=== PATIENT | male | born 1950 | race African-American/Black ===

== ENCOUNTER 2016-11-20 11:33 | Observation (INO) | payer MEDICARE, OTHER ==
[~2016-11-20] VITALS: Ht 193 cm; Wt 80.0 kg
[2016-11-20] VITALS (8 sets, daily range): BP systolic 131–184; BP diastolic 65–83; PULSE 60–101; RESP 15–20; TEMP 97.7–98.1; O2SAT 99–100
[~2016-11-20 11:33] MED LIST: ASPI81 PO; ENAL5TAB PO; FURO1TAB93 PO; IPRA17I INH; LOPR50TA12 PO; SPIR50TA21 PO; TAMS0.4C67 PO
[2016-11-20] MEDS ORDERED: SPIR25TA PO (11:51)
[2016-11-20] MEDS ORDERED: ASPI81TA67 PO (11:51)
[2016-11-20] MEDS ORDERED: TAMS5CAP PO (11:51)
[2016-11-20] MEDS ORDERED: ENAL2.5T PO (11:51)
[2016-11-20] MEDS ORDERED: FURO40TA PO (11:51)
[2016-11-20] MEDS ORDERED: METO50TA PO (11:51)
[2016-11-20] MEDS ORDERED: DIGO0.12 PO (11:51)
[2016-11-20] MEDS ORDERED: SODIUM CHLORIDE 0.9% FLUSH 10 ML FLUSH IVF PRN (12:00)
--- NOTE | 2016-11-20 12:06 | PD ---
HPI Chief Complaint: Seizure Time Seen by Provider: 11:53 Travel History International Travel<30 days: No Contact w/Intl Traveler<30days: No Traveled to known affect area: No History of Present Illness HPI This is a very pleasant 66-year-old male with a history of hypertension, CHF, cardiomyopathy, who presents today after having an episode where he became confused. Initial report was there was a seizure however there is no reported seizure activity. According to the patient, he was talking with his sister when he became confused and the next thing he remembers is being in the ambulance. The patient has no previous history of seizure. He has no history of stroke. There was no reported incontinence. He has no pain or discomfort on exam. The patient is awake and appropriate and answering questions. Family arrived at 12:15 and give history that they were with him. They state that while there at the je[employer] witness unloading groceries he cried out and started shaking. She reports that the test equipment mechanic caught him and he was shaking and foaming at the mouth. This lasted for about less than a minute. Family report that he had a first seizure one year ago. He was not put on any medication and he was not admitted. PFSH Past Medical History Blood Disorders: No Cancer: No Cardiovascular Problems: Yes High Cholesterol: Yes Congestive Heart Failure: Yes Diminished Hearing: No Endocrine: No Genitourinary: No Hypertension: Yes Immune Disorder: No Implanted Vascular Access Dvce: No Musculoskeletal: Yes Neurologic: Yes Psychiatric: No Reproductive: No Respiratory: Yes Seizures: Yes (once before today years ago) Influenza Vaccination: No Past Surgical History Surgical History: No Previous Surgery Abdominal Surgery: No Cardiac Surgery: No Ear Surgery: No Endocrine Surgery: No Eye Surgery: No Genitourinary Surgery: No Gynecologic Surgery: No Oral Surgery: No Thoracic Surgery: No Social History Alcohol Use: Yes (OCCASSIONAL BEER DRINKER) Tobacco Use: Yes (cigars on occasion) Substance Use: No Allergies-Medications (Allergen,Severity, Reaction): Coded Allergies: No Known Allergies (Verified , 11/20/16) Reported Meds & Prescriptions Reported Meds & Active Scripts Active Reported Flomax (Tamsulosin HCl) 0.4 Mg Cap 0.4 Mg PO HS Spironolactone 25 Mg Tab 25 Mg PO BIDPC Furosemide 40 Mg Tab 40 Mg PO DAILY Enalapril (Enalapril Maleate) 2.5 Mg Tab 2.5 Mg PO BID Digoxin 0.125 Mg Tab 0.125 Mg PO DAILY Aspirin DR (Aspirin) 81 Mg Tabdr 81 Mg PO DAILY Review of Systems Except as stated in HPI: all other systems reviewed are Neg General / Constitutional: No: Fever, Chills Eyes: No: Blurred Vision, Photophobia HENT: No: Headaches, Lightheadedness, Neck Pain Cardiovascular: No: Chest Pain or Discomfort, Palpitations, Irregular Rhythm Respiratory: No: Cough, Shortness of Breath Gastrointestinal: No: Nausea, Vomiting, Abdominal Pain Musculoskeletal: No: Weakness, Pain Neurologic: Positive: Change in Mentation, No: Weakness, Dizziness, Headache, Incontinence Physical Exam Exam Limitations: Uncooperative Narrative GENERAL: Well-developed well-nourished male in no acute respiratory distress. SKIN: Focused skin assessment warm/dry. HEAD: Atraumatic. Normocephalic. EYES: No scleral icterus. No injection or drainage. ENT: No nasal bleeding or discharge. Mucous membranes pink and moist. NECK: Trachea midline. No JVD. CARDIOVASCULAR: Regular rate and rhythm. No murmur appreciated. RESPIRATORY: No accessory muscle use. Clear to auscultation. Breath sounds equal bilaterally. GASTROINTESTINAL: Abdomen soft, non-tender, nondistended. MUSCULOSKELETAL: No obvious deformities. No clubbing. No cyanosis. No edema. Chronic venous stasis changes of the bilateral lower extremities NEUROLOGICAL: Awake and alert. No obvious cranial nerve deficits. Motor grossly within normal limits. Normal speech. A and O 4 Data Data Last Documented VS Vital Signs Date Time Temp Pulse Resp B/P Pulse Ox O2 Delivery O2 Flow Rate FiO2 11/20/16 12:16 99 Room Air 11/20/16 12:15 97.7 11/20/16 11:42 101 20 184/83 2 Orders Complete Blood Count With Diff (11/20/16 11:57) Comprehensive Metabolic Panel (11/20/16 11:57) Ckmb (Isoenzyme) Profile (11/20/16 11:57) Troponin I (11/20/16 11:57) Act Partial Throm Time (Ptt) (11/20/16 11:57) Prothrombin Time / Inr (Pt) (11/20/16 11:57) Chest, Single Ap (11/20/16 11:57) Ct Brain W/O Iv Contrast(Rout) (11/20/16 11:57) Ecg Monitoring (11/20/16 11:57) Iv Access Insert/Monitor (11/20/16 11:57) Oximetry (11/20/16 11:57) Sodium Chloride 0.9% Flush (Ns Flush) (11/20/16 12:00) CKMB (11/20/16 12:10) CKMB% (11/20/16 12:10) Admit Order (Ed Use Only) (11/20/16 13:38) Consult Neurology (11/20/16 ) Labs Laboratory Tests Test 11/20/16 12:10 White Blood Count 14.7 TH/MM3 Red Blood Count 3.64 MIL/MM3 Hemoglobin 10.6 GM/DL Hematocrit 33.0 % Mean Corpuscular Volume 90.6 FL Mean Corpuscular Hemoglobin 29.1 PG Mean Corpuscular Hemoglobin 32.1 % Concent Red Cell Distribution Width 14.9 % Platelet Count 372 TH/MM3 Mean Platelet Volume 9.2 FL Neutrophils (%) (Auto) 68.3 % Lymphocytes (%) (Auto) 19.4 % Monocytes (%) (Auto) 9.9 % Eosinophils (%) (Auto) 1.7 % Basophils (%) (Auto) 0.7 % Neutrophils # (Auto) 10.0 TH/MM3 Lymphocytes # (Auto) 2.8 TH/MM3 Monocytes # (Auto) 1.4 TH/MM3 Eosinophils # (Auto) 0.2 TH/MM3 Basophils # (Auto) 0.1 TH/MM3 CBC Comment DIFF FINAL Differential Comment Prothrombin Time 10.8 SEC Prothromb Time International 1.0 RATIO Ratio Activated Partial 25.2 SEC Thromboplast Time Sodium Level 138 MEQ/L Potassium Level 3.3 MEQ/L Chloride Level 105 MEQ/L Carbon Dioxide Level 14.4 MEQ/L Anion Gap 19 MEQ/L Blood Urea Nitrogen 15 MG/DL Creatinine 1.01 MG/DL Estimat Glomerular Filtration 90 ML/MIN Rate Random Glucose 90 MG/DL Calcium Level 8.8 MG/DL Total Bilirubin 0.3 MG/DL Aspartate Amino Transf 63 U/L (AST/SGOT) Alanine Aminotransferase 25 U/L (ALT/SGPT) Alkaline Phosphatase 318 U/L Total Creatine Kinase 334 U/L Creatine Kinase MB 7.7 NG/ML Creatine Kinase MB % 2.3 % Troponin I LESS THAN 0.02 NG/ML Total Protein 7.3 GM/DL Albumin 3.0 GM/DL MDM Medical Decision Making Medical Screen Exam Complete: Yes Emergency Medical Condition: Yes Differential Diagnosis TIA versus syncope versus seizure versus vasovagal syncope Narrative Course 66-year-old male presents after having a seizure. The patient had one last year. At that time he was not started on any antiseizure medications and was discharged home. Given this is his second seizure, I feel he should be admitted and have a neurology consult. The patient has not had any seizures since he's been here. He is awake alert and appropriate. He'll be admitted to the resident team. Case was discussed with the residents and will be admitted to Dr. Sargent's team. Diagnosis Primary Impression: Seizure Additional Impressions: Hypertension Cardiomyopathy Admitting Information Admitting Physician Requests: Admit Guanaco Steven MD November 20, 2016 12:06
[2016-11-20 12:18] LABS: BASOPHIL # 0.1 TH/MM3 (0-0.2); BASOPHIL % 0.7 % (0.0-2.0); EOSINOPHIL # 0.2 TH/MM3 (0-0.4); EOSINOPHIL % 1.7 % (0.0-4.0); HEMO FLAGS DIFF FINAL; LYMPH % 19.4 % (9.0-44.0); LYMPHOCYTE # 2.8 TH/MM3 (1.0-4.8); MEAN CELL VOLUME 90.6 FL (80.0-100.0); MEAN CORPUSCULAR HEMOGLOBIN 29.1 PG (27.0-34.0); MEAN CORPUSCULAR HGB CONC 32.1 % (32.0-36.0); MONO % 9.9 % (0.0-8.0); NEUT % 68.3 % (16.0-70.0); PLATELET COUNT 372 TH/MM3 (150-450); RED BLOOD COUNT 3.64 MIL/MM3 (4.50-5.90); RED CELL DISTRIBUTION WIDTH 14.9 % (11.6-17.2); WHITE BLOOD COUNT 14.7 TH/MM3 (4.0-11.0)
--- NOTE | 2016-11-20 12:24 | RADRPT ---
EXAM DATE/TIME: 11/20/2016 12:02 [facility] COMPARISON: No previous studies available for comparison. INDICATIONS : Syncope with shortness of breath. MEDICAL HISTORY : None. SURGICAL HISTORY : None. ENCOUNTER: Initial ACUITY: 1 day PAIN SCORE: 0/10 LOCATION: Bilateral chest FINDINGS: A single view of the chest demonstrates the lungs to be symmetrically aerated without evidence of mas s, infiltrate or effusion. The cardiomediastinal contours are unremarkable. Osseous structures are intact. CONCLUSION: No acute disease. Arnaud Madrid MD on November 20, 2016 at 12:22 Board Certified Radiologist. This report was verified electronically.
[2016-11-20 12:28] LABS: APTT (PATIENT) 25.2 SEC (24.3-30.1); PROTHROMBIN TIME - PATIENT 10.8 SEC (9.8-11.6)
[2016-11-20 12:33] LABS: ALT (GPT) 25 U/L (12-78); ANION GAP 19 MEQ/L (5-15); AST (GOT) 63 U/L (15-37); BICARBONATE 14.4 MEQ/L (21.0-32.0); BLOOD UREA NITROGEN 15 MG/DL (7-18); CHLORIDE 105 MEQ/L (98-107); GLOMERULAR FILTRATION RATE 90 ML/MIN (>89); POTASSIUM 3.3 MEQ/L (3.5-5.1); SODIUM (NA) 138 MEQ/L (136-145)
[2016-11-20 12:37] LABS: ALKALINE PHOSPHATASE 318 U/L (45-117); CREATINE KINASE 334 U/L (39-308); TOTAL BILIRUBIN ADULT 0.3 MG/DL (0.2-1.0)
--- NOTE | 2016-11-20 12:49 | RADRPT ---
EXAM DATE/TIME: 11/20/2016 12:30 [facility] COMPARISON: CT BRAIN W/O CONTRAST, September 30, 2015, 13:23. INDICATIONS : Confusion and dizziness since this morning. RADIATION DOSE: 56.38 CTDIvol (mGy) MEDICAL HISTORY : Hypertension. Cardiovascular disease SURGICAL HISTORY : ENCOUNTER: ACUITY: PAIN SCALE: LOCATION: TECHNIQUE: Multiple contiguous axial images were obtained of the head. Using automated exposure control and adj ustment of the mA and/or kV according to patient size, radiation dose was kept as low as reasonably a chievable to obtain optimal diagnostic quality images. FINDINGS: CEREBRUM: The ventricles are normal for age. No evidence of midline shift, mass lesion, hemorrhage or acute in farction. No extra-axial fluid collections are seen. POSTERIOR FOSSA: The cerebellum and brainstem are intact. The 4th ventricle is midline. The cerebellopontine angle i s unremarkable. EXTRACRANIAL: The visualized portion of the orbits is intact. SKULL: The calvaria is intact. No evidence of skull fracture. CONCLUSION: No acute intracranial disease. Jeff oWlf MD on November 20, 2016 at 12:46 Board Certified Radiologist. This report was verified electronically.
[2016-11-20 12:50] LABS: CKMB 7.7 NG/ML (0.5-3.6)
--- NOTE | 2016-11-20 13:46 | HHI.HP ---
[facility] Service Family Medicine Primary Care Physician Daniel Correa MD Admission Diagnosis Seizure, htn, cardiomyopathy Diagnoses: International Travel<30 Days: No Contact w/Intl Traveler<30days: No Known Affected Area: No History of Present Illness Patient is a 66-year-old male with a past medical history of hypertension, cardiomyopathy, congestive heart failure, and BPH that presents to the [facility] ED with a chief complaints of a witnessed seizure that happened around 11:30 AM this morning. The patient said that he has been feeling well with no acute illnesses in the last 2 weeks. The patient does not remember what happened, history was obtained from his sister who witnessed the seizure event. This morning he was at his sikh and he along with his sister and other sikh members were loading groceries into a car. 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 The patient's sister states that he fell back but did not hit his head because one of the sikh members caught him before he fell. His whole body was shaking and he was foaming at the mouth.the episode lasted for about 4 minutes. Patient did have a witnessed seizure in September 2015 for which he was evaluated at the [facility] ED. At that time, his EKG did not show any signs of dysrhythmia except for premature atrial complexes. His vital signs were stable and he was completely symptom free with no significant metabolic issues. He was offered to be admitted for further evaluation of his new onset seizure but he declined at that time and opted to follow up as an outpatient. He denies a history of febrile seizures or a seizure disorder in childhood. Patient states that he has not been taking his medications as prescribed because when he takes them he feels nauseous. He last took his medications 2 days ago. (Eko,Donna Tomlinson MD R1) Review of Systems Constitutional: DENIES: Fever, Chills Eyes: DENIES: Blurred vision, Eye pain Ears, nose, mouth, throat: COMPLAINS OF: Running Nose (every morning early), DENIES: Throat pain, Ear Pain Respiratory: COMPLAINS OF: Cough (every once in a while), DENIES: Shortness of breath Cardiovascular: COMPLAINS OF: Chest pain (shallow chest pain - like a little electric shock), Palpitations (one time), Syncope, Dyspnea on Exertion Gastrointestinal: COMPLAINS OF: Abdominal pain (chronic, once in a while, generalized ), DENIES: Bloody stools, Constipation, Nausea Genitourinary: COMPLAINS OF: Urinary incontinence, Urgency, Dysuria Musculoskeletal: DENIES: Muscle aches, Back pain, Neck pain Integumentary: COMPLAINS OF: Pruritus, DENIES: Rash Hematologic/lymphatic: DENIES: Bruising Neurologic: COMPLAINS OF: Headache (frontal), Localized weakness (left arm), Paresthesias, Seizures, Poor Balance Psychiatric: DENIES: Anxiety, Depression (Donna Cartagena MD R1) Past Family Social History Past Medical History Hypertension CHF Cardiomyopathy BPH Past Surgical History No history of surgeries Reported Medications Reported Meds & Active Scripts Active Reported Flomax (Tamsulosin HCl) 0.4 Mg Cap 0.4 Mg PO HS Spironolactone 25 Mg Tab 25 Mg PO BIDPC Furosemide 40 Mg Tab 40 Mg PO DAILY Enalapril (Enalapril Maleate) 2.5 Mg Tab 2.5 Mg PO BID Digoxin 0.125 Mg Tab 0.125 Mg PO DAILY Aspirin DR (Aspirin) 81 Mg Tabdr 81 Mg PO DAILY (Donna Cartagena MD R1) Allergies: Coded Allergies: No Known Allergies (Verified , 11/20/16) Family History No family history of seizures Sister has hypertension Denies hypertension in parents Social History Smokes 4-5 cigarettes daily Started smoking as a teenager and smoked more heavily in the past Drinks 1-2 beers every few days Denies drug use or illegal prescription drug use No marijuana use (Donna Cartagena MD R1) Physical Exam Vital Signs Vital Signs Date Time Temp Pulse Resp B/P Pulse Ox O2 Delivery O2 Flow Rate FiO2 11/20/16 13:42 76 15 147/68 100 Room Air 11/20/16 12:16 99 Room Air 11/20/16 12:15 97.7 99 Room Air 11/20/16 11:42 101 20 184/83 99 Nasal Cannula 2 Physical Exam GENERAL: This is a well-nourished, well-developed patient, in no apparent distress. Lying in bed, sister at bedside, very pleasant. SKIN: No rashes, ecchymoses or lesions. Cool and dry. No sacral ulcers noted. HEAD: Atraumatic. Normocephalic. No temporal or scalp tenderness. EYES: Pupils equal round and reactive. Extraocular motions intact. No scleral icterus. No injection or drainage. ENT: Nose without bleeding, purulent drainage or septal hematoma. Multiple lacerations on both sides of his tongue. Throat without erythema, tonsillar hypertrophy or exudate. Uvula midline. Airway patent. NECK: Trachea midline. No JVD or lymphadenopathy. Supple, nontender, no meningeal signs. CARDIOVASCULAR: Regular rate and rhythm without murmurs, gallops, or rubs. RESPIRATORY: Clear to auscultation. Breath sounds equal bilaterally. No wheezes , rales, or rhonchi. GASTROINTESTINAL: Abdomen soft, non-tender, nondistended. No hepato-splenomegaly , or palpable masses. No guarding. MUSCULOSKELETAL: Extremities without clubbing, cyanosis, or edema. No joint tenderness, effusion, or edema noted. No calf tenderness. NEUROLOGICAL: Awake and alert. Cranial nerves II through XII intact. Motor and sensory grossly within normal limits. Five out of 5 muscle strength in all muscle groups. Normal speech. [id number] intact. No pronator drift. No focal neurological deficits. Laboratory Laboratory Tests Test 11/20/16 12:10 White Blood Count 14.7 Red Blood Count 3.64 Hemoglobin 10.6 Hematocrit 33.0 Mean Corpuscular Volume 90.6 Mean Corpuscular Hemoglobin 29.1 Mean Corpuscular Hemoglobin 32.1 Concent Red Cell Distribution Width 14.9 Platelet Count 372 Mean Platelet Volume 9.2 Neutrophils (%) (Auto) 68.3 Lymphocytes (%) (Auto) 19.4 Monocytes (%) (Auto) 9.9 Eosinophils (%) (Auto) 1.7 Basophils (%) (Auto) 0.7 Neutrophils # (Auto) 10.0 Lymphocytes # (Auto) 2.8 Monocytes # (Auto) 1.4 Eosinophils # (Auto) 0.2 Basophils # (Auto) 0.1 CBC Comment DIFF FINAL Differential Comment Prothrombin Time 10.8 Prothromb Time International 1.0 Ratio Activated Partial 25.2 Thromboplast Time Sodium Level 138 Potassium Level 3.3 Chloride Level 105 Carbon Dioxide Level 14.4 Anion Gap 19 Blood Urea Nitrogen 15 Creatinine 1.01 Estimat Glomerular Filtration 90 Rate Random Glucose 90 Calcium Level 8.8 Total Bilirubin 0.3 Aspartate Amino Transf 63 (AST/SGOT) Alanine Aminotransferase 25 (ALT/SGPT) Alkaline Phosphatase 318 Total Creatine Kinase 334 Creatine Kinase MB 7.7 Creatine Kinase MB % 2.3 Troponin I LESS THAN 0.02 Total Protein 7.3 Albumin 3.0 (Donna Cartagena MD R1) Result Diagram: 11/20/16 1210 11/20/16 1210 Imaging Last Impressions Head CT 11/20/16 1157 Signed Impressions: Service Date/Time: Sunday, November 20, 2016 12:30 - CONCLUSION: No acute intracranial disease. Jeff Wolf MD Chest X-Ray 11/20/16 1157 Signed Impressions: Service Date/Time: Sunday, November 20, 2016 12:02 - CONCLUSION: No acute disease. Arnaud Madrid MD Course In the ED, a chest x-ray and CT brain without contrast were performed which were negative. Neurology was consulted. (Donna Cartagena MD R1) Assessment and Plan Assessment and Plan 66-year-old male with a past medical history of hypertension, cardiomyopathy, congestive heart failure, and BPH presents to the ED after a witnessed generalized tonic-clonic seizure. This is the patient's second witnessed seizure episode. He will be admitted on observation for further evaluation and management. Neurology has been consulted to help with management. Code Status Full code Discussed Condition With Discussed with Dr. Mars, PGY 2 (Donna Cartagena MD R1) Attending Attestation THIS CASE WAS DISCUSSED WITH THE RESIDENT PHYSICIAN. I HAVE REVIEWED THE RECORD AND AGREE WITH THE ABOVE NOTE AND PLAN OF CARE WAS DISCUSSED. I HAVE AUTHORIZED THE ORDER FOR PLACEMENT IN OUT-PATIENT OBSERVATION STATUS. (Ashok Nieves MD) Problem List: (1) Seizure Status: Acute Plan: Witnessed generalized tonic-clonic seizure with tongue biting, lasted for about 4 minutes per sister's report Second episode of witnessed seizure in a little over a year Not currently on any anti-seizure medications CT brain without contrast performed and negative Chest x-ray negative Metabolic panel significant for potassium of 3.3, anion gap of 19, elevated AST of 63 and alkaline phosphatase of 318 Creatinine kinase slightly elevated at 334 - most likely from muscle breakdown during seizure Troponin negative at less than 0.02, will trend 2 EKG in the ED shows sinus tachycardia (rate of 101) with occasional PVCs, left ventricular hypertrophy and possible left atrial enlargement, inverted T waves in V4 through 6. No signs of acute ACS We'll trend EKG 2 with troponins EEG pending Urinalysis with reflex culture pending Blood cultures pending Digoxin level pending UDS and alcohol level pending Neurology consulted - appreciate recommendations Ativan 2 mg IV when necessary seizure Tylenol 650 mg every 4 hours when necessary pain 1-10 (2) Congestive heart failure Status: Acute Plan: History of congestive heart failure, last admission at [facility] in December 2012 Echo performed at that time showed a dilated left ventricle with severely reduced systolic function, EF of 25-30%, mild to moderate aortic valve regurgitation, severe mitral valve regurgitation, moderate to severe tricuspid valve regurgitation, mild pulmonic valve regurgitation Patient's was started on digoxin 0.125 mg by mouth daily at that time Continue Lasix 40 mg by mouth daily Continue enalapril 2.5 mg by mouth daily Continue metoprolol 50 mg by mouth daily Continue spironolactone 25 mg by mouth daily (3) Hypertension Status: Acute Plan: * BP on admission was 184/83 * Patient states that he did not take any of his morning medications * Continue Vasotec 2.5 mg by mouth twice a day * Metoprolol 50 mg by mouth twice a day * Spironolactone 25 mg by mouth twice a day after meals (4) BPH (benign prostatic hyperplasia) Status: Acute Plan: Continue tamsulosin 0.4 mg by mouth at bedtime (5) FEN/DVT PPX/GI PPX/Nursing Orders Status: Acute Plan: Fluids: Oral fluids currently, may start fluids after echocardiogram Electrolytes: Will monitor and replace as needed Nutrition: Heart-healthy diet DVT Prophylaxis: Bilateral SCDs, Heparin subcutaneous Q8h GI Prophylaxis: Not required -Vitals Q4h -Monitor I's and O's -Fall precautions -Neurochecks -Seizure precautions -residential monitor with telemetry with continuous vital signs -Activity bed rest Disposition: Pending seizure evaluation (Donna Cartagena MD R1) Problem Qualifiers (1) Congestive heart failure: Qualified Code: I50.22 - Chronic systolic congestive heart failure Donna Cartagena MD R1 November 20, 2016 13:46 Ashok Nieves MD November 21, 2016 14:06
[2016-11-20] MEDS ORDERED: SODIUM CHLORIDE 0.9% FLUSH 10 ML FLUSH IV FLUSH PRN (14:30)
[2016-11-20] MEDS ORDERED: LORazepam 2 MG/ML VIAL IV PRN (14:30)
[2016-11-20] MEDS ORDERED: ACETAMINOPHEN 325 MG TAB PO PRN (14:30)
[2016-11-20] MEDS: SODIUM CHLORIDE 0.9% FLUSH 10 ML FLUSH IV FLUSH SCH ×2 (15:37→23:14)
[2016-11-20 15:54] LABS: DIGOXIN 0.1 NG/ML (0.8-2.0); MAGNESIUM 2.2 MG/DL (1.5-2.5)
[2016-11-20] MEDS ORDERED: ENALAPRILAT 1.25 MG/ML VIAL IV PUSH ONE (16:15)
[2016-11-20 16:29] LABS: BLOOD, URINE NEG (NEG); COMMENT (UR) CULT NOT INDICATED; CULTURE IF INDICATED CULT NOT INDICATED; GLUCOSE,URINE NEG (NEG); GRANULAR CAST, URINE 12 /lpf; HYALINE CAST, URINE 4 /lpf (RARE); KETONE, URINE NEG (NEG); MUCUS URINE FEW /lpf (OCC); NITRITE,URINE NEG (NEG); PH, URINE 5.5 (5.0-8.5); SQUAMOUS EPITHELIAL CELL URINE <1 /hpf (0-5); URINE COLOR YELLOW (YELLW/STRAW)
[2016-11-20 16:34] LABS: AMPHETAMINE, URINE NEG (NEG); BARBITURATES, URINE NEG (NEG); COCAINE, URINE NEG (NEG)
[2016-11-20] MEDS: SPIRONOLACTONE 25 MG TAB PO SCH (16:43)
[2016-11-20] MEDS ORDERED: POTASSIUM CHLORIDE 10 MEQ CONTROLLED RELEASE TAB PO ONE (17:00)
--- NOTE | 2016-11-20 20:37 | MB ---
cc: JEREL CHRISTIANSON DATE OF CONSULTATION 11/20/16 He is a 66-year-old right-handed man with hypertension. He is otherwise very healthy he tells me. About a year and a half ago he was going to a gas station. The next thing he knew he woke up in the ambulance, was told he had a seizure. Today he was at [employer], felt a little lightheaded and then the next he knows he was in the ambulance. He did bite his tongue. Subsequently admitted to the hospital. He has not been seen by neurology before here. EKG shows sinus rhythm here possibly some lateral ischemia. He was evidently shaking and foaming at the mouth, according to the city clerk. He has not been taking seizure meds. He denied any cardiovascular problems to me. MEDICATIONS 1. Flomax 2. Spironolactone 3. Lasix. 4. Enalapril. 5. Digoxin. 6. Aspirin. He denies any Wellbutrin or Tramadol use. REVIEW OF SYSTEMS He denied any recent fever, illness or headache. He denied any diabetes, hypercholesterolemia, myocardial infarction, coronary artery bypass graft, cardiac arrhythmia, stent, angioplasty, A fib, Coumadin, renal, hepatic or pulmonary disease, thyroid disease, lupus, ulcer, cancer or stroke. SOCIAL HISTORY He is a smoker. He has one drink beer day. Lives by himself. FAMILY HISTORY Negative for cancer, seizure, stroke. PAST MEDICAL HISTORY As above. He denies any history of seizure-like episodes, odd smells, taste, lena vu, waking up, wet the bed or biting his tongue. 1. Some cardiomyopathy although he did not know that himself. 2. CHF, 3. Hypertension, 4. BPH PHYSICAL EXAMINATION VITAL SIGNS: afebrile, 86, 18, 131/71. There were no carotid bruits. HEART: Regular rhythm. I did not detect a murmur. Pupils are equal, visual blandon are full. Extraocular movements intact without nystagmus. Face symmetric with normal sensation. Tongue was midline. There is no drift. He had normal strength in upper and lower extremities bilaterally. Toes downgoing bilaterally. DTRs are trace throughout. Pinprick is intact throughout including the occiput. He is not ataxic on [id number]. LABORATORY DATA CBC - white count 14.7, hematocrit 33, otherwise, normal. Urine drug screen was negative. Basic metabolic profile potassium 3.3 otherwise normal. LFTs essentially normal. CPK 334, troponin negative, BNP 199, albumin three. Coags normal. IMAGING STUDIES He had a chest x-ray that was negative. He had a CAT scan of the brain that was normal. IMPRESSION Second seizure. We are going to start him on Keppra. Check his thyroid, some blood work, an MRI and electroencephalogram. If his MRI is negative and his EEG is done, he could be discharged tomorrow. I note an echocardiogram in 2012 showed a low ejection fraction of 25-30%. Considering such a low ejection fraction, I think he should get at least a 30-day Holter monitor to make sure that he could not have had sudden cardiac arrhythmia causing the seizure or seizure-like episode. I would consider having cardiology see him here and setting up a 30-day monitor. I would defer to the med team on that to get that done. MD ARIEL Yanez/ /8:07 PM /8:23 PM
[2016-11-20] MEDS ORDERED: TAMSULOSIN HCL 0.4 MG CAP PO SCH (21:00)
[2016-11-20] MEDS ORDERED: GADODIAMIDE PF 287 MG/ML 5 ML VIAL (for RAD MRI) IV ONE ×2 (21:03→22:25)
[2016-11-20 21:53] LABS: FREE T4 1.31 NG/DL (0.76-1.46)
--- NOTE | 2016-11-20 21:56 | RADRPT ---
EXAM DATE/TIME: 11/20/2016 20:58 [facility] COMPARISON: No previous studies available for comparison. INDICATIONS : CVA. Seizure. CONTRAST: 16 cc Omniscan (gadodiamide) IV MEDICAL HISTORY : Hypertension. Seizures. Cardiovascular disease. CHF. SURGICAL HISTORY : None. ENCOUNTER: Subsequent ACUITY: 1 day PAIN SCORE: 0/10 LOCATION: cranial TECHNIQUE: Multiplanar, multisequence MRI of the brain was performed both prior to and following the administrat ion of paramagnetic contrast. FINDINGS: CEREBRUM: The ventricles are normal for age. No evidence of midline shift, mass lesion, hemorrhage or acute in farction. No extraaxial fluid collections are seen. The pituitary gland and suprasellar cistern are normal in configuration. WHITE MATTER: Heterogeneous high T2 signal abnormality is seen involving the ponce. This shows no diffusion weighted abnormality. There is no expansion of the ponce. No mass effect. It is mildly low in signal on the T1 -weighted sequence. The remaining white matter is unremarkable. In particular, no significant periven tricular small vessel ischemic change. POSTERIOR FOSSA: The cerebellum and brainstem are intact. The 4th ventricle is midline. The cerebellopontine angle is unremarkable. The cerebellar tonsils are normal in position. DIFFUSION IMAGING: No focal areas of restricted diffusion are seen. No evidence of acute infarction. EXTRACRANIAL: The visualized portions of the orbits and paranasal sinuses are unremarkable. POST-CONTRAST: No abnormal areas of parenchymal or dural enhancement. No evidence of blood-brain barrier breakdown. CONCLUSION: Abnormal signal involving the ponce as detailed above. It is nonspecific in nature. This finding can r elate to central pontine myelinolysis. Multiple small adjacent lacunar infarctions could have a simil ar appearance. No acute infarction is observed. Carlito Royal Jr., MD on November 20, 2016 at 21:47 Board Certified Radiologist. This report was verified electronically.
[2016-11-20] MEDS: levETIRAcetam 500 MG TAB PO SCH (22:51)
[2016-11-20] MEDS: METOPROLOL TARTRATE 50 MG TAB PO SCH (22:51)
[2016-11-20] MEDS: DOCUSATE SODIUM 50 MG/SENNA 8.6 MG TAB PO SCH (22:51)
[2016-11-20] MEDS: HEPARIN SODIUM - SQ 10,000 UNITS/ML VIAL SQ SCH (22:52)
[2016-11-20] MEDS: ENALAPRIL MALEATE 2.5 MG TAB PO SCH (23:13)
--- NOTE | 2016-11-21 01:04 | RADRPT ---
EXAM DATE/TIME: 11/21/2016 00:26 [facility] COMPARISON: No previous studies available for comparison. INDICATIONS : Cerebrovascular accident. MEDICAL HISTORY : Hypercholesterolemia. Congestive heart failure. Hypertension. Seizures. Syncope. Incontinence. Parest hesia. Measles. SURGICAL HISTORY : None. ENCOUNTER: Initial ACUITY: 1 day PAIN SCORE: 0/10 LOCATION: Bilateral neck PEAK SYSTOLIC VELOCITIES (cm/sec): ICA/CCA RATIO: Right: 1.5 Left: 1.5 ICA: Right: 136 Left: 100 CCA: Right: 89 Left: 67 ECA: Right: 92 Left: 72 VERTEBRAL: Right: 41 antegrade Left: 87 antegrade Elevated flow velocities and ICA/CCA ratios have been found to correlate with increased degrees of vessel stenosis, calculated as percentage of diameter relative to a normal segment of distal ICA/CCA FINDINGS: RIGHT CAROTID: No significant stenosis is visualized. The waveforms are within normal limits. LEFT CAROTID: No significant stenosis is visualized. The waveforms are within normal limits. Some calcified eccent felisha plaques are noted. VERTEBRAL ARTERIES: Antegrade flow is seen in both vertebral arteries. MISCELLANEOUS: None. CONCLUSION: Normal examination. José Miguel Martinez MD on November 21, 2016 at 1:02 Board Certified Radiologist. This report was verified electronically.
[2016-11-21 04:59] VITALS: BP 126/68; PULSE 66; RESP 18; TEMP 97.7; O2SAT 100
[2016-11-21] MEDS: HEPARIN SODIUM - SQ 10,000 UNITS/ML VIAL SQ SCH (06:37)
[2016-11-21 07:27] VITALS: BP 123/58; PULSE 65; RESP 20; TEMP 98.5; O2SAT 99
[2016-11-21 09:00] VITALS: PULSE 58
[2016-11-21] MEDS ORDERED: ASPIRIN EC 81 MG TABEC PO SCH (09:00)
[2016-11-21] MEDS ORDERED: FUROSEMIDE 40 MG TAB PO SCH (09:00)
[2016-11-21] MEDS ORDERED: DIGOXIN 0.125 MG TAB PO SCH (09:00)
[2016-11-21] MEDS: levETIRAcetam 500 MG TAB PO SCH (09:03)
[2016-11-21] MEDS: METOPROLOL TARTRATE 50 MG TAB PO SCH (09:03)
[2016-11-21] MEDS: SODIUM CHLORIDE 0.9% FLUSH 10 ML FLUSH IV FLUSH SCH (09:03)
[2016-11-21] MEDS: ENALAPRIL MALEATE 2.5 MG TAB PO SCH (09:03)
[2016-11-21] MEDS: DOCUSATE SODIUM 50 MG/SENNA 8.6 MG TAB PO SCH (09:04)
[2016-11-21] MEDS: SPIRONOLACTONE 25 MG TAB PO SCH (09:04)
[2016-11-21 09:23] LABS: ALKALINE PHOSPHATASE 259 U/L (45-117); ALT (GPT) 25 U/L (12-78); ANION GAP 7 MEQ/L (5-15); AST (GOT) 61 U/L (15-37); BICARBONATE 24.6 MEQ/L (21.0-32.0); BLOOD UREA NITROGEN 13 MG/DL (7-18); CHLORIDE 106 MEQ/L (98-107); CREATINE KINASE 521 U/L (39-308); GLOMERULAR FILTRATION RATE 121 ML/MIN (>89); POTASSIUM 4.6 MEQ/L (3.5-5.1); SODIUM (NA) 138 MEQ/L (136-145); TOTAL BILIRUBIN ADULT 0.4 MG/DL (0.2-1.0)
--- NOTE | 2016-11-21 09:56 | HHI.FPPN ---
Subjective Remarks FM Attending Note: Patient seen and examined. S: Chart and all resident physician notes reviewed. In summary this is a 66 year old male who was admitted with an admission diagnosis of Seizure,Htn, Cardiomyopathy. This patient reports that he was bending over while loading groceries in his car and apparently had a syncopal episode with associated seizure activity. He lost consciousness and witnesses noted that he was "foaming at the mouth". This patient had a previous episode approximately a year ago for which he was evaluated in the emergency room. At that time he was told that he possibly had a seizure disorder but the patient declined hospitalization. This patient has a history of a hypertensive cardiomyopathy but he is relatively asymptomatic. He denies any chest pain or palpitations. No significant dyspnea on exertion is noted; in fact he is quite active walking recently long distances without dyspnea on exertion. He also denies any orthopnea or paroxysmal nocturnal dyspnea. He did have a slight headache after the episode but since then has had no headache. He denies any regular headache symptoms. No visual changes have been noted. No myalgias or arthralgias are noted. His health is otherwise been relatively good. He notes that he was somewhat noncompliant with his cardiac medications due to some associated nausea. This morning he is feeling back to his baseline. Objective Vitals Vital Signs Date Time Temp Pulse Resp B/P Pulse Ox O2 Delivery O2 Flow Rate FiO2 11/21/16 07:27 98.5 65 20 123/58 99 11/21/16 04:59 97.7 66 18 126/68 100 11/20/16 23:48 97.9 60 18 143/65 100 11/20/16 19:30 98.0 86 18 131/71 100 11/20/16 16:25 70 11/20/16 16:01 98.1 70 19 167/78 100 11/20/16 13:42 76 15 147/68 100 Room Air 11/20/16 12:16 99 Room Air 11/20/16 12:15 97.7 99 Room Air 11/20/16 11:42 101 20 184/83 99 Nasal Cannula 2 I/O 11/20/16 11/20/16 11/20/16 11/21/16 11/21/16 11/21/16 07:00 15:00 23:00 07:00 15:00 23:00 Intake Total 920 ml 200 ml Output Total 2000 ml Balance -1080 ml 200 ml Intake Oral 920 ml 200 ml Output Urine Total 2000 ml # Voids 7 Result Diagram: 11/20/16 1210 11/21/16 0743 Other Results Item Value Date Time Erythrocyte Sedimentation Rate 72 mm/hr H 11/21/16 0105 Troponin I 0.10 NG/ML H 11/20/16 1830 Troponin I 0.12 NG/ML H 11/21/16 0105 Vitamin B12 Level 1678 PG/ML H 11/20/16 1830 Free Thyroxine 1.31 NG/DL 11/20/16 1830 Thyroid Stimulating Hormone 3rd Gen 0.734 uIU/ML 11/20/16 1830 Troponin I LESS THAN 0.02 NG/ML L 11/20/16 1210 Total Creatine Kinase 334 U/L H 11/20/16 1210 Alkaline Phosphatase 318 U/L H 11/20/16 1210 Aspartate Amino Transf (AST/SGOT) 63 U/L H 11/20/16 1210 Alanine Aminotransferase (ALT/SGPT) 25 U/L 11/20/16 1210 Total Bilirubin 0.3 MG/DL 11/20/16 1210 Magnesium Level 2.2 MG/DL 11/20/16 1210 Phosphorus Level 2.5 MG/DL 11/20/16 1210 B-Type Natriuretic Peptide 199 PG/ML H 11/20/16 1210 Total Protein 7.3 GM/DL 11/20/16 1210 Albumin 3.0 GM/DL L 11/20/16 1210 Digoxin Level 0.1 NG/ML L 11/20/16 1210 Urine Opiates Screen NEG 11/20/16 1535 Urine Barbiturates Screen NEG 11/20/16 1535 Urine Amphetamines Screen NEG 11/20/16 1535 Urine Benzodiazepines Screen NEG 11/20/16 1535 Urine Cocaine Screen NEG 11/20/16 1535 Urine Cannabinoids Screen NEG 11/20/16 1535 Ethyl Alcohol Level LESS THAN 3 MG/DL 11/20/16 1210 Urine Specific [place] 1.020 11/20/16 1535 Urine Protein 100 mg/dL H 11/20/16 1535 Urine Occult Blood NEG 11/20/16 1535 Urine Nitrite NEG 11/20/16 1535 Urine Leukocyte Esterase NEG 11/20/16 1535 An echocardiogram was done that showed the left ventricular cavity side to be dilated. Systolic function was moderately to severely reduced with the estimated ejection fraction at 30-35%. Moderate to severe aortic and mitral regurgitation were noted. Imaging Last 48 hours Impressions Carotid Artery Ultrasound 11/20/162008 Signed Impressions: Service Date/Time: Monday, November 21, 2016 00:26 - CONCLUSION: Normal examination. José Miguel Martinez MD Brain MRI 11/20/162008 Signed Impressions: Service Date/Time: Sunday, November 20, 2016 20:58 - CONCLUSION: Abnormal signal involving the ponce as detailed above. It is nonspecific in nature. This finding can relate to central pontine myelinolysis. Multiple small adjacent lacunar infarctions could have a similar appearance. No acute infarction is observed. Carlito Royal Jr., MD Head CT 11/20/161156 Signed Impressions: Service Date/Time: Sunday, November 20, 2016 12:30 - CONCLUSION: No acute intracranial disease. Jeff Wolf MD Chest X-Ray 11/20/161156 Signed Impressions: Service Date/Time: Sunday, November 20, 2016 12:02 - CONCLUSION: No acute disease. Arnaud Madrid MD Objective Remarks O. CONSTITUTIONAL/GEN: normally nourished, thin, in NAD. EYES: conjunctiva normal, PERRLA, EOMI. No tenderness to palpation over the temporal arteries. ENT: Mouth and pharynx normal. NECK: thyroid midline, carotids symmetrical. LUNGS: clear A-P, respiratory effort is normal. CARDIOVASCULAR: RR without murmur or gallop. No significant edema. GI/ABD: soft without masses, without organomegaly. NEURO: No focal deficits. SKIN: color normal, no rashes noted. HEME/LYMPH: no bruising, petechia or significant adenopathy MUSC: back is normal in appearance. Extremities are normal in appearance. PSYCH/MENTAL STATUS: Alert and oriented x 3. A/P Assessment and Plan 66-year-old male with a past medical history of hypertension, cardiomyopathy, congestive heart failure, and BPH presents to the ED after a witnessed generalized tonic-clonic seizure. This is the patient's second witnessed seizure episode. He will be admitted on observation for further evaluation and management. Neurology has been consulted to help with management. Problem List: (1) Seizure Status: Acute Plan: Witnessed generalized tonic-clonic seizure with tongue biting, lasted for about 4 minutes per sister's report Second episode of witnessed seizure in a little over a year Not currently on any anti-seizure medications CT brain without contrast performed and negative Chest x-ray negative Metabolic panel significant for potassium of 3.3, anion gap of 19, elevated AST of 63 and alkaline phosphatase of 318 Creatinine kinase slightly elevated at 334 - most likely from muscle breakdown during seizure Troponin negative at less than 0.02, will trend 2 EKG in the ED shows sinus tachycardia (rate of 101) with occasional PVCs, left ventricular hypertrophy and possible left atrial enlargement, inverted T waves in V4 through 6. No signs of acute ACS We'll trend EKG 2 with troponins EEG pending Urinalysis with reflex culture pending Blood cultures pending Digoxin level pending UDS and alcohol level pending Neurology consulted - appreciate recommendations Ativan 2 mg IV when necessary seizure Tylenol 650 mg every 4 hours when necessary pain 1-10 11/21/16 This patient appears to have had a second generalized seizure. Neurology consultation is reviewed and workup is underway. He did have an isolated elevation of his erythrocyte sedimentation rate of uncertain etiology. He has no symptoms suggestive of chronic infection. No symptoms suggestive of polymyalgia rheumatica. In no symptoms suggestive of temporal arteritis. His MRI did show some mildis in the area of the ponce and I am unsure if this could be pertinent. Will defer to neurology. (2) Congestive heart failure Status: Acute Plan: History of congestive heart failure, last admission at [facility] in December 2012 Echo performed at that time showed a dilated left ventricle with severely reduced systolic function, EF of 25-30%, mild to moderate aortic valve regurgitation, severe mitral valve regurgitation, moderate to severe tricuspid valve regurgitation, mild pulmonic valve regurgitation Patient's was started on digoxin 0.125 mg by mouth daily at that time Continue Lasix 40 mg by mouth daily Continue enalapril 2.5 mg by mouth daily Continue metoprolol 50 mg by mouth daily Continue spironolactone 25 mg by mouth daily 11/21/16 Cardiac status appears to be stable clinically. The suggestion of the Holter monitor was noted by neurology. Will discuss with the patient's audio video repairer. (3) Hypertension Status: Acute Plan: * BP on admission was 184/83 * Patient states that he did not take any of his morning medications * Continue Vasotec 2.5 mg by mouth twice a day * Metoprolol 50 mg by mouth twice a day * Spironolactone 25 mg by mouth twice a day after meals (4) BPH (benign prostatic hyperplasia) Status: Acute Plan: Continue tamsulosin 0.4 mg by mouth at bedtime (5) FEN/DVT PPX/GI PPX/Nursing Orders Status: Acute Plan: Fluids: Oral fluids currently, may start fluids after echocardiogram Electrolytes: Will monitor and replace as needed Nutrition: Heart-healthy diet DVT Prophylaxis: Bilateral SCDs, Heparin subcutaneous Q8h GI Prophylaxis: Not required -Vitals Q4h -Monitor I's and O's -Fall precautions -Neurochecks -Seizure precautions -radiation control technician with telemetry with continuous vital signs -Activity bed rest Disposition: Pending seizure evaluation (6) Elevated sed rate Status: Acute Plan: 11/21/16 Uncertain etiology. (7) LFT elevation Status: Acute Plan: 11/21/16 Mild elevation of SGOT, alkaline phosphatase of uncertain etiology. (8) Cardiomyopathy Status: Chronic Plan: 11/21/16 Clinically stable; followed by cardiology. Problem Qualifiers (1) Congestive heart failure: Qualified Code: I50.22 - Chronic systolic congestive heart failure (2) Cardiomyopathy: Qualified Code: I42.0 - Dilated cardiomyopathy Ashok Nieves MD November 21, 2016 09:56
--- NOTE | 2016-11-21 10:56 | EC ---
Study Study Date:11/21/2016 STUDY CONCLUSIONS SUMMARY - Left ventricle: The cavity size was dilated. Wall thickness was normal. Systolic function was moderately to severely reduced. The estimated ejection fraction was in the range of 30% to 35%. Diffuse hypokinesis. - Aortic valve: Transvalvular velocity was increased. There was very mild stenosis. Moderate to severe regurgitation. - Mitral valve: Moderate to severe regurgitation. - Left atrium: The atrium was mildly dilated. If LV function is below 40, please consider prescribing an ACEI or ARB or document rationale for non-use. PROCEDURE DATA STUDY STATUS: Elective. Procedure: Transthoracic echocardiography. Image quality was adequate. Scanning was performed from the parasternal, apical, and subcostal acoustic windows. Study completion: The patient tolerated the procedure well. Transthoracic echocardiography. M-mode, complete 2D, complete spectral Doppler, and color Doppler. Patient status: Inpatient. CARDIAC ANATOMY LEFT VENTRICLE: The cavity size was dilated. Wall thickness was normal. Systolic function was moderately to severely reduced. The estimated ejection fraction was in the range of 30% to 35%. Diffuse hypokinesis. AORTIC VALVE: Trileaflet; moderately thickened, mildly calcified leaflets. Doppler: Transvalvular velocity was increased. There was very mild stenosis. Moderate to severe regurgitation. Mean gradient: 7mm Hg (S). Peak gradient: 15mm Hg (S). AORTA: Aortic root: The aortic root was normal in size. MITRAL VALVE: Mildly thickened leaflets, . Doppler: Transvalvular velocity was within the normal range. There was no evidence for stenosis. Moderate to severe regurgitation. LEFT ATRIUM: The atrium was mildly dilated. RIGHT VENTRICLE: The cavity size was normal. Wall thickness was normal. PULMONIC VALVE: Poorly visualized. Doppler: Transvalvular velocity was within the normal range. There was no evidence for stenosis. No regurgitation. TRICUSPID VALVE: Structurally normal valve. Doppler: Transvalvular velocity was within the normal range. Trace regurgitation. PULMONARY ARTERY: The main pulmonary artery was normal-sized. RIGHT ATRIUM: The atrium was normal in size. PERICARDIUM: There was no pericardial effusion. SYSTEMIC VEINS: Inferior vena cava: The vessel was normal in size. BASIC MEASUREMENTS ADULT Normal Left ventricle LV internal dimension, ED, chordal level, *59.3 mm 43-52 PLAX LV internal dimension, ES, chordal level, *51.9 mm 23-38 PLAX Fractional shortening, chordal level, PLAX *12 % >29 LV posterior wall thickness, ED 9.28 mm IVS/LVPW ratio, ED 1.14 <1.3 Ventricular septum Septal thickness, ED 10.6 mm Aortic valve Leaflet separation 17 mm 15-26 Left atrium Anterior-posterior dimension 41 mm Right ventricle RV internal dimension, ED, PLAX 19.9 mm 19-38 BASIC MEASUREMENTS ADULT Normal Aortic valve Leaflet separation 17 mm 15-26 Aorta Root diameter, ED 25 mm 20-37 DOPPLER MEASUREMENTS ADULT Normal Aortic valve Peak velocity, S 188 cm/s Mean velocity, S 128 cm/s VTI, S 42.3 cm Mean gradient, S 7 mm Hg Peak gradient, S 15 mm Hg Mitral valve Peak E-wave velocity 62.7 cm/s Peak A-wave velocity 87.9 cm/s Peak E/A ratio 0.7 Maximal regurgitant velocity 510 cm/s Tricuspid valve Regurgitant peak velocity 135 cm/s Peak RV-RA gradient, S 7 mm Hg Maximal regurgitant velocity 135 cm/s Systemic veins Estimated CVP 5 mm Hg LEGEND: Mean values are shown as u=mean value. Asterisk (*) berumen values outside specified normal range. Prepared and signed by Simón Franco [id number]
[2016-11-21 11:27] VITALS: BP 98/57; PULSE 67; RESP 18; TEMP 98.5; O2SAT 100
--- NOTE | 2016-11-21 11:32 | MB ---
cc: WILD RAGSDALE M.D. DATE OF CONSULTATION: 11/21/2016. REASON FOR CONSULTATION: "Set up Holter monitor as an outpatient". HISTORY OF PRESENT ILLNESS: The patient is a 66-year-old -Chinese male, well-known to me, with a history of congestive heart failure, severe nonischemic dilated cardiomyopathy, chronic deep venous insufficiency who was brought to the hospital after a syncopal episode. The patient states he was helping a friend unload some boxes when he suddenly became lightheaded, subsequently losing consciousness. Apparently there was witnessed seizure activity. The patient states that when he regained consciousness there was some disorientation for about 30 minutes. Otherwise he has felt well. He exercises most days. The patient denies any recent chest pain, palpitations, lightheadedness, pedal edema, paroxysmal nocturnal dyspnea. Occasionally he does experience mild dyspnea with exertion. He reports compliance with his medications. PAST MEDICAL HISTORY: 1. Severe nonischemic cardiomyopathy with ejection fraction of 20% to 25% by his last echo in 2012. In September of 2009, he underwent cardiac catheterization showing normal coronary arteries with ejection fraction of 20% to 25%. 2. Congestive heart failure exacerbation December of 2012. 3. Chronic deep venous insufficiency. 4. 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 CARDIAC MEDICATIONS AT HOME: 1. Aspirin 81 milligrams daily. 2. Digoxin 0.125 milligrams daily. 3. Enalapril 2.5 milligrams twice a day. 4. Furosemide 40 milligrams daily. 5. Metoprolol tartrate 50 milligrams twice a day. 6. Spironolactone 25 milligrams daily. ALLERGIES: NO KNOWN DRUG ALLERGIES. FAMILY HISTORY: Noncontributory. SOCIAL HISTORY: The patient smokes cigarettes on occasion. He denies alcohol or drug abuse. REVIEW OF SYSTEMS: Review of systems as in the history of present illness otherwise negative or noncontributory. He also denies headache, abdominal pain, melena, dyspepsia, diarrhea, fevers, bright red blood per rectum. PHYSICAL EXAMINATION: VITAL SIGNS: On physical examination, his blood pressure is 123/58 with a pulse of 65, respirations 20. GENERAL: In general, he is a well-developed, well-nourished -Chinese male in no acute distress. HEAD, EYES, EARS, NOSE, THROAT: On HEENT examination, jugular venous pressure is normal. Carotid pulses are 2+ bilaterally and without bruits. CHEST: Examination of the chest reveals unlabored respiratory effort with clear lung blandon. CARDIAC: On cardiac examination, he has a regular rhythm and rate without S3 or S4. There is a grade 1/6 systolic murmur heard along the left sternal border. ABDOMEN: On abdominal examination, he has a soft, nontender abdomen. Bowel sounds are present. There is no definite hepatosplenomegaly. EXTREMITIES: Examination of extremities reveals no clubbing, cyanosis or edema. LABORATORY DATA: Laboratory data includes WBC 14.7, hemoglobin 10.6, platelets 372,000. Potassium 3.3, BUN 15, creatinine 1.01, AST 63, ALT 25. CK 334 with a CK-MB percentage 2.3, troponin less than 0.12. IMAGING STUDIES: Chest x-ray shows no acute disease. EKGS: EKG shows sinus bradycardia, T-wave abnormality, consider anterior and high lateral ischemia. IMPRESSION: Syncope, possible seizure in a 66-year-old -Chinese male with a history of severe nonischemic cardiomyopathy with ejection fraction of 20% to 25% by his last echocardiogram in 2012, history of multivalvular disease. I have been asked to see the patient to set up an outpatient monitor. I would agree that his episode may have been precipitated by a self-limited ventricular tachyarrhythmia resulting in cerebral hypoperfusion. Unfortunately, despite extensive discussions I have had with patient as an outpatient recommending AICD implant, the patient declines. He continues to decline AICD implantation at this time. The slight elevations in the troponin level are nonspecific. There is no definite evidence for acute coronary syndrome. He did have normal coronary arteries on cardiac catheterization a few years ago. RECOMMENDATIONS: 1. Would continue his usual home cardiac medications. 2. Will set the patient up for an outpatient 3-week monitor. 3. Will follow up as needed. MD SLICK Santana/SHAHRIAR /9:03 AM /11:22 AM LINDA
--- NOTE | 2016-11-21 11:33 | HHI.DCPOC ---
Discharge Care Plan Diagnosis: (1) Congestive heart failure (2) Seizure (3) Hypertension (4) Cardiomyopathy (5) Elevated sed rate (6) BPH (benign prostatic hyperplasia) Goals to Promote Your Health * To prevent worsening of your condition and complications * To maintain your health at the optimal level Directions to Meet Your Goals Take your medications as prescribed Follow your dietary instruction Follow activity as directed Keep your appointments as scheduled Take your immunizations and boosters as scheduled If your symptoms worsen call your PCP, if no PCP go to Urgent Care Center or Emergency Room Smoking is Dangerous to Your Health. Avoid second hand smoke Call the 24-hour hour crisis hotline for domestic abuse at Peggy Hart MD November 21, 2016 11:33
[2016-11-21] MEDS ORDERED: levETIRAcetam PO (11:34)
--- NOTE | 2016-11-21 12:21 | MG ---
cc: JEREL CHRISTIANSON Lab No: [id number] Date: Age: 66 Sex: M Race: HISTORY: A 66-year-old man with confusion, fell, shaking, seizure, second seizure. DESCRIPTION OF THE RECORDING: The recording shows a symmetric 8 Hz 60 microvolt posterior rhythm. The recording overall is synchronous and symmetric. Hyperventilation is not performed. Photic stimulation is performed without significant posterior driving. IMPRESSION: A normal awake EEG. No evidence for a focal or diffuse abnormality. MD ARIEL Yanez/SHAHRIAR /11:50 AM /12:18 PM
--- NOTE | 2016-11-21 12:21 | HHI.PR ---
Subjective Remarks no new spells no hx sparrow b4 yest temples nontender no hx mosque tenderness Objective Vital Signs Date Time Temp Pulse Resp B/P Pulse Ox O2 Delivery O2 Flow Rate FiO2 11/21/16 11:27 98.5 67 18 98/57 100 11/21/16 09:00 58 11/21/16 07:27 98.5 65 20 123/58 99 11/21/16 04:59 97.7 66 18 126/68 100 11/20/16 23:48 97.9 60 18 143/65 100 11/20/16 19:30 98.0 86 18 131/71 100 11/20/16 16:25 70 11/20/16 16:01 98.1 70 19 167/78 100 11/20/16 13:42 76 15 147/68 100 Room Air I/O 11/20/16 11/20/16 11/20/16 11/21/16 11/21/16 11/21/16 07:00 15:00 23:00 07:00 15:00 23:00 Intake Total 920 ml 200 ml Output Total 2000 ml Balance -1080 ml 200 ml Intake Oral 920 ml 200 ml Output Urine Total 2000 ml # Voids 7 Result Diagram: 11/20/16 1210 11/21/16 0743 Objective Remarks nl gait nad nontender temples bialt Assessment and Plan Assessment and Plan imp eeg neg mri i reviewed ponce ok fu dr orellana with monitor idw him refused aicd even with risk esr 72 residents will fu in clinic keppra [address] x 6 months Blayne Hua dc, MD November 21, 2016 12:21
--- NOTE | 2016-11-21 15:06 | EKG ---
Date Performed: 11/20/2016 Time Performed: 11:43:32 PTAGE: 66 years EKG: SINUS TACHYCARDIA WITH OCCASIONAL VENTRICULAR PREMATURE COMPLEXES POSSIBLE LEFT ATRIAL ENLA RGEMENT LEFT VENTRICULAR HYPERTROPHY AND ST-T CHANGE ABNORMAL ECG INTERPRETATION BASED ON A DEFAULT A GE OF 40 YEARS Since PREVIOUS TRACING on 09/30/2015, the PVCs are new, otherwise no significant change. PREVI OUS TRACIN09/30/2015 13.00 DOCTOR: Al Tavares Interpretating Date/Time 11/21/2016 15:04:26
--- NOTE | 2016-11-21 15:21 | EKG ---
Date Performed: 11/20/2016 Time Performed: 18:25:17 PTAGE: 66 years EKG: Sinus rhythm POSSIBLE LEFT ATRIAL ENLARGEMENT MODERATE T-WAVE ABNORMALITY, CONSIDER ANTEROLATERAL ISCHEMIA ABNORM AL ECG LVH with secondary ST-T wave change Borderline atrial abnormality Since prevoius tracing on , PVCs no longer present, otherwise no significant change. PREVIOUS TRACING : 11/20/2016 11.43 DOCTOR: Al Tavares Interpretating Date/Time 11/21/2016 15:20:38
--- NOTE | 2016-11-21 15:23 | EKG ---
Date Performed: 11/21/2016 Time Performed: 00:15:40 PTAGE: 66 years EKG: Sinus bradycardia LVH with secondary ST-T change Atrial abnormality Since PREVIOUS TRACING on 11/20/2016, no significant change. PREVIOUS TRACIN11/20/2016 18.2 5 DOCTOR: Al Tavares Interpretating Date/Time 11/21/2016 15:21:37
[2016-11-24 11:10] LABS: RAPID PLASMA REAGIN SCREEN NON-REACTIVE (NON-REACTVE)
[2016-11-25 17:48] LABS: ANA SCREEN POS (NEG)
== END 2016-11-21 14:31 | disposition home or self-care (01) ==
LOC: NEPC 11:33 → NEDA 13:40 → NEPHCDU 15:42
PROVIDERS: ADMIT Family Medicine; ATTEND Family Medicine
DX: G40.409 Other generalized epilepsy and epileptic syndromes, not intractable, without status epilepticus (principal); I50.22 Chronic systolic (congestive) heart failure; I43 Cardiomyopathy in diseases classified elsewhere; E78.00 Pure hypercholesterolemia, unspecified; F17.200 Nicotine dependence, unspecified, uncomplicated; Z79.899 Other long term (current) drug therapy; N40.0 Benign prostatic hyperplasia without lower urinary tract symptoms; I11.0 Hypertensive heart disease with heart failure; I87.2 Venous insufficiency (chronic) (peripheral); I42.0 Dilated cardiomyopathy; R55 Syncope and collapse; I08.1 Rheumatic disorders of both mitral and tricuspid valves; R00.1 Bradycardia, unspecified
CPT/HCPCS: 70450; 70553; 71010; 80053; 80162; 80307; 81001; 82550; 82552; 82607; 83605; 83735; 83880; 84100; 84425; 84439; 84443; 84484; 85025; 85610; 85652; 85730; 86038; 86039; 86592; 87040; 93005; 93306; 93880; 95819; 96374; 99285; A9579; G0378; J1644

== ENCOUNTER 2017-03-11 09:59 | Inpatient (IN) | payer MEDICARE ==
[~2017-03-11] VITALS: Ht 185.4 cm; Wt 73.6 kg
[~2017-03-11 09:59] MED LIST changes: -ASPI81 PO; +ASPI81TA67 PO; +DIGO0.12 PO; +ENAL2.5T PO; -ENAL5TAB PO; -FURO1TAB93 PO; +FURO40TA PO; -IPRA17I INH; -LOPR50TA12 PO; +METO50TA PO; +SPIR25TA PO; -SPIR50TA21 PO; -TAMS0.4C67 PO; +TAMS5CAP PO; +levETIRAcetam PO
[2017-03-11 10:01] VITALS: BP 160/75; PULSE 88; RESP 20; TEMP 98.5; O2SAT 100
[2017-03-11] MEDS ORDERED: SODIUM CHLORIDE 0.9% FLUSH 10 ML FLUSH IV FLUSH PRN (10:45)
--- NOTE | 2017-03-11 11:05 | RADRPT ---
EXAM DATE/TIME: 03/11/2017 10:49 [facility] COMPARISON: CHEST SINGLE AP, November 20, 2016, 12:02. INDICATIONS : Chest pain for 3 days. MEDICAL HISTORY : Hypertension. Congestive heart failure. SURGICAL HISTORY : None. ENCOUNTER: Initial ACUITY: 3 days PAIN SCORE: 7/10 LOCATION: Bilateral chest FINDINGS: A single view of the chest demonstrates the lungs to be symmetrically aerated without evidence of mas s, infiltrate or effusion. The cardiomediastinal contours are unremarkable. Osseous structures are intact. CONCLUSION: Normal examination. José Miguel Martinez MD on March 11, 2017 at 11:03 Board Certified Radiologist. This report was verified electronically.
[2017-03-11 11:13] LABS: HEMATOCRIT 25.6 % (39.0-51.0); MEAN CELL VOLUME 92.9 FL (80.0-100.0); MEAN CORPUSCULAR HEMOGLOBIN 31.7 PG (27.0-34.0); MEAN CORPUSCULAR HGB CONC 34.1 % (32.0-36.0); PLATELET COUNT 478 TH/MM3 (150-450); RED BLOOD COUNT 2.76 MIL/MM3 (4.50-5.90); RED CELL DISTRIBUTION WIDTH 20.5 % (11.6-17.2); WHITE BLOOD COUNT 20.7 TH/MM3 (4.0-11.0)
[2017-03-11 11:16] LABS: HEMO FLAGS AUTO DIFF
[2017-03-11 11:23] LABS: INTERNATIONAL NORMALIZED RATIO 1.2 RATIO; PROTHROMBIN TIME - PATIENT 12.8 SEC (9.8-11.6)
[2017-03-11 11:24] LABS: ALKALINE PHOSPHATASE 640 U/L (45-117); ALT (GPT) 88 U/L (12-78); ANION GAP 11 MEQ/L (5-15); AST (GOT) 199 U/L (15-37); BLOOD UREA NITROGEN 21 MG/DL (7-18); CHLORIDE 101 MEQ/L (98-107); GLOMERULAR FILTRATION RATE 86 ML/MIN (>89); POTASSIUM 3.5 MEQ/L (3.5-5.1); SODIUM (NA) 133 MEQ/L (136-145); TOTAL BILIRUBIN ADULT 22.2 MG/DL (0.2-1.0)
--- NOTE | 2017-03-11 11:35 | PD ---
HPI Chief Complaint: Chest Pain Time Seen by Provider: 10:12 Travel History International Travel<30 days: No Contact w/Intl Traveler<30days: No Traveled to known affect area: No History of Present Illness HPI The patient is 66 years old and arrives complaining of retrosternal chest pain. It has been present for a couple days. He also complains of generalized abdominal pain. Additionally he notes some shortness of breath and abdominal pain with deep inspiration. He has developed yellow discoloration of the eyes which has been constant over the last day or 2. He's had no vomiting or fever. He notes some dark stool and red blood per rectum for several days. He denies alcohol abuse. PFSH Past Medical History Blood Disorders: No Cancer: No Cardiovascular Problems: Yes High Cholesterol: Yes Congestive Heart Failure: Yes Diminished Hearing: No Endocrine: No Genitourinary: No Hypertension: Yes Immune Disorder: No Implanted Vascular Access Dvce: No Musculoskeletal: Yes Neurologic: Yes Psychiatric: No Reproductive: No Respiratory: Yes Seizures: Yes (once before today years ago) Past Surgical History Surgical History: No Previous Surgery Social History Alcohol Use: Yes (OCCASSIONAL BEER DRINKER) Tobacco Use: Yes (cigars on occasion) Substance Use: No Allergies-Medications (Allergen,Severity, Reaction): Coded Allergies: No Known Allergies (Verified , 11/20/16) Reported Meds & Prescriptions Reported Meds & Active Scripts Active Reported Flomax (Tamsulosin HCl) 0.4 Mg Cap 0.4 Mg PO HS Spironolactone 25 Mg Tab 25 Mg PO BIDPC Metoprolol Tartrate 50 Mg Tab 50 Mg PO BID Furosemide 40 Mg Tab 40 Mg PO DAILY Enalapril (Enalapril Maleate) 2.5 Mg Tab 2.5 Mg PO BID Digoxin 0.125 Mg Tab 0.125 Mg PO DAILY Aspirin DR (Aspirin) 81 Mg Tabdr 81 Mg PO DAILY Review of Systems Except as stated in HPI: all other systems reviewed are Neg General / Constitutional: No: Fever Cardiovascular: Positive: Chest Pain or Discomfort Respiratory: No: Cough Gastrointestinal: Positive: Diarrhea Physical Exam Narrative GENERAL: Well-nourished well-developed 66-year-old male speaking full sentences SKIN: Warm and dry. HEAD: Atraumatic. Normocephalic. EYES: Pupils equal and round. There is scleral icterus. ENT: No nasal bleeding or discharge. Mucous membranes pink and moist. NECK: Trachea midline. No JVD. CARDIOVASCULAR: Regular rate and rhythm. RESPIRATORY: No accessory muscle use. Clear to auscultation. Breath sounds equal bilaterally. GASTROINTESTINAL: Soft. Generalized tenderness present. MUSCULOSKELETAL: Extremities without clubbing, cyanosis, or edema. No obvious deformities. NEUROLOGICAL: Awake and alert. No obvious cranial nerve deficits. Motor grossly within normal limits. Five out of 5 muscle strength in the arms and legs. Normal speech. PSYCHIATRIC: Appropriate mood and affect; insight and judgment normal. Data Data Last Documented VS Vital Signs Date Time Temp Pulse Resp B/P (MAP) Pulse Ox O2 Delivery O2 Flow Rate FiO2 03/11/17 10:01 98.5 88 20 160/75 (103) 100 Room Air Vital signs reviewed Orders Orders Complete Blood Count With Diff (03/11/17 10:33) Comprehensive Metabolic Panel (03/11/17 10:33) Lipase (03/11/17 10:33) Prothrombin Time / Inr (Pt) (03/11/17 10:33) Act Partial Throm Time (Ptt) (03/11/17 10:33) Ct Abd/Pel W Iv Contrast(Rout) (03/11/17 10:33) Iv Access Insert/Monitor (03/11/17 10:33) Ecg Monitoring (03/11/17 10:33) Oximetry (03/11/17 10:33) Sodium Chloride 0.9% Flush (Ns Flush) (03/11/17 10:45) Electrocardiogram (03/11/17 10:33) Troponin I (03/11/17 10:33) Chest, Single Ap (03/11/17 ) B-Type Natriuretic Peptide (03/11/17 11:35) Iohexol 350 Inj (Omnipaque 350 Inj) (03/11/17 12:21) Piperacil-Tazo 3.375 Gm Premix (Zosyn 3. (03/11/17 12:45) Consult Gastroenterology (03/11/17 ) Admit Order (Ed Use Only) (03/11/17 14:39) Admit To Inpatient (03/11/17 ) Vital Signs (Adult) Q4H (03/11/17 14:38) Activity Oob Ad Sophia (03/11/17 14:38) Intake + Output KERI.QSHIFT (03/11/17 14:38) Diet Npo (03/11/17 Dinner) Sodium Chlor 0.9% 1000 Ml Inj (Ns 1000 M (03/11/17 15:00) Sodium Chloride 0.9% Flush (Ns Flush) (03/11/17 14:45) Sodium Chloride 0.9% Flush (Ns Flush) (03/11/17 21:00) Ondansetron Inj (Zofran Inj) (03/11/17 14:45) Comprehensive Metabolic Panel (03/12/17 06:00) Complete Blood Count With Diff (03/12/17 06:00) Scd Bilateral/Knee High KERI.BID (03/11/17 14:38) Naloxone Inj (Narcan Inj) (03/11/17 14:45) Docusate Sodium-Senna (Oxana-Colace) (03/11/17 21:00) Magnesium Hydroxide Liq (Milk Of Magnesi (03/11/17 14:45) Sennosides (Senokot) (03/11/17 14:45) Bisacodyl Supp (Dulcolax Supp) (03/11/17 14:45) Lactulose Liq (Lactulose Liq) (03/11/17 14:45) Inpatient Certification (03/11/17 ) Labs Laboratory Tests Test 03/11/17 10:35 White Blood Count 20.7 TH/MM3 Red Blood Count 2.76 MIL/MM3 Hemoglobin 8.7 GM/DL Hematocrit 25.6 % Mean Corpuscular Volume 92.9 FL Mean Corpuscular Hemoglobin 31.7 PG Mean Corpuscular Hemoglobin Concent 34.1 % Red Cell Distribution Width 20.5 % Platelet Count 478 TH/MM3 Mean Platelet Volume 9.3 FL CBC Comment AUTO DIFF Differential Total Cells Counted 100 Neutrophils % (Manual) 88 % Band Neutrophils % 1 % Lymphocytes % 4 % Monocytes % 7 % Neutrophils # (Manual) 18.4 TH/MM3 Differential Comment FINAL DIFF MANUAL Platelet Estimate HIGH Platelet Morphology Comment NORMAL Target Cells 2+ Prothrombin Time 12.8 SEC Prothromb Time International Ratio 1.2 RATIO Activated Partial Thromboplast Time 28.0 SEC Blood Urea Nitrogen 21 MG/DL Creatinine 1.05 MG/DL Random Glucose 115 MG/DL Total Protein 6.3 GM/DL Albumin 1.9 GM/DL Calcium Level 8.4 MG/DL Alkaline Phosphatase 640 U/L Aspartate Amino Transf (AST/SGOT) 199 U/L Alanine Aminotransferase (ALT/SGPT) 88 U/L Total Bilirubin 22.2 MG/DL Sodium Level 133 MEQ/L Potassium Level 3.5 MEQ/L Chloride Level 101 MEQ/L Carbon Dioxide Level 21.0 MEQ/L Anion Gap 11 MEQ/L Estimat Glomerular Filtration Rate 86 ML/MIN Troponin I LESS THAN 0.02 NG/ML B-Type Natriuretic Peptide 59 PG/ML Lipase 1151 U/L [facility] Medical Decision Making Medical Screen Exam Complete: Yes Emergency Medical Condition: Yes Differential Diagnosis Constipation, Gastritis, Acute Cholecystitis, Biliary Colic, Pancreatitis, VALENTE , Hepatitis, Bowel Obstruction, Cystitis, Mesenteric Ischemia, AAA, Appendicitis , Renal Stone/Hydronephrosis, GERD, perforated viscous Narrative Course CBC & BMP Diagram 03/11/17 10:35 Total Protein 6.3 L, Albumin 1.9 L, Calcium Level 8.4 L, Alkaline Phosphatase 640 H, Aspartate Amino Transf (AST/SGOT) 199 H, Alanine Aminotransferase (ALT/ SGPT) 88 H, Total Bilirubin 22.2 H Lipase 1151 BNP 59 Tn < 0.02 EKG shows a sinus rhythm at 81 with normal axis and normal intervals INR 1.2 Last 24 hours Impressions Abdomen/Pelvis CT 03/11/17 1033 Signed Impressions: Service Date/Time: February 12:12 - CONCLUSION: 1. Extensive hepatic masses consistent with primary or metastatic neoplasm. 2. Multiple non-calcified pulmonary nodules with the largest located in the left lower lobe measuring 2.3 cm consistent with metastatic disease until proven otherwise. 3. Biliary ductal dilatation of indeterminate etiology. MRI of the abdomen with contrast and MRCP may be helpful for further evaluation if clinically indicated. 4. 11 mm splenic nodules which are indeterminate. 5. 2.7 x 1.9 cm left adrenal mass which is indeterminate. 6. Ascites. Aguila Solano MD Chest X-Ray 03/11/17 0000 Signed Impressions: Service Date/Time: February 10:49 - CONCLUSION: Normal examination. José Miguel Martinez MD The liver findings are new. Zosyn started. The patient will be admitted for further evaluation. Case discussed with Dr. Pool and Dr. Freeman. Diagnosis Primary Impression: Hyperbilirubinemia Additional Impressions: Liver masses Pancreatitis Qualified Codes: K85.90 - Acute pancreatitis without necrosis or infection, unspecified Admitting Information Admitting Physician Requests: Ganga Erazo MD Mar 11, 2017 11:35
[2017-03-11 12:06] LABS: BANDS 1 % (0-6); NEUTROPHIL # MANUAL DIFF 18.4 TH/MM3 (1.8-7.7); POLYS (SEG NEUTROPHILS) 88 % (16-70); WBC DIFF SAMPLE 100
[2017-03-11 12:07] LABS: PLATELET ESTIMATE SMEAR HIGH (NORMAL); PLATELET MORPHOLOGY NORMAL (NORMAL); SCAN/DIFF FINAL DIFF MANUAL; TARGET CELLS 2+ (NORMAL)
[2017-03-11] MEDS ORDERED: IOHEXOL 350 MG/ML 10 ML VIAL (for RAD DIAG) IVCONTRAST ONE (12:21)
[2017-03-11] MEDS ORDERED: PIPERACIL-TAZO 3.375 GM PREMIX 50 ML IV ONE (12:45)
--- NOTE | 2017-03-11 14:05 | RADRPT ---
EXAM DATE/TIME: 03/11/2017 12:12 [facility] COMPARISON: CHEST SINGLE AP, November 20, 2016, 12:02. INDICATIONS : Left chest pain, shortness of breath IV CONTRAST: 99 cc Omnipaque 350 (iohexol) IV ORAL CONTRAST: No oral contrast ingested. RADIATION DOSE: 12.23 CTDIvol (mGy) MEDICAL HISTORY : Seizures. Congestive heart failure. Hypertension. SURGICAL HISTORY : None. ENCOUNTER: Initial ACUITY: 1 day PAIN SCALE: 7/10 LOCATION: Abdomen TECHNIQUE: Volumetric scanning of the abdomen and pelvis was performed. Using automated exposure control and ad justment of the mA and/or kV according to patient size, radiation dose was kept as low as reasonably achievable to obtain optimal diagnostic quality images. DICOM format image data is available electro nically for review and comparison. FINDINGS: Innumerable masses are noted throughout the liver with the largest noted centrally and measuring appr oximately 10 cm. The findings are consistent with primary or metastatic neoplasm until proven otherw ise. Marked intrahepatic biliary dilatation is noted particularly involving the left lobe. There is a mild pancreatic ductal dilatation. MRI and MRCP may be helpful for further evaluation of these fi ndings if clinically indicated. Ascites is noted throughout the abdomen and pelvis. There are low d ensity splenic lesions measuring 11 mm each which are indeterminate. The kidneys enhance briskly and demonstrate no evidence of mass or hydronephrosis. There is a left adrenal nodule measuring 2.7 x 1 .9 cm which is indeterminate. The right adrenal gland is unremarkable. The abdominal aorta is calci fied but is not aneurysmally dilated. The inferior vena cava is normal. There is no periaortic hemo rrhage nor mesenteric lymphadenopathy. There are multiple non-calcified pulmonary nodules within the visualized lung bases consistent with probable metastatic disease until proven otherwise. The large st nodule is noted within the left lower lobe and measures 2.3 cm. The urinary bladder is unremarkab le. The prostate gland is unremarkable. Degenerative changes are noted throughout the lumbar spine. CONCLUSION: 1. Extensive hepatic masses consistent with primary or metastatic neoplasm. 2. Multiple non-calcified pulmonary nodules with the largest located in the left lower lobe measuring 2.3 cm consistent with metastatic disease until proven otherwise. 3. Biliary ductal dilatation of indeterminate etiology. MRI of the abdomen with contrast and MRCP ma y be helpful for further evaluation if clinically indicated. 4. 11 mm splenic nodules which are indeterminate. 5. 2.7 x 1.9 cm left adrenal mass which is indeterminate. 6. Ascites. Aguila Solano MD on March 11, 2017 at 12:35 Board Certified Radiologist. This report was verified electronically.
--- NOTE | 2017-03-11 14:19 | EKG ---
Date Performed: 03/11/2017 Time Performed: 10:14:36 PTAGE: 66 years EKG: Sinus rhythm NONSPECIFIC ST & T-WAVE ABNORMALITY BORDERLINE ECG Compared to the PREVIOUS TRACING QRS voltage somewhat smaller, ST-T changes have improved PREVIOUS SHAHID N11/21/2016 00.15 DOCTOR: Al Tavares Interpretating Date/Time 03/11/2017 14:18:25
[2017-03-11] MEDS ORDERED: BISACODYL 10 MG SUPP RECTAL PRN (14:45)
[2017-03-11] MEDS ORDERED: SENNOSIDES 8.6 MG TAB PO PRN (14:45)
[2017-03-11] MEDS ORDERED: LACTULOSE SYRUP 20 GM/30 ML CUP PO PRN (14:45)
[2017-03-11] MEDS ORDERED: ONDANSETRON HCL 4 MG/2 ML VIAL IVP PRN (14:45)
[2017-03-11] MEDS ORDERED: NALOXONE HCL 0.4 MG/ML AMP IV PUSH PRN (14:45)
[2017-03-11] MEDS ORDERED: MAGNESIUM HYDROXIDE SUSP 30 ML CUP PO PRN (14:45)
--- NOTE | 2017-03-11 16:03 | HHI.HP ---
HPI Service [facility] Primary Care Physician Renzo Payne MD Admission Diagnosis Hyperbilirubinemia, Pancreatitis, Liver Masses Diagnoses: Travel History International Travel<30 Days: No Contact w/Intl Traveler <30 Da: No Traveled to Known Affected Are: No History of Present Illness Patient is a 66-year-old male with past medical history of severe nonischemic cardiomyopathy with an ejection fraction of 30-35% per echo in 2017, CHF, chronic deep venous insufficiency, multivalvular disease, hypertension presents to the emergency room with complaints of severe abdominal pain which started about 2 months ago. He states that his pain got worse today that he decided to come to the emergency room. He rates the pain a 7 out of 10 located diffusely but mainly points in the epigastric, and right upper quadrant area. Patient states that he has noticed swelling for the past 2 weeks in his legs and also in his abdomen. He noticed that his eyes are turning yellow. He also states he has the "runs "for the past month and a half. He hasn't seen his primary care doctor due to financial reasons. He also notes blood clots in his stools for the past 3 weeks. His urine is very dark however his stools that are very light in color. He also complains of chest pain on the left side around a 9 out of 10. He has no cough however he does have shortness of breath and he gets pain with inspiration. He was told by his cloth printing utility worker that he would need a pacemaker at that time he didn't decide on it and he thinks he would like to discuss this with his cloth printing utility worker. Currently, pain seems to be improving. He denies any nausea or vomiting. He denies any sore throat or runny nose. Pt admits to loosing 15 lbs in the past 2 months. Review of Systems Except as stated in HPI: all other systems reviewed are Neg Past Family Social History Past Medical History Hypertension "a weak heart" Per records 1. Severe nonischemic cardiomyopathy with ejection fraction of 20% to 25% by his last echo in 2012. In September of 2009, he underwent cardiac catheterization showing normal coronary arteries with ejection fraction of 20% to 25%. and then ECHO in 2017 showed EF 30-35%. 2. Congestive heart failure exacerbation December of 2012. 3. Chronic deep venous insufficiency. 4. 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 Past Surgical History No history of surgeries Reported Medications Reported Meds & Active Scripts Active Reported Flomax (Tamsulosin HCl) 0.4 Mg Cap 0.4 Mg PO HS Spironolactone 25 Mg Tab 25 Mg PO BIDPC Metoprolol Tartrate 50 Mg Tab 50 Mg PO BID Furosemide 40 Mg Tab 40 Mg PO DAILY Enalapril (Enalapril Maleate) 2.5 Mg Tab 2.5 Mg PO BID Digoxin 0.125 Mg Tab 0.125 Mg PO DAILY Aspirin DR (Aspirin) 81 Mg Tabdr 81 Mg PO DAILY Allergies: Coded Allergies: No Known Allergies (Verified , 11/20/16) Family History Mother from natural causes Father of an CO Sister has hypertension Social History Smokes every "here and there" x 30 years but per records he used to smoke heavily and started as a teenager Drinks 1-2 beers every few days per record but tells me that he drinks now a can of beer a month. Denies drug use or illegal prescription drug use Physical Exam Vital Signs Vital Signs Date Time Temp Pulse Resp B/P (MAP) Pulse Ox O2 Delivery O2 Flow Rate FiO2 03/11/17 15:50 03/11/17 10:01 98.5 88 20 160/75 (103) 100 Room Air Physical Exam GENERAL: cachectic male, laying in bed, very pleasant SKIN: no obvious rashes but venous stasis noted in lower extremities. Cool and dry. HEAD: Atraumatic. Normocephalic. No temporal or scalp tenderness. EYES: Pupils equal round and reactive. Extraocular motions intact. scleral icterus noted. No injection or drainage. ENT: Nose without drainage. Mucous membranes are dry. Throat without erythema, tonsillar hypertrophy or exudate. Uvula midline. Airway patent. NECK: Trachea midline. No cervical lymphadenopathy. Supple, nontender, no meningeal signs. CARDIOVASCULAR: Regular rate and rhythm RESPIRATORY: Clear to auscultation. Breath sounds equal bilaterally. No wheezes GASTROINTESTINAL: Abdomen soft, distended tender to palpation throughout however difficult to assess for organomegaly due to distension and discomfort. some voluntary guarding but no rebound. ?ascites MUSCULOSKELETAL: Extremities pitting 1+ edema especially at the feet and ankles left greater than right. Calf tenderness on the left. ? Homans sign left NEUROLOGICAL: Awake and alert. Cranial nerves II through XII intact. Motor and sensory grossly within normal limits. Five out of 5 muscle strength in all muscle groups. Normal speech. Laboratory Laboratory Tests Test 03/11/17 10:35 White Blood Count 20.7 Red Blood Count 2.76 Hemoglobin 8.7 Hematocrit 25.6 Mean Corpuscular Volume 92.9 Mean Corpuscular Hemoglobin 31.7 Mean Corpuscular Hemoglobin Concent 34.1 Red Cell Distribution Width 20.5 Platelet Count 478 Mean Platelet Volume 9.3 CBC Comment AUTO DIFF Differential Total Cells Counted 100 Neutrophils % (Manual) 88 Band Neutrophils % 1 Lymphocytes % 4 Monocytes % 7 Neutrophils # (Manual) 18.4 Differential Comment FINAL DIFF MANUAL Platelet Estimate HIGH Platelet Morphology Comment NORMAL Target Cells 2+ Prothrombin Time 12.8 Prothromb Time International Ratio 1.2 Activated Partial Thromboplast Time 28.0 Blood Urea Nitrogen 21 Creatinine 1.05 Random Glucose 115 Total Protein 6.3 Albumin 1.9 Calcium Level 8.4 Alkaline Phosphatase 640 Aspartate Amino Transf (AST/SGOT) 199 Alanine Aminotransferase (ALT/SGPT) 88 Total Bilirubin 22.2 Sodium Level 133 Potassium Level 3.5 Chloride Level 101 Carbon Dioxide Level 21.0 Anion Gap 11 Estimat Glomerular Filtration Rate 86 Troponin I LESS THAN 0.02 B-Type Natriuretic Peptide 59 Lipase 1151 Result Diagram: 03/11/17 1035 03/11/17 1035 Imaging Last Impressions Abdomen/Pelvis CT 03/11/17 1033 Signed Impressions: Service Date/Time: February 12:12 - CONCLUSION: 1. Extensive hepatic masses consistent with primary or metastatic neoplasm. 2. Multiple non-calcified pulmonary nodules with the largest located in the left lower lobe measuring 2.3 cm consistent with metastatic disease until proven otherwise. 3. Biliary ductal dilatation of indeterminate etiology. MRI of the abdomen with contrast and MRCP may be helpful for further evaluation if clinically indicated. 4. 11 mm splenic nodules which are indeterminate. 5. 2.7 x 1.9 cm left adrenal mass which is indeterminate. 6. Ascites. Aguila Solano MD Chest X-Ray 03/11/17 0000 Signed Impressions: Service Date/Time: February 10:49 - CONCLUSION: Normal examination. MD Mahendra Roberts VTE Risk Assessment Caprinpamella VTE Risk Assessment: Mod/High Risk (score >= 2) Caprini Risk Assessment Model Point Value = 1 Point Value = 2 Point Value = 3 Point Value = 5 Age 41-60 Minor surgery BMI > 25 kg/m2 Swollen legs Varicose veins or History of unexplained or recurrent spontaneous Oral contraceptives or hormone replacement Sepsis (< 1 month) Serious lung disease, including pneumonia (< 1 month) Abnormal pulmonary function Acute myocardial infarction Congestive heart failure (< 1 month) History of inflammatory bowel disease Medical patient at bed rest Age 61-74 Arthroscopic surgery Major open surgery (> 45 min) Laparoscopic surgery (> 45 min) Malignancy Confined to bed (> 72 hours) Immobilizing plaster cast Central venous access Age >= 75 History of VTE Family history of VTE Factor V Leiden Prothrombin [id number] Lupus anticoagulant Anticardiolipin antibodies Elevated serum homocysteine Heparin-induced thrombocytopenia Other congenital or acquired thrombophilia Stroke (< 1 month) Elective arthroplasty Hip, pelvis, or leg fracture Acute spinal cord injury (< 1 month) Prophylaxis Regimen Total Risk Factor Score Risk Level Prophylaxis Regimen 0-1 Low Early ambulation 2 Moderate Order ONE of the following: *Sequential Compression Device (SCD) *Heparin 5000 units SQ BID 3-4 Higher Order ONE of the following medications: *Heparin 5000 units SQ TID *Enoxaparin/Lovenox 40 mg SQ daily (WT < 150 kg, CrCl > 30 mL/min) *Enoxaparin/Lovenox 30 mg SQ daily (WT < 150 kg, CrCl > 10-29 mL/min) *Enoxaparin/Lovenox 30 mg SQ BID (WT < 150 kg, CrCl > 30 mL/min) AND/OR *Sequential Compression Device (SCD) 5 or more Highest Order ONE of the following medications: *Heparin 5000 units SQ TID (Preferred with Epidurals) *Enoxaparin/Lovenox 40 mg SQ daily (WT < 150 kg, CrCl > 30 mL/min) *Enoxaparin/Lovenox 30 mg SQ daily (WT < 150 kg, CrCl > 10-29 mL/min) *Enoxaparin/Lovenox 30 mg SQ BID (WT < 150 kg, CrCl > 30 mL/min) AND *Sequential Compression Device (SCD) Assessment and Plan Assessment and Plan Jaundice/liver masses/weight loss/abdominal pain/hyperbilirubinemia/ascites: CT abdomen shows extensive hepatic masses consistent with primary or metastatic neoplasm. Multiple noncalcified pulmonary nodules with the largest located in the left lower lobe measuring 2.3 cm consistent with metastatic disease. Biliary ductal dilatation of indeterminate etiology. 11 mm splenic nodules which are indeterminate. 2.7 x 1.9 cm left adrenal mass which is indeterminate. Ascites. I will order paracentesis w fluid studies. GI has already been consulted by ER attending. Will consult oncology as well. will order CEA, AFP, CA19-9. Patient presented with leukocytosis of 20.7 and a platelet count of 478. T bili of 22.2, AST 199, ALT 88. Alkaline phosphatase 640. Patient receive a dose of Zosyn in the emergency room. We'll continue IV Zosyn and add Flagyl by mouth. MRCP ordered by ED physician. Anemia: 8.7. Patient admits to blood clots in his stools. We'll hold aspirin for now. Monitor hemoglobin closely. Transfuse if less than 7.0. GI following. Chest pain: Troponin 0.02. We will get serial cardiac enzymes. EKG reviewed, I did not note any ST elevation or depression. atrial enlargement is noted on EKG. If troponin become positive will consult cardiology. blood clots per rectum: GI following. Hold ASA or any anticoagulation for now. Pancreatitis: Lipase level up to 1151. We'll hold off on giving IV fluids as patient already complaining of shortness of breath and has an EF of 30-35% Hypertension: Patient's home medications have been resumed. including lasix/ spironolactone/enalapril/metoprolol systolic CHF: Chest x-ray didn't show any pulm edema, BNP wnl. Suspect SOB is from ascites and increase abdominal girth. monitor. on lasix, digoxin, metoprolol and enalapril. DVT Proph: SCD. Avoid chemical anticoagulation due to anemia and pt passing blood clots. Code Status full Discussed Condition With ER physician and patient. Alejandra Pool MD Mar 11, 2017 16:03
[2017-03-11 16:30] VITALS: BP 135/65; PULSE 87; RESP 20; TEMP 98; O2SAT 100
--- NOTE | 2017-03-11 17:16 | HHI.GIFU ---
Subjective Remarks This is a very pleasant 66 yo male with hx CHF, HTN who presented with abd pain , blood in stool, and abd distention. A month ago he began having abd distention and pain, dark urine. The pain is in the umbilical region, he indicates. For the last week has has been having dark blood and clots in his stool, as well as very pale greyish stools. No prior hx liver problems, pancreas problems or gallbladder problems. Never had EGD or colonoscopy. CT showed estrahepatic masses c/w primary or metatstic neoplasm, pumonary nodules c /w mets until proven otherwise, biliary ductal dilatation of indeterminate etiology, splenic nodules, ascites. His LFTs are elevated, as is lipase 1151. Not on blood thinners. (Shira Skinner) Objective Vitals I&O Vital Signs Date Time Temp Pulse Resp B/P (MAP) Pulse Ox O2 Delivery O2 Flow Rate FiO2 03/11/17 15:50 03/11/17 10:01 98.5 88 20 160/75 (103) 100 Room Air Laboratory Laboratory Tests Test 03/11/17 10:35 White Blood Count 20.7 Red Blood Count 2.76 Hemoglobin 8.7 Hematocrit 25.6 Mean Corpuscular Volume 92.9 Mean Corpuscular Hemoglobin 31.7 Mean Corpuscular Hemoglobin Concent 34.1 Red Cell Distribution Width 20.5 Platelet Count 478 Mean Platelet Volume 9.3 CBC Comment AUTO DIFF Differential Total Cells Counted 100 Neutrophils % (Manual) 88 Band Neutrophils % 1 Lymphocytes % 4 Monocytes % 7 Neutrophils # (Manual) 18.4 Differential Comment FINAL DIFF MANUAL Platelet Estimate HIGH Platelet Morphology Comment NORMAL Target Cells 2+ Prothrombin Time 12.8 Prothromb Time International Ratio 1.2 Activated Partial Thromboplast Time 28.0 Blood Urea Nitrogen 21 Creatinine 1.05 Random Glucose 115 Total Protein 6.3 Albumin 1.9 Calcium Level 8.4 Alkaline Phosphatase 640 Aspartate Amino Transf (AST/SGOT) 199 Alanine Aminotransferase (ALT/SGPT) 88 Total Bilirubin 22.2 Sodium Level 133 Potassium Level 3.5 Chloride Level 101 Carbon Dioxide Level 21.0 Anion Gap 11 Estimat Glomerular Filtration Rate 86 Troponin I LESS THAN 0.02 B-Type Natriuretic Peptide 59 Lipase 1151 Imaging Last Impressions Abdomen/Pelvis CT 03/11/17 1033 Signed Impressions: Service Date/Time: February 12:12 - CONCLUSION: 1. Extensive hepatic masses consistent with primary or metastatic neoplasm. 2. Multiple non-calcified pulmonary nodules with the largest located in the left lower lobe measuring 2.3 cm consistent with metastatic disease until proven otherwise. 3. Biliary ductal dilatation of indeterminate etiology. MRI of the abdomen with contrast and MRCP may be helpful for further evaluation if clinically indicated. 4. 11 mm splenic nodules which are indeterminate. 5. 2.7 x 1.9 cm left adrenal mass which is indeterminate. 6. Ascites. Aguila Solano MD Chest X-Ray 03/11/17 0000 Signed Impressions: Service Date/Time: February 10:49 - CONCLUSION: Normal examination. José Miguel Martinez MD Physical Exam HEENT: PERRL; normocephalic; atraumatic; + icterus CHEST: CTA CARDIAC: RRR ABDOMEN: semifirm, distended, dull, diffuse TTP; no hepatosplenomegaly; bowel sounds are present in all four quadrants. EXTREMITIES: No clubbing, cyanosis, + edema BLE SKIN: Normal; no rash; + jaundice. 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 (Shira Skinner) Assessment and Plan Plan ASSESSMENT - abd pain, distention - CT showing extrahepatic masses c/w primary or metatstic neoplasm, pumonary nodules c/w mets until proven otherwise, biliary ductal dilatation of indeterminate etiology, splenic nodules, ascites. paracentesis pending - elevated LFTs, jaundice - Tbil 22.2, AST 199, ALT 88, ALP 640 on admission. - elevated lipase - 1151 on admission MRCP pending - anemia - hgb 8.7 on admission, down from 10.6 on 11/20/16 - hematochezia - pt reports dark blood and clots in stool over last week PLAN - await MRCP - await paracentesis - possible ERCP tomorrow - obtain consent - NPO after midnight - clear liquid diet - CEA, AFP, CA 19-9 - monitor labs - supportive care - further recs to follow This pt seen by myself and Dr Freeman and this note is written on her behalf (Shira Skinner) Physician Comments seen examined agree with above reviewed MRCP=ERCP will not be helpful at this point Discussed with oncology -agree with CT guided lover biopsy first if any signs of cholangitis we will consider ERCP poor prognosis (Elen Freeman MD) Shira Skinner Mar 11, 2017 17:16 Elen Freeman MD Mar 11, 2017 19:36
[2017-03-11] MEDS ORDERED: GADODIAMIDE PF 287 MG/ML 5 ML VIAL (for RAD MRI) IVCONTRAST ONE (19:05)
--- NOTE | 2017-03-11 19:16 | RADRPT ---
EXAM DATE/TIME: 03/11/2017 18:17 [facility] COMPARISON: CT ABDOMEN & PELVIS W CONTRAST, March 11, 2017, 12:12. INDICATIONS : Mass. CONTRAST: 15 cc Omniscan (gadodiamide) IV MEDICAL HISTORY : Hypertension. Congestive heart failure. Seizures. SURGICAL HISTORY : None. ENCOUNTER: Initial ACUITY: 1 day PAIN SCORE: 4/10 LOCATION: Abdomen. TECHNIQUE: Multiplanar, multisequence magnetic resonance imaging of the abdomen was performed. High-resolution 3D dataset was utilized to reconstruct maximum-intensity projection (MIP) images. FINDINGS: There is intrahepatic biliary distention, especially the left lobe of the liver. The hepatic duct and common bile duct are nondistended. The gallbladder is contracted. Too numerous to count metastatic l esions are seen in the liver and I believe the left ductal dilatation is probably from associated mas s effect. No filling defect is demonstrated. Pancreatic duct is normal. CONCLUSION: Extensive metastatic disease of the liver and I believe the left lobe intrahepatic ductal dilatation is due to associated mass effect. No intraductal stone or definite tumor demonstrated. Gallbladder an d common bile duct are nondistended. Weston Maya MD on March 11, 2017 at 19:12 Board Certified Radiologist. This report was verified electronically.
[2017-03-11 20:01] VITALS: BP 135/73; PULSE 84; RESP 19; TEMP 96.4; O2SAT 99
[2017-03-11] MEDS: ENALAPRIL MALEATE 2.5 MG TAB PO SCH (21:00)
[2017-03-11] MEDS: DOCUSATE SODIUM 50 MG/SENNA 8.6 MG TAB PO SCH (21:00)
[2017-03-11] MEDS: metroNIDAZOLE 500 MG TAB PO SCH (21:32)
[2017-03-11] MEDS: METOPROLOL TARTRATE 50 MG TAB PO SCH (21:32)
[2017-03-11] MEDS: PIPERACIL-TAZO 3.375 GM PREMIX 50 ML IV SCH (21:33)
[2017-03-11] MEDS: SPIRONOLACTONE 25 MG TAB PO SCH (21:33)
[2017-03-11] MEDS: SODIUM CHLORIDE 0.9% FLUSH 10 ML FLUSH IV FLUSH SCH (21:33)
[2017-03-11] MEDS: SODIUM CHLOR 0.9% 1000 ML INJ 1,000 ML IV SCH (21:34)
[2017-03-11] MEDS: ACETAMINOPHEN/HYDROcodone 325 MG/5 MG TAB PO PRN (21:56)
[2017-03-11] MEDS: TAMSULOSIN HCL 0.4 MG CAP PO SCH (21:56)
--- NOTE | 2017-03-11 22:03 | RADRPT ---
EXAM DATE/TIME: 03/11/2017 19:37 [facility] COMPARISON: No previous studies available for comparison. INDICATIONS : Bilateral leg swelling. MEDICAL HISTORY : Cerebrovascular disease. Hypercholesterolemia. Congestive heart failure. Hypertension. Seizures. S yncope. Incontinence. Paresthesia. Measles. Anticoagulant therapy, Aspirin 81mg. SURGICAL HISTORY : None. ENCOUNTER: Initial ACUITY: 3 weeks PAIN SCORE: 7/10 LOCATION: Bilateral legs. TECHNIQUE: Venous ultrasound of the left and right leg was performed from the inguinal ligament to the proximal calf. Real-time, color Doppler and spectral tracing, compression and augmentation techniques were us ed. FINDINGS: RIGHT LEG: There is normal compressibility of the deep venous system from the inguinal region to the proximal ca lf. No echogenic clot is seen in the lumen of the common femoral, femoral, popliteal, and posterior tibial veins. There is a normal response of the venous system to proximal and distal augmentation an d respiration. LEFT LEG: There is normal compressibility of the deep venous system from the inguinal region to the proximal ca lf. No echogenic clot is seen in the lumen of the common femoral, femoral, popliteal, and posterior tibial veins. There is a normal response of the venous system to proximal and distal augmentation an d respiration. CONCLUSION: No DVT. Weston Maya MD on March 11, 2017 at 22:02 Board Certified Radiologist. This report was verified electronically.
[2017-03-11 22:29] LABS: CREATINE KINASE 168 U/L (39-308)
[2017-03-12] VITALS (10 sets, daily range): BP systolic 99–133; BP diastolic 45–69; PULSE 61–86; RESP 16–20; TEMP 96.1–97.8; O2SAT 98–100
[2017-03-12] MEDS: PIPERACIL-TAZO 3.375 GM PREMIX 50 ML IV SCH ×4 (04:20→21:09)
[2017-03-12] MEDS: metroNIDAZOLE 500 MG TAB PO SCH ×3 (04:21→17:56)
[2017-03-12] MEDS: SODIUM CHLOR 0.9% 1000 ML INJ 1,000 ML IV SCH (04:22)
[2017-03-12 07:18] LABS: HEMATOCRIT 24.7 % (39.0-51.0); MEAN CELL VOLUME 94.4 FL (80.0-100.0); MEAN CORPUSCULAR HEMOGLOBIN 32.5 PG (27.0-34.0); MEAN CORPUSCULAR HGB CONC 34.4 % (32.0-36.0); PLATELET COUNT 418 TH/MM3 (150-450); RED BLOOD COUNT 2.62 MIL/MM3 (4.50-5.90); RED CELL DISTRIBUTION WIDTH 20.6 % (11.6-17.2); WHITE BLOOD COUNT 17.2 TH/MM3 (4.0-11.0)
[2017-03-12 07:38] LABS: ALT (GPT) 76 U/L (12-78)
[2017-03-12 07:50] LABS: ALKALINE PHOSPHATASE 553 U/L (45-117); ANION GAP 12 MEQ/L (5-15); AST (GOT) 175 U/L (15-37); BLOOD UREA NITROGEN 17 MG/DL (7-18); CHLORIDE 100 MEQ/L (98-107); GLOMERULAR FILTRATION RATE 112 ML/MIN (>89); POTASSIUM 3.1 MEQ/L (3.5-5.1); SODIUM (NA) 133 MEQ/L (136-145)
[2017-03-12 07:54] LABS: TOTAL BILIRUBIN ADULT 19.6 MG/DL (0.2-1.0)
[2017-03-12 07:59] LABS: HEMO FLAGS AUTO DIFF
[2017-03-12] MEDS: FUROSEMIDE 40 MG TAB PO SCH (08:20)
[2017-03-12] MEDS: DOCUSATE SODIUM 50 MG/SENNA 8.6 MG TAB PO SCH ×2 (08:20→21:00)
[2017-03-12] MEDS: DIGOXIN 0.125 MG TAB PO SCH (08:20)
[2017-03-12] MEDS: SPIRONOLACTONE 25 MG TAB PO SCH ×2 (08:23→17:56)
[2017-03-12] MEDS: ENALAPRIL MALEATE 2.5 MG TAB PO SCH ×2 (08:23→21:08)
[2017-03-12] MEDS: SODIUM CHLORIDE 0.9% FLUSH 10 ML FLUSH IV FLUSH SCH ×2 (08:24→21:09)
[2017-03-12] MEDS: METOPROLOL TARTRATE 50 MG TAB PO SCH ×2 (08:24→21:08)
[2017-03-12 08:44] LABS: BANDS 2 % (0-6); MYELOCYTES 1 % (0-0); NEUTROPHIL # MANUAL DIFF 15.8 TH/MM3 (1.8-7.7); POLYS (SEG NEUTROPHILS) 89 % (16-70); WBC DIFF SAMPLE 100
[2017-03-12 08:45] LABS: PLATELET ESTIMATE SMEAR NORMAL (NORMAL); SCAN/DIFF FINAL DIFF MANUAL; TARGET CELLS 2+ (NORMAL)
[2017-03-12 08:46] LABS: PLATELET MORPHOLOGY ENLARGED (NORMAL)
--- NOTE | 2017-03-12 09:58 | MB ---
cc: RAMA GRAVES MD DATE OF CONSULTATION: 03/11/2017 DATE OF : 1950 REQUESTING PHYSICIAN: Hospitalist service. REASON FOR CONSULTATION: Extensive masses involving the liver concerning for metastatic versus primary hepatobiliary malignancy. The patient is currently in a visceral crisis with hyperbilirubinemia and elevated liver enzymes. CHIEF COMPLAINT: 1. Several week history of worsening appetite, abdominal pain and distention. 2. Three week history of blood clots in the stool. 3. The patient also reports discoloration of the eyes; increasingly yellow as well as darkening of the urine over the past week and a half. HISTORY OF PRESENT ILLNESS: Mr. Nolasco is a very pleasant 66 year old man who is a [place]. 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 He is single, he has no children of his own. His bother and sister live close by and they are his main social support. Mr. Nolasco reports being in his usual state of health up until several weeks ago when he began to notice worsening appetite and abdominal pain and distention. He points towards his epigastric and right upper quadrant area as the focal areas of the painful stuff. He then began to notice blood in his stool. He describes large blood clots in his stool which have been on and off over the past three weeks. Additionally, he began to notice discoloration of his eyes as well as his urine. Over the past few weeks. He came into the hospital for further work up and evaluation. Mr. Nolasco underwent work up and was noted to have anemia, associated with elevated platelet count. He was also noted to have hyperbilirubinemia with a bilirubin level of 22 associated with elevated aspartate aminotransferase, ALT and alkaline phosphatase levels. His albumin was diminished and his lipase level was elevated. Imaging studies of the abdomen indicated extensive hepatic masses, concerning for metastatic neoplasm versus primary neoplasm versus primary neoplasms. He also has pulmonary nodules noted within the lungs in the visualized lower lobes of the right and left lung. The oncology service has been asked to see Mr. Nolasco for further work up and management. PAST MEDICAL HISTORY: 1. Ischemic cardiomyopathy. 2. Hypertension. 3. Personal history of tobaccoism. 4. History of lower extremity deep venous thrombosis. 5. Valvular heart disease. PAST SURGICAL HISTORY: No known surgeries. FAMILY HISTORY: Sister of metastatic cancer, he does not know what type. Father of a heart attack. Mother of natural causes in her 60s. SOCIAL HISTORY: The patient lives in [place], [place]. He tells me he was born at [facility], grew up in [facility] and then moved to [place]. He was at one point but has been and single for many years. He has no kids of his own. He previously was a heavy smoker, but never was a heavy drinker. He denies illicit drug use. ALLERGIES NO KNOWN DRUG ALLERGIES. MEDICATIONS: Current inpatient medications; 1. Zosyn 2.375 grams IV q six hours. 2. Normal saline 75 cc per hour. 3. Hydrocodone/Tylenol 5/325 one tablet every four hours as needed for pain. 4. Digoxin 0.135 mg daily. 5. Enalapril 2.5 mg p.o. twice a day. 6. Lasix 40 mg p.o. daily. 7. Lactulose 30 ml's p.o. daily. 8. Metoprolol 50 mg p.o. twice a day. 9. Metoprolol 50 mg twice a day. 10. Metronidazole 500 mg q six hours. 11. Spironolactone 25 mg p.o. twice a day. 12. Tamsulosin 0.4 mg p.o. q hs. REVIEW OF SYSTEMS 13-point review of systems were obtained the following her positives: The patient reports fatigue, weakness, loss of appetite. He reports unintended weight loss of 15 pounds of the past several weeks. HEENT: Denies headaches, blurry vision, difficulty swallowing or sore throat. He reports yellow color or discoloration of eyes. RESPIRATORY: Difficulty breathing, denies cough or hemoptysis. Denies pleuritic chest pain. CARDIOVASCULAR SYSTEM: denies angina-like chest pain, PND, orthopnea. GI: Denies nausea, denies vomiting, reports abdominal distension reports blood clots and blood in the stool. ABDOMEN: He reports abdominal pain and distension. : Reports urine has been dark and almost brown color. He denies bleeding in the urine. 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 MUSCULOSKELETAL: Reports muscle mass loss and weakness. PHYSICAL EXAMINATION VITAL SIGNS: Temperature 98.5 degrees Fahrenheit, heart rate 88 beats minute, respiratory rate 20, blood pressure 160/75, O2 sats 100% on room air. GENERAL APPEARANCE: Mr. Nolasco is an elderly male, he appears to be cachectic and chronically ill. He has a very pleasant disposition. HEAD, EYES, EARS, NOSE, AND THROAT: Head atraumatic, normocephalic, conjunctive a are pale sclerae are deeply icteric, EOMI, PERRLA, oral exam icteric. Mucous membranes, dry mucous membranes. NECK: Neck exam no palpable cervical or supraclavicular adenopathy. LUNGS: Respiratory exam; Good air movement bilaterally without any added breath sounds. CARDIOVASCULAR SYSTEM: Regular rate and rhythm, S1-S2 without any on his murmurs, gallops. He has good peripheral pulses. ABDOMEN: Abdominal exam; Belly is thin, it is distended, there is right upper quadrant tenderness, the liver is enlarged and is palpable 4 cm below the right and costal margin as well as the epigastric area. He has positive bowel sounds. There is free fluid in the abdomen noted. EXTREMITIES: Lower extremities: Bilateral pretibial edema. No calf tenderness. CENTRAL NERVOUS SYSTEM: No focal sensory motor deficits. LABORATORY FINDINGS Blood work dated 03/11/2017: PT 12.8, INR 1.2, PTT 28. CBC dated 03/11/2017: WBC count 20.7, hemoglobin 8.7 gm/dl, hematocrit 25.6%, MCV 93, platelet count 478. Absolute neutrophil count 18.4. Target cells are present. Chemistries: Sodium 133, potassium 3.5, chloride 101, bicarb 21, BUN 11, creatinine 1.05, random glucose was 01/05, calcium 8.4, total bilirubin 22. AST 199, ALT 88, alkaline phosphatase 640. Albumin 1.9. Total protein 6.3. Lipase level 115. IMAGING STUDIES 1. CT scan of the abdomen and pelvis dated 03/11/2017 indicates extensive hepatic masses concerning / consistent with primary / metastatic neoplasm. 2. Multiple noncalcified pulmonary nodules with the largest located in the left lower lobe measuring 2.3 cm consistent with metastatic disease until proven otherwise. 3. Biliary ductal dilatation of intermediate etiology. MRI abdomen with contrast and MRCP may be helpful to further evaluate. 4. Splenic nodules noted. 2.7 x 1.7 cm left adrenal masses also noted. Ascites is appreciated. ASSESSMENT: Mr. Nolasco is a very pleasant 66-year-old male who presents to the hospital with progressive abdominal pain and distension as well as jaundice. Imaging studies confirmed the presence of extensive and diffusely present masses in all quadrants and segments of the liver. There is intrahepatic biliary ductal dilatation and pulmonary nodules noted on imaging studies. His total bilirubin level is 22, his alkaline phosphatase, AST and ALT levels are all elevated. These findings are most consistent with a malignancy which is heavily involving the liver and is quite frankly causing a visceral crisis. The patient does report having a several week history of blood clots in the stool, he also reports abdominal distension pain and yellow jaundice. Significant medical comorbid conditions include ischemic cardiomyopathy with an LVEF ranging between 25 and 35%. He also has recent physical debility. RECOMMENDATIONS 1. Visceral crisis secondary to heavily involved the liver with metastatic / primary neoplasm: I would like the patient to undergo image guided biopsy of one of the hepatic lesions. He may be candidate for ERCP versus percutaneous drainage of the bile ducts to manage his hyperbilirubinemia. If colonoscopy may also be indicated given his history of hematochezia. Given his history and imaging study findings. 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 Unfortunately his treatment options will depend on the primary. Unfortunately given the extent of liver involvement as well as his underlying medical comorbid conditions, Mr. Nolasco appears to be a suboptimal candidate for aggressive palliative systemic chemotherapy. He may be an appropriate candidate for palliation. I did try to broach this topic gently with the patient but he tells me that he would like to first find out with diagnosis is which is very reasonable and secondly would want to pursue treatment options the best he can to prolong his survival. Hematology will follow along closely with you. MD EUGENIO Downing/lisa /7:15 PM /9:26 AM
[2017-03-12] MEDS ORDERED: LIDOCAINE HCL 1% 20 ML VIAL ONE (10:03)
--- NOTE | 2017-03-12 10:19 | RADRPT ---
EXAM DATE/TIME: 03/12/2017 09:16 [facility] COMPARISON: No previous studies available for comparison. INDICATIONS : Ascites. MEDICAL HISTORY : Congestive heart failure. Hypercholesterolemia. Cataracts. Seizures. Hypertension. Dyspnea. Liver ma ss. SURGICAL HISTORY : None. ENCOUNTER: Initial ACUITY: 1 day PAIN SCORE: 8/10 LOCATION: Right lower quadrant FLUID: Total volume of 3,200 cc of clear, yellowish green fluid was removed. Fluid was sent to lab for ordered studies. Post procedure scanning reveals no hematoma or other complication. TECHNIQUE: 1. Ultrasound guidance for abdominal paracentesis. 2. Paracentesis. The risks, benefits, and alternatives to ultrasound guided paracentesis were explained to the patient in detail including the risk of bleeding and infection. Written and verbal informed consent was obt ained. With the patient on the ultrasound table, ultrasound imaging was used to select the most appropriate approach for paracentesis. Overlying skin was prepped and draped in the usual sterile fashion and wi th a local anesthetic, a dermatotomy was made with an 11 blade scalpel. A [id number] ca theter was introduced into the peritoneal cavity and fluid was collected. The patient tolerated the procedure well and left the ultrasound suite in stable condition. CONCLUSION: Uncomplicated ultrasound guided paracentesis. Aguila Solano MD on March 12, 2017 at 10:17 Board Certified Radiologist. This report was verified electronically.
[2017-03-12] MEDS ORDERED: MIDAZOLAM HCL 5 MG/5 ML VIAL ONE (10:21)
--- NOTE | 2017-03-12 11:43 | EKG ---
Date Performed: 03/11/2017 Time Performed: 22:13:31 PTAGE: 66 years EKG: Sinus rhythm MODERATE INTRAVENTRICULAR CONDUCTION DELAY NONSPECIFIC ST & T-WAVE ABNORMALITY BORDERLINE ECG Compar ed to prior tracing no significant change PREVIOUS TRACING : 03/11/2017 10.14 DOCTOR: Guilherme Gao Interpretating Date/Time 03/12/2017 11:40:33
[2017-03-12 11:58] LABS: PERITONEAL EOS 1 %; PERITONEAL HISTIOCYTES 17 %; PERITONEAL LYMPHS 56 %; PERITONEAL MESOTHELIAL 1 %; PERITONEAL MONOS 5 %; PERITONEAL POLYS(SEGS) 20 %; PERITONEAL WBC 100 /MM3 (0-10)
--- NOTE | 2017-03-12 12:06 | RADRPT ---
EXAM DATE/TIME: 03/12/2017 10:46 [facility] COMPARISON: No previous studies available for comparison. INDICATIONS : Multiple liver masses. SEDATION TIME: 15 minutes BIOPSY SITE: liver MEDICATION(S): 1.) 1 mg midazolam (Versed) IV 2.) 50 mcg fentanyl (Sublimaze) IV DEVICE(S): 1.) 18 gauge Temno core biopsy needle 9cm MEDICAL HISTORY : Hypertension. Liver masses SURGICAL HISTORY : None. ENCOUNTER: Initial ACUITY: 1 day PAIN SCORE: 0/10 LOCATION: Right lateral A total of one core specimen(s) were obtained and sent to the laboratory for pathologic evaluation. PROCEDURE: 1. CT guided liver biopsy. 2. Conscious sedation with continuous EKG and oximetry monitoring. Prior to the procedure informed consent was obtained. Any appropriate prior imaging studies were rev iewed. Using automated exposure control and adjustment of the mA and/or kV according to patient size, radiat ion dose was kept as low as reasonably achievable to obtain optimal diagnostic quality images. DICOM format image data is available electronically for review and comparison. The site was prepped in a sterile fashion. Full sterile technique was used, including cap, mask, brenda rile gloves and gown and a large sterile sheet. Hand hygiene and 2% chlorhexidine and/or betadine/al cohol prep was utilized per protocol for cutaneous antisepsis. The skin and subcutaneous tissues wer e infiltrated with local anesthetic solution. With CT guidance the previously identified target was localized. Biopsy was performed using the presc ribed needle as above. Adequate hemostasis was obtained with compression at the puncture site. Follow-up CT scan reveals no hemorrhage. The patient tolerated the procedure well and there were no complications. The patient was returned to the Radiology Outpatient Unit in stable condition. CONCLUSION: Uncomplicated CT guided biopsy. Aguila Solano MD on March 12, 2017 at 12:04 Board Certified Radiologist. This report was verified electronically.
--- NOTE | 2017-03-12 16:59 | HHI.PR ---
Subjective Remarks Follow-up on patient with jaundice, liver masses, ascites. Patient seen and examined today. s/p paracentesis. Patient states he feels much better today after having the fluid drained off of his belly. s/p CT guided liver bx. He denies any complaints of fever or chills. States this chest pain is unchanged. Denies any shortness of breath. Denies any nausea or vomiting. Objective Vitals Vital Signs Date Time Temp Pulse Resp B/P (MAP) Pulse Ox O2 Delivery O2 Flow Rate FiO2 03/12/17 16:00 96.7 80 18 119/61 (80) 99 03/12/17 13:32 96.1 86 16 106/66 (79) 100 03/12/17 12:20 76 20 99/49 (66) 100 03/12/17 11:50 76 20 99/49 (66) 100 03/12/17 11:35 78 20 99/52 (68) 100 03/12/17 11:20 97.8 83 20 102/45 (64) 100 03/12/17 08:00 97.2 81 20 104/57 (73) 98 03/12/17 04:00 97.6 69 18 112/58 (76) 98 03/12/17 00:00 96.8 61 18 118/60 (79) 99 03/11/17 23:10 16 03/11/17 20:01 96.4 84 19 135/73 (93) 99 I/O 03/11/17 03/11/17 03/11/17 03/12/17 03/12/17 03/12/17 07:00 15:00 23:00 07:00 15:00 23:00 Intake Total 120 ml 0 ml 580 ml Output Total 100 ml 700 ml Balance 120 ml -100 ml -120 ml Intake Oral 120 ml 0 ml 480 ml IV Total 100 ml Output Urine Total 100 ml 700 ml # Voids 2 # Bowel Movements 0 1 Result Diagram: 03/12/17 0459 03/12/17 0459 Imaging Last Impressions Liver Biopsy CT 03/12/17 0757 Signed Impressions: Service Date/Time: Sunday, March 12, 2017 10:46 - CONCLUSION: Uncomplicated CT guided biopsy. Aguila Solano MD Cyst Biopsy Asp-Paracentesis US 03/12/17 0000 Signed Impressions: Service Date/Time: Sunday, March 12, 2017 09:16 - CONCLUSION: Uncomplicated ultrasound guided paracentesis. Aguila Solano MD Abdomen/Pelvis CT 03/11/17 1033 Signed Impressions: Service Date/Time: February 12:12 - CONCLUSION: 1. Extensive hepatic masses consistent with primary or metastatic neoplasm. 2. Multiple non-calcified pulmonary nodules with the largest located in the left lower lobe measuring 2.3 cm consistent with metastatic disease until proven otherwise. 3. Biliary ductal dilatation of indeterminate etiology. MRI of the abdomen with contrast and MRCP may be helpful for further evaluation if clinically indicated. 4. 11 mm splenic nodules which are indeterminate. 5. 2.7 x 1.9 cm left adrenal mass which is indeterminate. 6. Ascites. Aguila Solano MD Lower Extremity Ultrasound 03/11/17 0000 Signed Impressions: Service Date/Time: February 19:37 - CONCLUSION: No DVT. Weston Maya MD Cholangiopancreatography MRI 03/11/17 0000 Signed Impressions: Service Date/Time: February 18:17 - CONCLUSION: Extensive metastatic disease of the liver and I believe the left lobe intrahepatic ductal dilatation is due to associated mass effect. No intraductal stone or definite tumor demonstrated. Gallbladder and common bile duct are nondistended. Weston Maya MD Chest X-Ray 03/11/17 0000 Signed Impressions: Service Date/Time: February 10:49 - CONCLUSION: Normal examination. José Miguel Martinez MD Objective Remarks GENERAL: cachectic male, laying in bed, very pleasant. Awake and alert. Appears comfortable. SKIN: no obvious rashes but venous stasis noted in lower extremities. Cool and dry. HEAD: Atraumatic. Normocephalic. EYES: Extraocular motions intact. scleral icterus noted. No injection or drainage. ENT: Nose without drainage. Airway patent. NECK: Trachea midline. CARDIOVASCULAR: Regular rate and rhythm RESPIRATORY: Mild crackles noted in right base. No wheezes appreciated. GASTROINTESTINAL: Abdomen soft, distended but improved. Less tenderness to palpation. (+)Hepatomegaly. MUSCULOSKELETAL: Extremities pitting 1+ edema especially at the feet and ankles left greater than right. Calf tenderness on the left. NEUROLOGICAL: Awake and alert. Able to move all extremities. Normal speech. Medications and IVs Current Medications Medications (Trade) Dose Ordered Sig/Wilder Route Start Time Stop Time Status Last Admin Sodium Chloride 1,000 ml @ 75 mls/hr [id number] IV 03/11/17 15:00 03/12/17 04:22 (NS Flush) 2 ml UNSCH PRN IV FLUSH 03/11/17 14:45 (NS Flush) 2 ml BID IV FLUSH 03/11/17 21:00 03/11/17 21:33 (Zofran Inj) 4 mg Q6H PRN IVP 03/11/17 14:45 (Narcan Inj) 0.4 mg UNSCH PRN IV PUSH 03/11/17 14:45 (Oxana-Colace) 1 tab BID PO 03/11/17 21:00 03/12/17 08:20 (Milk Of Magnesia Liq) 30 ml Q12H PRN PO 03/11/17 14:45 (Senokot) 17.2 mg Q12H PRN PO 03/11/17 14:45 (Dulcolax Supp) 10 mg DAILY PRN RECTAL 03/11/17 14:45 (Lactulose Liq) 30 ml DAILY PRN PO 03/11/17 14:45 ([place] 5-325 Mg) 1 tab Q4H PRN PO 03/11/17 14:45 03/11/17 21:56 ([place] 7.5-325 Mg) 1 tab Q6H PRN PO 03/11/17 14:45 (Lanoxin) 0.125 mg DAILY PO 03/12/17 09:00 03/12/17 08:20 (Vasotec) 2.5 mg BID PO 03/11/17 21:00 (Lasix) 40 mg DAILY PO 03/12/17 09:00 03/12/17 08:20 (Lopressor) 50 mg BID PO 03/11/17 21:00 03/11/17 21:32 (Aldactone) 25 mg BIDPC PO 03/11/17 18:00 03/12/17 08:23 (Flomax) 0.4 mg HS PO 03/11/17 21:00 03/11/17 21:56 Piperacillin Sod/ Tazobactam Sod 50 ml @ 100 mls/hr Q6H IV 03/11/17 20:00 03/12/17 13:30 (Flagyl) 500 mg Q6HR PO 03/11/17 18:00 03/12/17 13:30 A/P Assessment and Plan Jaundice/liver masses/weight loss/abdominal pain/hyperbilirubinemia/ascites: - CT abdomen shows extensive hepatic masses consistent with primary or metastatic neoplasm. Multiple noncalcified pulmonary nodules with the largest located in the left lower lobe measuring 2.3 cm consistent with metastatic disease. Biliary ductal dilatation of indeterminate etiology. 11 mm splenic nodules which are indeterminate. 2.7 x 1.9 cm left adrenal mass which is indeterminate. - Ascites. s/p paracentesis. F/u on fluid studies - GI following, appreciate their assistance. If any signs of cholangitis, will consider ERCP. - MRCP shows extensive metastatic disease in the liver and likely the left lobe intrahepatic ductal dilatation due to associated mass effect. - Oncology following, appreciate their assistance - s/p CT guided liver biopsy. Follow up on results. - CEA elevated 8427, AFP 1.6, CA19-9 3.1. - Patient presented with leukocytosis of 20.7 and a platelet count of 478. T bili of 22.2, AST 199, ALT 88. Alkaline phosphatase 640. Patient receive a dose of Zosyn in the emergency room. We'll continue IV Zosyn and add Flagyl by mouth. Anemia: 8.7. Patient admits to blood clots in his stools. We'll hold aspirin for now. Monitor hemoglobin closely - slight trend downward. Transfuse if less than 7.0. GI following. Hypokalemia: Repletion given. Check mag level. Repeat potassium level in am. Chest pain: Troponin 0.02 x 2. EKG no ST elevation or depression. atrial enlargement is noted on EKG. Chest pain is unchanged. blood clots per rectum: GI following. Hold ASA or any anticoagulation for now. BLE edema: Doppler US negative for DVT. Pancreatitis: Lipase level up to 1151. We'll hold off on giving IV fluids as patient already complaining of shortness of breath and has an EF of 30-35% Hypertension: Patient's home medications have been resumed including lasix/ spironolactone/enalapril/metoprolol/digoxin systolic CHF: Chest x-ray didn't show any pulm edema, BNP wnl. Suspect SOB is from ascites and increase abdominal girth. monitor. on lasix, digoxin, metoprolol and enalapril. DVT Proph: SCD. Avoid chemical anticoagulation due to anemia and pt passing blood clots. Full code Discussed with patient and Dr. Pool Attending Statement The exam, history, and the medical decision-making described in the above note were completed with the assistance of the mid-level provider. I reviewed and agree with the findings presented. I attest that I had a [id number] encounter with the patient on the same day, and personally performed and documented my assessment and findings in the medical record. Pt feels better since paracentesis. He states that the pain "over my heart" is about the same. No nausea or vomiting. He is grateful for the care he is getting on exam, cachectic, smiling, HR rrr w no murmurs, lungs w faint crackles at the right base, abdomen still somewhat distended but less compared to yesterday, (+ ) hepatomegaly, some tenderness to deep palation Pt w metastatic disease to the liver w primary not yet known. CT guided liver biopsy done today. Path pending. CEA elevated. Heme/onc and GI following. Appreciate assistance. f/u fluid cx and path. continue pain control. F/u CE thus far neg. Melissa Urena Mar 12, 2017 16:59 Alejandra Pool MD Mar 12, 2017 17:55
[2017-03-12] MEDS ORDERED: POTASSIUM CHLORIDE 10 MEQ CONTROLLED RELEASE TAB PO ONE (17:00)
--- NOTE | 2017-03-12 17:43 | HHI.GIFU ---
Subjective Remarks Resting in bed in no distress. S/P paracentesis and liver biopsy today. States he feels better after having the fluid drained from his abdomen, still mild discomfort, but better. Afebrile. (Elaine Almeida) Objective Vitals I&O Vital Signs Date Time Temp Pulse Resp B/P (MAP) Pulse Ox O2 Delivery O2 Flow Rate FiO2 03/12/17 16:00 96.7 80 18 119/61 (80) 99 03/12/17 13:32 96.1 86 16 106/66 (79) 100 03/12/17 12:20 76 20 99/49 (66) 100 03/12/17 11:50 76 20 99/49 (66) 100 03/12/17 11:35 78 20 99/52 (68) 100 03/12/17 11:20 97.8 83 20 102/45 (64) 100 03/12/17 08:00 97.2 81 20 104/57 (73) 98 03/12/17 04:00 97.6 69 18 112/58 (76) 98 03/12/17 00:00 96.8 61 18 118/60 (79) 99 03/11/17 23:10 16 03/11/17 20:01 96.4 84 19 135/73 (93) 99 I/O 03/11/17 03/11/17 03/11/17 03/12/17 03/12/17 03/12/17 07:00 15:00 23:00 07:00 15:00 23:00 Intake Total 120 ml 0 ml 580 ml Output Total 100 ml 700 ml Balance 120 ml -100 ml -120 ml Intake Oral 120 ml 0 ml 480 ml IV Total 100 ml Output Urine Total 100 ml 700 ml # Voids 2 # Bowel Movements 0 1 Laboratory Laboratory Tests Test 03/11/17 20:29 03/12/17 04:59 03/12/17 05:49 03/12/17 09:32 Lactate Dehydrogenase 675 Total Creatine Kinase 168 Troponin I LESS THAN 0.02 Total Protein 6.1 5.5 Tumor Marker Alpha Fetoprotein 1.7 1.6 Carcinoembryonic Antigen 8990.9 8427.8 CA 19-9 Antigen 3.1 3.1 White Blood Count 17.2 Red Blood Count 2.62 Hemoglobin 8.5 Hematocrit 24.7 Mean Corpuscular Volume 94.4 Mean Corpuscular Hemoglobin 32.5 Mean Corpuscular Hemoglobin Concent 34.4 Red Cell Distribution Width 20.6 Platelet Count 418 Mean Platelet Volume 9.4 CBC Comment AUTO DIFF Differential Total Cells Counted 100 Neutrophils % (Manual) 89 Band Neutrophils % 2 Lymphocytes % 3 Monocytes % 5 Neutrophils # (Manual) 15.8 Myelocytes 1 Differential Comment FINAL DIFF MANUAL Platelet Estimate NORMAL Platelet Morphology Comment ENLARGED Target Cells 2+ Blood Urea Nitrogen 17 Creatinine 0.83 Random Glucose 66 Albumin 1.6 Calcium Level 8.7 Alkaline Phosphatase 553 Aspartate Amino Transf (AST/SGOT) 175 Alanine Aminotransferase (ALT/SGPT) 76 Total Bilirubin 19.6 Sodium Level 133 Potassium Level 3.1 Chloride Level 100 Carbon Dioxide Level 21.0 Anion Gap 12 Estimat Glomerular Filtration Rate 112 Peritoneal Fluid WBC 100 Peritoneal Fluid RBC 70 Peritoneal Fluid Neutrophils 20 Peritoneal Fluid Lymphocytes 56 Peritoneal Fluid Monocytes 5 Peritoneal Fluid Eosinophils 1 Peritoneal Fluid Histiocytes 17 Peritoneal Fluid Mesothelial Cells 1 Peritoneal Fluid Comment Peritoneal Fluid Total Protein 1.9 Peritoneal Fluid Albumin 0.6 Peritoneal Fluid LDH 187 Peritoneal Fluid Glucose 80 Date/Time Source Procedure Growth Status 03/12/17 09:32 Fluid Peritoneal Fluid Gram Stain - Final Resulted 03/12/17 09:32 Fluid Peritoneal Fluid Body Fluid Culture Pending Resulted Imaging Last Impressions Liver Biopsy CT 03/12/17 0757 Signed Impressions: Service Date/Time: Sunday, March 12, 2017 10:46 - CONCLUSION: Uncomplicated CT guided biopsy. Aguila Solano MD Cyst Biopsy Asp-Paracentesis US 03/12/17 0000 Signed Impressions: Service Date/Time: Sunday, March 12, 2017 09:16 - CONCLUSION: Uncomplicated ultrasound guided paracentesis. Aguila Solano MD Abdomen/Pelvis CT 03/11/17 1033 Signed Impressions: Service Date/Time: February 12:12 - CONCLUSION: 1. Extensive hepatic masses consistent with primary or metastatic neoplasm. 2. Multiple non-calcified pulmonary nodules with the largest located in the left lower lobe measuring 2.3 cm consistent with metastatic disease until proven otherwise. 3. Biliary ductal dilatation of indeterminate etiology. MRI of the abdomen with contrast and MRCP may be helpful for further evaluation if clinically indicated. 4. 11 mm splenic nodules which are indeterminate. 5. 2.7 x 1.9 cm left adrenal mass which is indeterminate. 6. Ascites. Aguila Solano MD Lower Extremity Ultrasound 03/11/17 0000 Signed Impressions: Service Date/Time: February 19:37 - CONCLUSION: No DVT. Weston Maya MD Cholangiopancreatography MRI 03/11/17 0000 Signed Impressions: Service Date/Time: February 18:17 - CONCLUSION: Extensive metastatic disease of the liver and I believe the left lobe intrahepatic ductal dilatation is due to associated mass effect. No intraductal stone or definite tumor demonstrated. Gallbladder and common bile duct are nondistended. Weston Maya MD Chest X-Ray 03/11/17 0000 Signed Impressions: Service Date/Time: February 10:49 - CONCLUSION: Normal examination. José Miguel Martinez MD Physical Exam HEENT: Normocephalic; atraumatic; + icterus CHEST: CTA CARDIAC: RRR ABDOMEN: Abdomen soft, distended, mild diffuse tenderness; hepatosplenomegaly; bowel sounds are present in all four quadrants. EXTREMITIES: No clubbing, cyanosis, + edema BLE DIRECT SALES REPRESENTATIVE: No focal deficits; alert and oriented times three. (Elaine Almeida [facility]) Assessment and Plan Plan ASSESSMENT: - Extensive liver masses consistent with primary or metastatic neoplasm. CT Scan abdomen and pelvis (03/11/17)---> extensive hepatic masses consistent with primary or metastatic neoplasm. Multiple non-calcified pulmonary nodules with the largest located in the left lower lobe measuring 2.3 cm consistent with metastatic disease until proven otherwise. Biliary ductal dilatation of indeterminate etiology. MRI of the abdomen with contrast and MRCP may be helpful for further evaluation if clinically indicated. 11mm splenic nodules which are indeterminate. 2.7 x 1.9 cm left adrenal mass which is indeterminate. Ascites. MRCP ()---> Extensive metastatic disease of the liver and I believe the left lobe intrahepatic ductal dilatation is due to associated mass effect. No intraductal stone or definite tumor demonstrated. GB and CBD are nondistended. S/P liver biopsy, pathology pending. AFP 1.6, CEA 8427.8, Ca19.9 3.1. Oncology following. Zosyn, Flagyl - Elevated LFTs secondary to above. no CBD dilatation on MRCP. T. Bili 19.6, AST 175, ALT 76, Alk Phosph 553. - Ascites. S/P US guided paracentesis (03/12/17)---> 3,200cc removed. Cytology pending. Zosyn. Spironolactone. - Leukocytosis. WBC 17.2. Zosyn. - Lower GIB with hematochezia. Not currently having this, but has been having dark stool mixed with dark red clots at home. HH 8.5/24.7. Of note his CEA was significantly elevated at 8427.8. Bx from liver mass pending. ? primary colon. - Anemia, acute blood loss. 8.5/24.7. - Abdominal pain, improved after paracentesis. - Elevated lipase. [address]/MRCP as above. PLAN - MYCHAL - Await pathology - Await cytology - Zosyn/Flagyl - Spironolactone - Add protonix - Monitor labs - Transfuse as necessary - Oncology following - Pt with poor prognosis. Pt would like to determine primary source and see what his treatment options to prolong his survival are. - Further recommendations to follow based on results of above - Pt seen and examined by Dr. Freeman and myself and this note is written on her behalf (Elaine Almeida) Physician Comments seen, examined agree with above (Elen Freeman MD) Elaine Almeida Mar 12, 2017 17:43 Elen Freeman MD Mar 12, 2017 19:45
--- NOTE | 2017-03-12 19:04 | PD.ONC.PN ---
Subjective Subjective Remarks Patient seen and examined, he denies acute complaints. Sitting up in bed having dinner. He tolerated CT-guided biopsy of the liver without difficulties earlier today. Bilirubin level is improved. Objective Data Date Time Temp Pulse Resp B/P (MAP) Pulse Ox O2 Delivery O2 Flow Rate FiO2 03/12/17 16:00 96.7 80 18 119/61 (80) 99 03/12/17 13:32 96.1 86 16 106/66 (79) 100 03/12/17 12:20 76 20 99/49 (66) 100 03/12/17 11:50 76 20 99/49 (66) 100 03/12/17 11:35 78 20 99/52 (68) 100 03/12/17 11:20 97.8 83 20 102/45 (64) 100 03/12/17 08:00 97.2 81 20 104/57 (73) 98 03/12/17 04:00 97.6 69 18 112/58 (76) 98 03/12/17 00:00 96.8 61 18 118/60 (79) 99 03/11/17 23:10 16 03/11/17 20:01 96.4 84 19 135/73 (93) 99 03/12/17 03/12/17 03/12/17 07:00 15:00 23:00 Intake Total 0 ml 580 ml Output Total 100 ml 700 ml Balance -100 ml -120 ml Result Diagram: 03/12/17 0459 03/12/17 0459 Laboratory Results Laboratory Tests Test 03/11/17 20:29 03/12/17 04:59 03/12/17 05:49 03/12/17 09:32 Lactate Dehydrogenase 675 U/L Total Creatine Kinase 168 U/L Troponin I LESS THAN 0.02 NG/ML Total Protein 6.1 GM/DL 5.5 GM/DL Tumor Marker Alpha Fetoprotein 1.7 NG/ML 1.6 NG/ML Carcinoembryonic Antigen 8990.9 NG/ML 8427.8 NG/ML CA 19-9 Antigen 3.1 U/ML 3.1 U/ML White Blood Count 17.2 TH/MM3 Red Blood Count 2.62 MIL/MM3 Hemoglobin 8.5 GM/DL Hematocrit 24.7 % Mean Corpuscular Volume 94.4 FL Mean Corpuscular Hemoglobin 32.5 PG Mean Corpuscular Hemoglobin Concent 34.4 % Red Cell Distribution Width 20.6 % Platelet Count 418 TH/MM3 Mean Platelet Volume 9.4 FL CBC Comment AUTO DIFF Differential Total Cells Counted 100 Neutrophils % (Manual) 89 % Band Neutrophils % 2 % Lymphocytes % 3 % Monocytes % 5 % Neutrophils # (Manual) 15.8 TH/MM3 Myelocytes 1 % Differential Comment FINAL DIFF MANUAL Platelet Estimate NORMAL Platelet Morphology Comment ENLARGED Target Cells 2+ Blood Urea Nitrogen 17 MG/DL Creatinine 0.83 MG/DL Random Glucose 66 MG/DL Albumin 1.6 GM/DL Calcium Level 8.7 MG/DL Alkaline Phosphatase 553 U/L Aspartate Amino Transf (AST/SGOT) 175 U/L Alanine Aminotransferase (ALT/SGPT) 76 U/L Total Bilirubin 19.6 MG/DL Sodium Level 133 MEQ/L Potassium Level 3.1 MEQ/L Chloride Level 100 MEQ/L Carbon Dioxide Level 21.0 MEQ/L Anion Gap 12 MEQ/L Estimat Glomerular Filtration Rate 112 ML/MIN Peritoneal Fluid WBC 100 /MM3 Peritoneal Fluid RBC 70 /MM3 Peritoneal Fluid Neutrophils 20 % Peritoneal Fluid Lymphocytes 56 % Peritoneal Fluid Monocytes 5 % Peritoneal Fluid Eosinophils 1 % Peritoneal Fluid Histiocytes 17 % Peritoneal Fluid Mesothelial Cells 1 % Peritoneal Fluid Comment Peritoneal Fluid Total Protein 1.9 GM/DL Peritoneal Fluid Albumin 0.6 G/DL Peritoneal Fluid LDH 187 U/L Peritoneal Fluid Glucose 80 MG/DL Culture Results Microbiology Date/Time Source Procedure Growth Status 03/12/17 09:32 Fluid Peritoneal Fluid Gram Stain - Final Resulted 03/12/17 09:32 Fluid Peritoneal Fluid Body Fluid Culture Pending Resulted Imaging Studies Last 24 hours Impressions Liver Biopsy CT 03/12/17 0757 Signed Impressions: Service Date/Time: Sunday, March 12, 2017 10:46 - CONCLUSION: Uncomplicated CT guided biopsy. Aguila Solano MD Cyst Biopsy Asp-Paracentesis US 03/12/17 0000 Signed Impressions: Service Date/Time: Sunday, March 12, 2017 09:16 - CONCLUSION: Uncomplicated ultrasound guided paracentesis. Aguila Solano MD Administered Medications Medications (Trade) Dose Ordered Sig/Wilder Route PRN Reason Start Time Stop Time Status Last Admin Dose Admin Sodium Chloride (NS Flush) 2 ml BID IV FLUSH 03/11/17 21:00 03/11/17 21:33 Senna/Docusate Sodium (Oxana-Colace) 1 tab BID PO 03/11/17 21:00 03/12/17 08:20 Acetaminophen/ Hydrocodone Bitart ([place] 5-325 Mg) 1 tab Q4H PRN PO PAIN SCALE 3 TO 6 03/11/17 14:45 03/11/17 21:56 Digoxin (Lanoxin) 0.125 mg DAILY PO 03/12/17 09:00 03/12/17 08:20 Furosemide (Lasix) 40 mg DAILY PO 03/12/17 09:00 03/12/17 08:20 Metoprolol Tartrate (Lopressor) 50 mg BID PO 03/11/17 21:00 03/11/17 21:32 Spironolactone (Aldactone) 25 mg BIDPC PO 03/11/17 18:00 03/12/17 17:56 Tamsulosin HCl (Flomax) 0.4 mg HS PO 03/11/17 21:00 03/11/17 21:56 Piperacillin Sod/ Tazobactam Sod 50 ml @ 100 mls/hr Q6H IV 03/11/17 20:00 03/12/17 13:30 Metronidazole (Flagyl) 500 mg Q6HR PO 03/11/17 18:00 03/12/17 17:56 Objective Remarks GENERAL APPEARANCE: Mr. Nolasco is an elderly male, he appears to be cachectic and chronically ill. He has a very pleasant disposition. HEAD, EYES, EARS, NOSE, AND THROAT: Head atraumatic, normocephalic, conjunctive a are pale sclerae are deeply icteric, EOMI, PERRLA, oral exam icteric. Mucous membranes, dry mucous membranes. NECK: Neck exam no palpable cervical or supraclavicular adenopathy. LUNGS: Respiratory exam; Good air movement bilaterally without any added breath sounds. CARDIOVASCULAR SYSTEM: Regular rate and rhythm, S1-S2 without any on his murmurs, gallops. He has good peripheral pulses. ABDOMEN: Abdominal exam; Belly is thin, it is distended, there is right upper quadrant tenderness, the liver is enlarged and is palpable 4 cm below the right and costal margin as well as the epigastric area. He has positive bowel sounds. There is free fluid in the abdomen noted. EXTREMITIES: Lower extremities: Bilateral pretibial edema. No calf tenderness. CENTRAL NERVOUS SYSTEM: No focal sensory motor deficits. Assessment/Plan Assessment Mr. Nolasco is a very pleasant 66-year-old male who presents to the hospital with progressive abdominal pain and distension as well as jaundice. Imaging studies confirmed the presence of extensive and diffusely present masses in all quadrants and segments of the liver. There is intrahepatic biliary ductal dilatation and pulmonary nodules noted on imaging studies. His total bilirubin level is 22, his alkaline phosphatase, AST and ALT levels are all elevated. These findings are most consistent with a malignancy which is heavily involving the liver and is quite frankly causing a visceral crisis. The patient does report having a several week history of blood clots in the stool, he also reports abdominal distension pain and yellow jaundice. Significant medical comorbid conditions include ischemic cardiomyopathy with an LVEF ranging between 25 and 35%. He also has recent physical debility. Plan 1. Extensive replacement of the liver with malignancy with resultant visceral crisis: CT-guided biopsy of liver mass performed earlier today, await pathology. CEA level greater than 8000. He likely has metastatic colon cancer given his previous history of hematochezia. Hyperbilirubinemia is likely related to hepatic dysfunction due to the liver being heavily involved with malignancy. The patient reiterates his desire to pursue aggressive therapeutic interventions. I would like to await final pathology before talking to him about potential treatment options. I have already talked to him about the possibility that the most reasonable treatment option may be hospice/palliative care. Sergio Vasquez MD Mar 12, 2017 19:04
[2017-03-12] MEDS: ACETAMINOPHEN/HYDROcodone 325 MG/5 MG TAB PO PRN (21:08)
[2017-03-12] MEDS: PANTOPRAZOLE SOD 40 MG DELAYED RELEASE TAB PO SCH (21:08)
[2017-03-12] MEDS: TAMSULOSIN HCL 0.4 MG CAP PO SCH (21:08)
[2017-03-13] VITALS: BP 105/57; PULSE 74; RESP 17; TEMP 97.9; O2SAT 100
[2017-03-13] MEDS: metroNIDAZOLE 500 MG TAB PO SCH ×5 (00:19→23:28)
[2017-03-13] MEDS: PIPERACIL-TAZO 3.375 GM PREMIX 50 ML IV SCH ×4 (01:27→21:24)
[2017-03-13] MEDS: ACETAMINOPHEN/HYDROcodone 325 MG/7.5 MG TAB PO PRN ×3 (01:27→20:28)
[2017-03-13 04:00] VITALS: BP 104/56; PULSE 66; RESP 16; TEMP 97.1; O2SAT 99
--- NOTE | 2017-03-13 06:24 | MB ---
cc: CCList DATE OF CONSULTATION: 03/11/2017 REASON FOR CONSULTATION: Mr. Daryl Nolasco is an unfortunate 66-year-old gentleman who came to the emergency room with complaints of decreased appetite, abdominal pain, distension and some rectal bleed. Mr. Nolasco was in his usual state of health until several weeks ago when he started having some abdominal pain and distension, mostly in the epigastrium and right upper quadrant pain ,also he had some blood in his stools. He reports to be red in nature and some clots also he noted to be jaundiced. He had some weight loss, decreased appetite. He decided to come to the emergency room for further evaluated evaluation and treatment. Never had endoscopy and colonoscopy denies any dysphagia, odynophagia, melena or hematemesis in the emergency room a CT abdomen and pelvis was done which showed extensive metastatic disease in the liver. PAST MEDICAL HISTORY 1. Ischemic cardiomyopathy 2. Hypertension 3. Deep venous thrombosis 4. Valvular heart disease. PAST SURGICAL HISTORY None FAMILY HISTORY Sister had metastatic disease, source unknown. Father had coronary artery disease. SOCIAL HISTORY Denies any drug use. He does have a history of drinking, but not heavy, he was a heavy smoker in the past but he stopped. ALLERGIES No known allergies. MEDICATIONS 1. Zosyn 2. Hydrocortone 3. Digoxin. 4. Enalapril 5. Lasix 6. Lactulose 7. Metoprolol. 8. Metronidazole. 9. Spironolactone 10. Penicillin REVIEW OF SYSTEMS On the review of systems he denies any fever or chills. She does have weight loss, decreased appetite. ENT: No alteration in baseline hearing or visual acuity PULMONARY: Denies any chest pain, He does have some shortness of breath. No cough or hemoptysis. CARDIOVASCULAR SYSTEM: Denies any chest pain, no pedal edema. GASTROINTESTINAL: As above. GENITOURINARY: He reports dark urine. TECHNICAL SERVICES SPECIALIST: Denies any history of TIA or CVA kind of symptoms. PHYSICAL EXAMINATION: IN GENERAL: On clinical exam he is sitting in bed in no acute distress. VITAL SIGNS: Temperature 98.5 heart rate 88, respiration 20, blood pressure 160/75. HEAD, EYES, EARS, NOSE, AND THROAT: Pupils equal, round, reactive to light and accommodation, jaundiced. NECK: No JVD. No lymphadenopathy. CHEST: The chest is clear to auscultation and palpation. CARDIOVASCULAR SYSTEM: S1, S2, no murmur. ABDOMEN: The abdomen is distended, bowel sounds are present. CENTRAL NERVOUS SYSTEM: Awake, alert, oriented x3. No focal signs identified. LABORATORY FINDINGS: INR 1.2, WBC 20, hemoglobin 8.7 and platelets 478. 22 AST normal at 89, alkaline phosphatase 88, alkaline phosphatase 640, albumin 1.9. CT abdomen and pelvis showed extensive hepatic mass is concerning for primary or metastatic neoplasm. Pulmonary nodules bilateral dilatation, splenic nodules. The patient also had a MRCP which showed gallbladder, common bile duct nondistended, extensive metastatic disease of the liver, some intrahepatic ductal dilatation due to associated mass effect. IMPRESSION/PLAN: Mr. Nolasco is an unfortunate 66-year-old gentleman found to have extensive metastatic disease in the liver. Etiology primary source unknown at this time, Obstructive jaundice-there is no dilatation of the common bile duct based on the MRCP ,most likely due to the intrahepatic mass effect from metastatic disease, Rectal bleed, metastatic lesion. suspect possible of colon cancer discussed with oncology for now we are going to perform a CT guided liver biopsy. Palliative care was recommended If bilirubin increases or there are any signs of biliary sepsis may consider ERCP versus PTCA supportive care discussed with Dr. Vasquez from oncology further recommendation will depend on the patient's clinical status and the above results. Thank you MD VENANCIO Phipps/lisa /7:39 PM /6:05 AM LINDA
[2017-03-13 07:34] LABS: HEMATOCRIT 23.3 % (39.0-51.0); MEAN CELL VOLUME 94.8 FL (80.0-100.0); MEAN CORPUSCULAR HEMOGLOBIN 32.4 PG (27.0-34.0); MEAN CORPUSCULAR HGB CONC 34.2 % (32.0-36.0); PLATELET COUNT 366 TH/MM3 (150-450); RED BLOOD COUNT 2.46 MIL/MM3 (4.50-5.90); RED CELL DISTRIBUTION WIDTH 20.7 % (11.6-17.2); WHITE BLOOD COUNT 18.9 TH/MM3 (4.0-11.0)
[2017-03-13 07:45] LABS: HEMO FLAGS AUTO DIFF
[2017-03-13 08:00] VITALS: BP 109/55; PULSE 73; RESP 16; TEMP 98; O2SAT 98
[2017-03-13 08:19] LABS: ALKALINE PHOSPHATASE 513 U/L (45-117); ALT (GPT) 80 U/L (12-78); ANION GAP 11 MEQ/L (5-15); AST (GOT) 198 U/L (15-37); BICARBONATE 19.7 MEQ/L (21.0-32.0); BLOOD UREA NITROGEN 19 MG/DL (7-18); CHLORIDE 104 MEQ/L (98-107); GLOMERULAR FILTRATION RATE 80 ML/MIN (>89); POTASSIUM 3.8 MEQ/L (3.5-5.1); SODIUM (NA) 135 MEQ/L (136-145)
[2017-03-13 08:23] LABS: TOTAL BILIRUBIN ADULT 19.6 MG/DL (0.2-1.0)
[2017-03-13] MEDS: SODIUM CHLORIDE 0.9% FLUSH 10 ML FLUSH IV FLUSH SCH ×2 (08:27→20:23)
[2017-03-13] MEDS: SPIRONOLACTONE 25 MG TAB PO SCH ×2 (08:29→17:33)
[2017-03-13] MEDS: DIGOXIN 0.125 MG TAB PO SCH (08:29)
[2017-03-13] MEDS: PANTOPRAZOLE SOD 40 MG DELAYED RELEASE TAB PO SCH ×2 (08:29→20:23)
[2017-03-13] MEDS: FUROSEMIDE 40 MG TAB PO SCH (08:29)
[2017-03-13] MEDS ORDERED: MORPHINE SULFATE 4 MG/ML INJ IV PUSH PRN (08:45)
[2017-03-13] MEDS: METOPROLOL TARTRATE 50 MG TAB PO SCH ×2 (08:50→20:23)
[2017-03-13] MEDS: DOCUSATE SODIUM 50 MG/SENNA 8.6 MG TAB PO SCH ×2 (08:51→20:28)
[2017-03-13] MEDS: ENALAPRIL MALEATE 2.5 MG TAB PO SCH ×2 (08:51→20:23)
[2017-03-13 08:57] LABS: MYELOCYTES 1 % (0-0); POLYS (SEG NEUTROPHILS) 86 % (16-70)
[2017-03-13 08:58] LABS: BANDS 3 % (0-6); PLATELET ESTIMATE SMEAR NORMAL (NORMAL); PLATELET MORPHOLOGY ENLARGED (NORMAL); TARGET CELLS 2+ (NORMAL); WBC DIFF SAMPLE 100
[2017-03-13 08:59] LABS: SCAN/DIFF FINAL DIFF MANUAL
--- NOTE | 2017-03-13 09:25 | HHI.PR ---
Subjective Remarks Abdominal pain is much improved. CP still an 8/10. Left side "on top of heart". denies any n/v. tells me that he follows w Dr. Payne in his clinic but hasn't seen him recently due to financial reasons. Objective Vitals Vital Signs Date Time Temp Pulse Resp B/P (MAP) Pulse Ox O2 Delivery O2 Flow Rate FiO2 03/13/17 06:49 20 03/13/17 04:00 97.1 66 16 104/56 (72) 99 03/13/17 00:00 97.9 74 17 105/57 (73) 100 03/12/17 22:22 20 03/12/17 20:00 96.5 85 16 133/69 (90) 99 03/12/17 16:00 96.7 80 18 119/61 (80) 99 03/12/17 13:32 96.1 86 16 106/66 (79) 100 03/12/17 12:20 76 20 99/49 (66) 100 03/12/17 11:50 76 20 99/49 (66) 100 03/12/17 11:35 78 20 99/52 (68) 100 03/12/17 11:20 97.8 83 20 102/45 (64) 100 I/O 03/12/17 03/12/17 03/12/17 03/13/17 03/13/17 03/13/17 07:00 15:00 23:00 07:00 15:00 23:00 Intake Total 0 ml 580 ml 480 ml 443 ml Output Total 100 ml 700 ml 200 ml 250 ml Balance -100 ml -120 ml 280 ml 193 ml Intake Oral 0 ml 480 ml 480 ml IV Total 100 ml 443 ml Output Urine Total 100 ml 700 ml 200 ml 250 ml # Bowel Movements 1 7 3 Result Diagram: 03/13/17 0545 03/13/17 0545 Imaging Last Impressions Liver Biopsy CT 03/12/17 0757 Signed Impressions: Service Date/Time: Sunday, March 12, 2017 10:46 - CONCLUSION: Uncomplicated CT guided biopsy. Aguila Solano MD Cyst Biopsy Asp-Paracentesis US 03/12/17 0000 Signed Impressions: Service Date/Time: Sunday, March 12, 2017 09:16 - CONCLUSION: Uncomplicated ultrasound guided paracentesis. Aguila Solano MD Abdomen/Pelvis CT 03/11/17 1033 Signed Impressions: Service Date/Time: February 12:12 - CONCLUSION: 1. Extensive hepatic masses consistent with primary or metastatic neoplasm. 2. Multiple non-calcified pulmonary nodules with the largest located in the left lower lobe measuring 2.3 cm consistent with metastatic disease until proven otherwise. 3. Biliary ductal dilatation of indeterminate etiology. MRI of the abdomen with contrast and MRCP may be helpful for further evaluation if clinically indicated. 4. 11 mm splenic nodules which are indeterminate. 5. 2.7 x 1.9 cm left adrenal mass which is indeterminate. 6. Ascites. Aguila Solano MD Lower Extremity Ultrasound 03/11/17 0000 Signed Impressions: Service Date/Time: February 19:37 - CONCLUSION: No DVT. Weston Maya MD Cholangiopancreatography MRI 03/11/17 0000 Signed Impressions: Service Date/Time: February 18:17 - CONCLUSION: Extensive metastatic disease of the liver and I believe the left lobe intrahepatic ductal dilatation is due to associated mass effect. No intraductal stone or definite tumor demonstrated. Gallbladder and common bile duct are nondistended. Weston Maya MD Chest X-Ray 03/11/17 0000 Signed Impressions: Service Date/Time: February 10:49 - CONCLUSION: Normal examination. José Miguel Martinez MD Objective Remarks GENERAL: cachectic male, laying in bed, very pleasant. Awake and alert. Appears comfortable. EYES: scleral icterus noted. No injection or drainage. ENT: Nose without drainage. Airway patent. NECK: Trachea midline. CARDIOVASCULAR: Regular rate and rhythm . unreproducible chest pain RESPIRATORY: Mild crackles noted in right base. No wheezes appreciated. GASTROINTESTINAL: Abdomen soft, distended but improved. Less tenderness to palpation. (+)Hepatomegaly. MUSCULOSKELETAL: Extremities pitting 1+ edema especially at the feet and ankles left greater than right. NEUROLOGICAL: Awake and alert. Able to move all extremities. Normal speech. A/P Assessment and Plan Jaundice/liver masses/weight loss/abdominal pain/hyperbilirubinemia/ascites: - CT abdomen shows extensive hepatic masses consistent with primary or metastatic neoplasm. Multiple noncalcified pulmonary nodules with the largest located in the left lower lobe measuring 2.3 cm consistent with metastatic disease. Biliary ductal dilatation of indeterminate etiology. 11 mm splenic nodules which are indeterminate. 2.7 x 1.9 cm left adrenal mass which is indeterminate. - Ascites. s/p paracentesis. F/u on fluid studies which are pending. - GI following, appreciate their assistance. Recs are: "Palliative care was recommended if the bilirubin increases or if there are any signs of biliary sepsis, may consider ERCP versus PTCA supportive care" - MRCP shows extensive metastatic disease in the liver and likely the left lobe intrahepatic ductal dilatation due to associated mass effect. - Oncology also following, appreciate their assistance - s/p CT guided liver biopsy. Follow up on results. - CEA elevated 8427, AFP 1.6, CA19-9 3.1. suspecting metastatic colon cancer. - Patient presented with leukocytosis of 20.7 and a platelet count of 478. T bili of 22.2, AST 199, ALT 88. Alkaline phosphatase 640. Patient receive a dose of Zosyn in the emergency room. Continue IV Zosyn and Flagyl by mouth. Today T. Bili is 19.6 AST 198 ALT 80. Continue to monitor CMP, CBC and monitor Vitals. Anemia: 8.7 on admission, now 8.0. monitor closely and transfuse if <7.0. Patient admits to blood clots in his stools. hold aspirin. GI following. Hypokalemia: resolved Chest pain: Troponin 0.02 x 2. EKG no ST elevation or depression. atrial enlargement is noted on EKG. Chest pain is unchanged. Pt is known to Dr. Payne , will consult for further assistance. Continue pain control. I will check xray of ribs to r/o any bone lesions that could potentially cause pain as well since pt does have metastasis. blood clots per rectum: GI following. Hold ASA or any anticoagulation for now. BLE edema: Doppler US negative for DVT. Pancreatitis: Lipase level up to 1151. We'll hold off on giving IV fluids as patient already complaining of shortness of breath and has an EF of 30-35%. Clinically abdominal pain is improving. Hypertension:on lasix/spironolactone/enalapril/metoprolol/digoxin systolic CHF: Chest x-ray didn't show any pulm edema, BNP wnl. Suspect SOB is from ascites and increase abdominal girth. monitor. on lasix, digoxin, metoprolol and enalapril. DVT Proph: SCD. Avoid chemical anticoagulation due to anemia and pt passing blood clots. Discharge Planning d/c pending further work-up and clinical improvement awaiting liver biopsies. monitor LFTs, T. Bili and pt becomes febrile may need ERCP versus PTCA supportive care As of now pt wishes to pursue aggressive management. GI and oncology following. Appreciate assistance from all consultants. consider getting a palliative care consult on Wednesday. Alejandra Pool MD Mar 13, 2017 09:25
--- NOTE | 2017-03-13 09:29 | HHI.GIFU ---
Subjective Remarks Resting in bed. States abdominal pain is improving. He does report that he has had 15 loose stools overnight. States this is worse with food intake and movement- urgent bowel movements whenever he stands. (Elaine Almeida) Objective Vitals I&O Vital Signs Date Time Temp Pulse Resp B/P (MAP) Pulse Ox O2 Delivery O2 Flow Rate FiO2 03/13/17 06:49 20 03/13/17 04:00 97.1 66 16 104/56 (72) 99 03/13/17 00:00 97.9 74 17 105/57 (73) 100 03/12/17 22:22 20 03/12/17 20:00 96.5 85 16 133/69 (90) 99 03/12/17 16:00 96.7 80 18 119/61 (80) 99 03/12/17 13:32 96.1 86 16 106/66 (79) 100 03/12/17 12:20 76 20 99/49 (66) 100 03/12/17 11:50 76 20 99/49 (66) 100 03/12/17 11:35 78 20 99/52 (68) 100 03/12/17 11:20 97.8 83 20 102/45 (64) 100 I/O 03/12/17 03/12/17 03/12/17 03/13/17 03/13/17 03/13/17 07:00 15:00 23:00 07:00 15:00 23:00 Intake Total 0 ml 580 ml 480 ml 443 ml Output Total 100 ml 700 ml 200 ml 250 ml Balance -100 ml -120 ml 280 ml 193 ml Intake Oral 0 ml 480 ml 480 ml IV Total 100 ml 443 ml Output Urine Total 100 ml 700 ml 200 ml 250 ml # Bowel Movements 1 7 3 Laboratory Laboratory Tests Test 03/12/17 09:32 03/13/17 05:45 Peritoneal Fluid WBC 100 Peritoneal Fluid RBC 70 Peritoneal Fluid Neutrophils 20 Peritoneal Fluid Lymphocytes 56 Peritoneal Fluid Monocytes 5 Peritoneal Fluid Eosinophils 1 Peritoneal Fluid Histiocytes 17 Peritoneal Fluid Mesothelial Cells 1 Peritoneal Fluid Comment Peritoneal Fluid Total Protein 1.9 Peritoneal Fluid Albumin 0.6 Peritoneal Fluid LDH 187 Peritoneal Fluid Glucose 80 White Blood Count 18.9 Red Blood Count 2.46 Hemoglobin 8.0 Hematocrit 23.3 Mean Corpuscular Volume 94.8 Mean Corpuscular Hemoglobin 32.4 Mean Corpuscular Hemoglobin Concent 34.2 Red Cell Distribution Width 20.7 Platelet Count 366 Mean Platelet Volume 9.5 CBC Comment AUTO DIFF Differential Total Cells Counted 100 Neutrophils % (Manual) 86 Band Neutrophils % 3 Lymphocytes % 5 Monocytes % 5 Neutrophils # (Manual) 17.0 Myelocytes 1 Differential Comment FINAL DIFF MANUAL Platelet Estimate NORMAL Platelet Morphology Comment ENLARGED Target Cells 2+ Blood Urea Nitrogen 19 Creatinine 1.11 Random Glucose 99 Total Protein 5.6 Albumin 1.5 Calcium Level 8.2 Alkaline Phosphatase 513 Aspartate Amino Transf (AST/SGOT) 198 Alanine Aminotransferase (ALT/SGPT) 80 Total Bilirubin 19.6 Sodium Level 135 Potassium Level 3.8 Chloride Level 104 Carbon Dioxide Level 19.7 Anion Gap 11 Estimat Glomerular Filtration Rate 80 Date/Time Source Procedure Growth Status 03/12/17 09:32 Fluid Peritoneal Fluid Gram Stain - Final Resulted 03/12/17 09:32 Fluid Peritoneal Fluid Body Fluid Culture Pending Resulted Imaging Last Impressions Liver Biopsy CT 03/12/17 0757 Signed Impressions: Service Date/Time: Sunday, March 12, 2017 10:46 - CONCLUSION: Uncomplicated CT guided biopsy. Aguila Solano MD Cyst Biopsy Asp-Paracentesis US 03/12/17 0000 Signed Impressions: Service Date/Time: Sunday, March 12, 2017 09:16 - CONCLUSION: Uncomplicated ultrasound guided paracentesis. Aguila Solano MD Abdomen/Pelvis CT 03/11/17 1033 Signed Impressions: Service Date/Time: February 12:12 - CONCLUSION: 1. Extensive hepatic masses consistent with primary or metastatic neoplasm. 2. Multiple non-calcified pulmonary nodules with the largest located in the left lower lobe measuring 2.3 cm consistent with metastatic disease until proven otherwise. 3. Biliary ductal dilatation of indeterminate etiology. MRI of the abdomen with contrast and MRCP may be helpful for further evaluation if clinically indicated. 4. 11 mm splenic nodules which are indeterminate. 5. 2.7 x 1.9 cm left adrenal mass which is indeterminate. 6. Ascites. Aguila Solano MD Lower Extremity Ultrasound 03/11/17 0000 Signed Impressions: Service Date/Time: February 19:37 - CONCLUSION: No DVT. Weston Maya MD Cholangiopancreatography MRI 03/11/17 0000 Signed Impressions: Service Date/Time: February 18:17 - CONCLUSION: Extensive metastatic disease of the liver and I believe the left lobe intrahepatic ductal dilatation is due to associated mass effect. No intraductal stone or definite tumor demonstrated. Gallbladder and common bile duct are nondistended. Weston Maya MD Chest X-Ray 03/11/17 0000 Signed Impressions: Service Date/Time: February 10:49 - CONCLUSION: Normal examination. José Miguel Martinez MD Physical Exam HEENT: Normocephalic; atraumatic; + icterus CHEST: CTA CARDIAC: RRR ABDOMEN: Abdomen soft, distended, mild diffuse tenderness; hepatosplenomegaly; bowel sounds are present in all four quadrants. EXTREMITIES: No clubbing, cyanosis, + edema BLE POND SUPERVISOR: No focal deficits; alert and oriented times three. (Elaine Almeida) Assessment and Plan Plan ASSESSMENT: - Extensive liver masses consistent with primary or metastatic neoplasm. CT Scan abdomen and pelvis (03/11/17)---> extensive hepatic masses consistent with primary or metastatic neoplasm. Multiple non-calcified pulmonary nodules with the largest located in the left lower lobe measuring 2.3 cm consistent with metastatic disease until proven otherwise. Biliary ductal dilatation of indeterminate etiology. MRI of the abdomen with contrast and MRCP may be helpful for further evaluation if clinically indicated. 11mm splenic nodules which are indeterminate. 2.7 x 1.9 cm left adrenal mass which is indeterminate. Ascites. MRCP ()---> Extensive metastatic disease of the liver and I believe the left lobe intrahepatic ductal dilatation is due to associated mass effect. No intraductal stone or definite tumor demonstrated. GB and CBD are nondistended. S/P liver biopsy, pathology pending. AFP 1.6, CEA 8427.8, Ca19.9 3.1. ? Metastatic colon cancer. Oncology following. Zosyn, Flagyl - Elevated LFTs secondary to above. no CBD dilatation on MRCP. T. Bili 19.6, AST 198, ALT 80, Alk Phosph 513. Liver bx pending. - Ascites. S/P US guided paracentesis (03/12/17)---> 3,200cc removed. CX with no WBC/Organisms seen. Cytology pending. Zosyn. Flagyl Spironolactone. - Leukocytosis. WBC 18.9. Flagyl, Zosyn. Is having significant diarrhea now- will check for Cdiff. - Diarrhea. 15 bms yesterday. WBC 18.9. Check stool for CDiff. Flagyl. - Lower GIB with hematochezia. Not currently having this, but has been having dark stool mixed with dark red clots at home. HH 8.5/24.7. Of note his CEA was significantly elevated at 8427.8. Bx from liver mass pending. ? primary colon. - Anemia, acute blood loss. 8.0/23.3. - Abdominal pain, improved after paracentesis. - Elevated lipase. [address]/MRCP as above. PLAN - MYCHAL - Await pathology from liver biopsy - Await cytology from peritoneal fluid - Send stool for CDiff PCR - Zosyn/Flagyl - Spironolactone - Protonix - Monitor labs - Transfuse as necessary - Oncology following - Pt with poor prognosis. Pt would like to determine primary source and see what his treatment options to prolong his survival are. - Further recommendations to follow based on results of above - Pt seen and examined by Dr. Freeman and myself and this note is written on her behalf (Elaine Almeida) Physician Comments Seen and examined with MITUL, awaiting liver choi. Overall does not look good. Will follow. (Kishore Farias MD) Elaine Almeida Mar 13, 2017 09:29 Kishore Farias MD Mar 13, 2017 12:01
--- NOTE | 2017-03-13 09:44 | PD.ONC.PN ---
Subjective Subjective Remarks Afebrile overnight. patient resting in bed in nad. No overnight events. Objective Data Date Time Temp Pulse Resp B/P (MAP) Pulse Ox O2 Delivery O2 Flow Rate FiO2 03/13/17 06:49 20 03/13/17 04:00 97.1 66 16 104/56 (72) 99 03/13/17 00:00 97.9 74 17 105/57 (73) 100 03/12/17 22:22 20 03/12/17 20:00 96.5 85 16 133/69 (90) 99 03/12/17 16:00 96.7 80 18 119/61 (80) 99 03/12/17 13:32 96.1 86 16 106/66 (79) 100 03/12/17 12:20 76 20 99/49 (66) 100 03/12/17 11:50 76 20 99/49 (66) 100 03/12/17 11:35 78 20 99/52 (68) 100 03/12/17 11:20 97.8 83 20 102/45 (64) 100 03/13/17 03/13/17 03/13/17 07:00 15:00 23:00 Intake Total 443 ml Output Total 250 ml Balance 193 ml Result Diagram: 03/13/17 0545 03/13/17 0545 Laboratory Results Laboratory Tests Test 03/13/17 05:45 White Blood Count 18.9 TH/MM3 Red Blood Count 2.46 MIL/MM3 Hemoglobin 8.0 GM/DL Hematocrit 23.3 % Mean Corpuscular Volume 94.8 FL Mean Corpuscular Hemoglobin 32.4 PG Mean Corpuscular Hemoglobin Concent 34.2 % Red Cell Distribution Width 20.7 % Platelet Count 366 TH/MM3 Mean Platelet Volume 9.5 FL CBC Comment AUTO DIFF Differential Total Cells Counted 100 Neutrophils % (Manual) 86 % Band Neutrophils % 3 % Lymphocytes % 5 % Monocytes % 5 % Neutrophils # (Manual) 17.0 TH/MM3 Myelocytes 1 % Differential Comment FINAL DIFF MANUAL Platelet Estimate NORMAL Platelet Morphology Comment ENLARGED Target Cells 2+ Blood Urea Nitrogen 19 MG/DL Creatinine 1.11 MG/DL Random Glucose 99 MG/DL Total Protein 5.6 GM/DL Albumin 1.5 GM/DL Calcium Level 8.2 MG/DL Alkaline Phosphatase 513 U/L Aspartate Amino Transf (AST/SGOT) 198 U/L Alanine Aminotransferase (ALT/SGPT) 80 U/L Total Bilirubin 19.6 MG/DL Sodium Level 135 MEQ/L Potassium Level 3.8 MEQ/L Chloride Level 104 MEQ/L Carbon Dioxide Level 19.7 MEQ/L Anion Gap 11 MEQ/L Estimat Glomerular Filtration Rate 80 ML/MIN Culture Results Microbiology Date/Time Source Procedure Growth Status 03/12/17 09:32 Fluid Peritoneal Fluid Gram Stain - Final Resulted 03/12/17 09:32 Fluid Peritoneal Fluid Body Fluid Culture Pending Resulted Administered Medications Medications (Trade) Dose Ordered Sig/Wilder Route PRN Reason Start Time Stop Time Status Last Admin Dose Admin Sodium Chloride (NS Flush) 2 ml BID IV FLUSH 03/11/17 21:00 03/13/17 08:27 Senna/Docusate Sodium (Oxana-Colace) 1 tab BID PO 03/11/17 21:00 03/12/17 08:20 Acetaminophen/ Hydrocodone Bitart ([place] 5-325 Mg) 1 tab Q4H PRN PO PAIN SCALE 3 TO 6 03/11/17 14:45 03/12/17 21:08 Acetaminophen/ Hydrocodone Bitart ([place] 7.5-325 Mg) 1 tab Q6H PRN PO PAIN SCALE 7 TO 10 03/11/17 14:45 03/13/17 05:42 Digoxin (Lanoxin) 0.125 mg DAILY PO 03/12/17 09:00 03/13/17 08:29 Enalapril Maleate (Vasotec) 2.5 mg BID PO 03/11/17 21:00 03/12/17 21:08 Furosemide (Lasix) 40 mg DAILY PO 03/12/17 09:00 03/13/17 08:29 Metoprolol Tartrate (Lopressor) 50 mg BID PO 03/11/17 21:00 03/12/17 21:08 Spironolactone (Aldactone) 25 mg BIDPC PO 03/11/17 18:00 03/13/17 08:29 Tamsulosin HCl (Flomax) 0.4 mg HS PO 03/11/17 21:00 03/12/17 21:08 Piperacillin Sod/ Tazobactam Sod 50 ml @ 100 mls/hr Q6H IV 03/11/17 20:00 03/13/17 08:26 Metronidazole (Flagyl) 500 mg Q6HR PO 03/11/17 18:00 03/13/17 05:42 Pantoprazole Sodium (Protonix) 40 mg Q12HR PO 03/12/17 21:00 03/13/17 08:29 Objective Remarks GENERAL: Middle aged male upright in bed in nad. SKIN: Warm and dry. HEAD: Normocephalic. EYES: ++ scleral icterus. No injection or drainage. NECK: Supple, trachea midline. CARDIOVASCULAR: Regular rate and rhythm RESPIRATORY: Breath sounds equal bilaterally. No accessory muscle use. GASTROINTESTINAL: Abdomen distended with ascites. EXTREMITIES: No cyanosis NEUROLOGICAL: awake and alert, normal speech. able to move extremities. Assessment/Plan Problem List: (1) Liver masses ICD Codes: R16.0 - Hepatomegaly, not elsewhere classified Status: Acute Plan: -- Extensive replacement of the liver with malignancy with resultant visceral crisis: --s/p CT-guided biopsy of liver jazmin 03/13. pathology pending. CEA level greater than 8000. --likely has metastatic colon cancer given his previous history of hematochezia. --Hyperbilirubinemia is likely related to hepatic dysfunction due to the liver being heavily involved with malignancy. --patient desires to pursue aggressive therapeutic interventions. --Dr. Vasquez would like to await final pathology before talking to him about potential treatment options. --Dr. Vasquez has already talked to him about the possibility that the most reasonable treatment option may be hospice/palliative care. Assessment Mr. Nolasco is a very pleasant 66-year-old male who presents to the hospital with progressive abdominal pain and distension as well as jaundice. Imaging studies confirmed the presence of extensive and diffusely present masses in all quadrants and segments of the liver. There is intrahepatic biliary ductal dilatation and pulmonary nodules noted on imaging studies. His total bilirubin level is 22, his alkaline phosphatase, AST and ALT levels are all elevated. These findings are most consistent with a malignancy which is heavily involving the liver and is quite frankly causing a visceral crisis. The patient does report having a several week history of blood clots in the stool, he also reports abdominal distension pain and yellow jaundice. Significant medical comorbid conditions include ischemic cardiomyopathy with an LVEF ranging between 25 and 35%. He also has recent physical debility. Plan 1. monitor bilirubin 2. continue supportive and aggressive care 3. await pathology Attending Statement The exam, history, and the medical decision-making described in the above note were completed with the assistance of the mid-level provider. I reviewed and agree with the findings presented. I attest that I had a [id number] encounter with the patient on the same day, and personally performed and documented my assessment and findings in the medical record. No abdominal pain. Bilirubin still elevated. Await path from liver biopsy. Continue supportive care. Shu Villegas Mar 13, 2017 09:44 Venkat Zhu MD Mar 13, 2017 12:04
--- NOTE | 2017-03-13 10:37 | RADRPT ---
EXAM DATE/TIME: 03/13/2017 10:14 [place] COMPARISON: No previous studies available for comparison. INDICATIONS : Left sided upper chest pain, vomitting, and diarrhea for four days. MEDICAL HISTORY : Hypertension. Congestive heart failure. Hypercholesterolemia. Dyspnea. Liver mass. SURGICAL HISTORY : None. ENCOUNTER: Initial ACUITY: 4 - 6 days PAIN SCORE: 0/10 LOCATION: Left upper chest FINDINGS: Multiple views of both ribs were performed. There is no evidence of displaced fracture. No destruct elgin lesions or areas of periosteal thickening are seen. Expiratory view of the chest is negative for pneumothorax. The mediastinal structures are midline. CONCLUSION: No acute disease. Weston Westbrook MD on March 13, 2017 at 10:35 Board Certified Radiologist. This report was verified electronically.
[2017-03-13 12:00] VITALS: BP 100/57; PULSE 77; RESP 14; TEMP 98; O2SAT 98
[2017-03-13 15:12] LABS: C. DIFF EPI 027 PRESUMPTIVE NEGATIVE (NEGATIVE)
[2017-03-13 16:00] VITALS: BP 117/63; PULSE 88; RESP 12; TEMP 98.1; O2SAT 100
[2017-03-13 20:00] VITALS: BP 108/56; PULSE 84; RESP 17; TEMP 97.7; O2SAT 99
[2017-03-13] MEDS: TAMSULOSIN HCL 0.4 MG CAP PO SCH (20:23)
[2017-03-14] VITALS: BP 96/51; PULSE 85; RESP 16; TEMP 97; O2SAT 99
[2017-03-14] MEDS: PIPERACIL-TAZO 3.375 GM PREMIX 50 ML IV SCH ×4 (01:56→20:16)
[2017-03-14 04:00] VITALS: BP 112/63; PULSE 79; RESP 16; TEMP 97.2; O2SAT 100
[2017-03-14] MEDS: metroNIDAZOLE 500 MG TAB PO SCH ×4 (05:52→23:31)
[2017-03-14] MEDS: ACETAMINOPHEN/HYDROcodone 325 MG/7.5 MG TAB PO PRN ×3 (05:54→23:33)
[2017-03-14 07:39] LABS: AUTOMATED NEUTROPHIL # 15.5 TH/MM3 (1.8-7.7); BASOPHIL % 0.2 % (0.0-2.0); EOSINOPHIL # 0.1 TH/MM3 (0-0.4); EOSINOPHIL % 0.2 % (0.0-4.0); HEMATOCRIT 22.4 % (39.0-51.0); LYMPH % 18.4 % (9.0-44.0); LYMPHOCYTE # 3.8 TH/MM3 (1.0-4.8); MEAN CELL VOLUME 94.8 FL (80.0-100.0); MEAN CORPUSCULAR HGB CONC 34.8 % (32.0-36.0); MONO % 5.4 % (0.0-8.0); NEUT % 75.8 % (16.0-70.0); PLATELET COUNT 347 TH/MM3 (150-450); RED BLOOD COUNT 2.37 MIL/MM3 (4.50-5.90); RED CELL DISTRIBUTION WIDTH 21.1 % (11.6-17.2); WHITE BLOOD COUNT 20.5 TH/MM3 (4.0-11.0)
[2017-03-14 07:41] LABS: HEMO FLAGS AUTO DIFF
[2017-03-14 08:00] VITALS: BP 111/56; PULSE 66; RESP 14; TEMP 98.1; O2SAT 100
[2017-03-14 08:04] LABS: ALKALINE PHOSPHATASE 462 U/L (45-117); ALT (GPT) 77 U/L (12-78); ANION GAP 11 MEQ/L (5-15); AST (GOT) 199 U/L (15-37); BLOOD UREA NITROGEN 17 MG/DL (7-18); CHLORIDE 103 MEQ/L (98-107); GLOMERULAR FILTRATION RATE 81 ML/MIN (>89); MAGNESIUM 1.9 MG/DL (1.5-2.5); POTASSIUM 3.2 MEQ/L (3.5-5.1); SODIUM (NA) 134 MEQ/L (136-145)
[2017-03-14] MEDS: DOCUSATE SODIUM 50 MG/SENNA 8.6 MG TAB PO SCH ×2 (09:00→21:00)
[2017-03-14] MEDS: DIGOXIN 0.125 MG TAB PO SCH (09:43)
[2017-03-14] MEDS: SODIUM CHLORIDE 0.9% FLUSH 10 ML FLUSH IV FLUSH SCH ×2 (09:43→20:17)
[2017-03-14] MEDS: METOPROLOL TARTRATE 50 MG TAB PO SCH ×2 (09:44→20:17)
[2017-03-14] MEDS: PANTOPRAZOLE SOD 40 MG DELAYED RELEASE TAB PO SCH ×2 (09:44→20:17)
[2017-03-14] MEDS: SPIRONOLACTONE 25 MG TAB PO SCH ×2 (09:44→17:32)
[2017-03-14] MEDS: ENALAPRIL MALEATE 2.5 MG TAB PO SCH ×2 (09:45→20:17)
[2017-03-14] MEDS: FUROSEMIDE 40 MG TAB PO SCH (09:45)
--- NOTE | 2017-03-14 09:57 | HHI.PR ---
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 STATUS AT THIS TIME DW RN AND PT PT AND OT TO CONSULT Objective Vitals Vital Signs Date Time Temp Pulse Resp B/P (MAP) Pulse Ox O2 Delivery O2 Flow Rate FiO2 03/14/17 06:54 16 03/14/17 04:00 97.2 79 16 112/63 (79) 100 03/14/17 00:00 97.0 85 16 96/51 (66) 99 03/13/17 20:00 97.7 84 17 108/56 (73) 99 03/13/17 16:00 98.1 88 12 117/63 (81) 100 03/13/17 12:00 98.0 77 14 100/57 (71) 98 I/O 03/13/17 03/13/17 03/13/17 03/14/17 03/14/17 03/14/17 07:00 15:00 23:00 07:00 15:00 23:00 Intake Total 443 ml 680 ml 480 ml 240 ml Output Total 250 ml 200 ml 450 ml 1000 ml Balance 193 ml 480 ml 30 ml -760 ml Intake Oral 680 ml 480 ml 240 ml IV Total 443 ml Output Urine Total 250 ml 200 ml 450 ml 1000 ml # Voids 3 # Bowel Movements 3 2 1 1 Result Diagram: 03/14/17 0600 03/14/17 06 Other Results Laboratory Tests Test 03/11/17 10:35 03/11/17 20:29 03/12/17 04:59 03/12/17 05:49 White Blood Count 20.7 TH/MM3 17.2 TH/MM3 Red Blood Count 2.76 MIL/MM3 2.62 MIL/MM3 Hemoglobin 8.7 GM/DL 8.5 GM/DL Hematocrit 25.6 % 24.7 % Mean Corpuscular Volume 92.9 FL 94.4 FL Mean Corpuscular Hemoglobin 31.7 PG 32.5 PG Mean Corpuscular Hemoglobin Concent 34.1 % 34.4 % Red Cell Distribution Width 20.5 % 20.6 % Platelet Count 478 TH/MM3 418 TH/MM3 Mean Platelet Volume 9.3 FL 9.4 FL CBC Comment AUTO DIFF AUTO DIFF Differential Total Cells Counted 100 100 Neutrophils % (Manual) 88 % 89 % Band Neutrophils % 1 % 2 % Lymphocytes % 4 % 3 % Monocytes % 7 % 5 % Neutrophils # (Manual) 18.4 TH/MM3 15.8 TH/MM3 Differential Comment FINAL DIFF MANUAL FINAL DIFF MANUAL Platelet Estimate HIGH NORMAL Platelet Morphology Comment NORMAL ENLARGED Target Cells 2+ 2+ Prothrombin Time 12.8 SEC Prothromb Time International Ratio 1.2 RATIO Activated Partial Thromboplast Time 28.0 SEC Blood Urea Nitrogen 21 MG/DL 17 MG/DL Creatinine 1.05 MG/DL 0.83 MG/DL Random Glucose 115 MG/DL 66 MG/DL Total Protein 6.3 GM/DL 6.1 GM/DL 5.5 GM/DL Albumin 1.9 GM/DL 1.6 GM/DL Calcium Level 8.4 MG/DL 8.7 MG/DL Alkaline Phosphatase 640 U/L 553 U/L Aspartate Amino Transf (AST/SGOT) 199 U/L 175 U/L Alanine Aminotransferase (ALT/SGPT) 88 U/L 76 U/L Total Bilirubin 22.2 MG/DL 19.6 MG/DL Sodium Level 133 MEQ/L 133 MEQ/L Potassium Level 3.5 MEQ/L 3.1 MEQ/L Chloride Level 101 MEQ/L 100 MEQ/L Carbon Dioxide Level 21.0 MEQ/L 21.0 MEQ/L Anion Gap 11 MEQ/L 12 MEQ/L Estimat Glomerular Filtration Rate 86 ML/MIN 112 ML/MIN Troponin I LESS THAN 0.02 NG/ML LESS THAN 0.02 NG/ML B-Type Natriuretic Peptide 59 PG/ML Lipase 1151 U/L Lactate Dehydrogenase 675 U/L Total Creatine Kinase 168 U/L Tumor Marker Alpha Fetoprotein 1.7 NG/ML 1.6 NG/ML Carcinoembryonic Antigen 8990.9 NG/ML 8427.8 NG/ML CA 19-9 Antigen 3.1 U/ML 3.1 U/ML Myelocytes 1 % Magnesium Level 2.0 MG/DL Test 03/12/17 09:32 03/13/17 05:45 03/13/17 11:40 03/14/17 06:00 Body Fluid Amylase Source PERITONEAL FLUID Body Fluid Amylase 49 U/L Peritoneal Fluid WBC 100 /MM3 Peritoneal Fluid RBC 70 /MM3 Peritoneal Fluid Neutrophils 20 % Peritoneal Fluid Lymphocytes 56 % Peritoneal Fluid Monocytes 5 % Peritoneal Fluid Eosinophils 1 % Peritoneal Fluid Histiocytes 17 % Peritoneal Fluid Mesothelial Cells 1 % Peritoneal Fluid Comment Peritoneal Fluid Total Protein 1.9 GM/DL Peritoneal Fluid Albumin 0.6 G/DL Peritoneal Fluid LDH 187 U/L Peritoneal Fluid Glucose 80 MG/DL White Blood Count 18.9 TH/MM3 20.5 TH/MM3 Red Blood Count 2.46 MIL/MM3 2.37 MIL/MM3 Hemoglobin 8.0 GM/DL 7.8 GM/DL Hematocrit 23.3 % 22.4 % Mean Corpuscular Volume 94.8 FL 94.8 FL Mean Corpuscular Hemoglobin 32.4 PG 33.0 PG Mean Corpuscular Hemoglobin Concent 34.2 % 34.8 % Red Cell Distribution Width 20.7 % 21.1 % Platelet Count 366 TH/MM3 347 TH/MM3 Mean Platelet Volume 9.5 FL 10.0 FL CBC Comment AUTO DIFF AUTO DIFF Differential Total Cells Counted 100 Neutrophils % (Manual) 86 % Band Neutrophils % 3 % Lymphocytes % 5 % Monocytes % 5 % Neutrophils # (Manual) 17.0 TH/MM3 Myelocytes 1 % Differential Comment FINAL DIFF MANUAL Platelet Estimate NORMAL Platelet Morphology Comment ENLARGED Target Cells 2+ Blood Urea Nitrogen 19 MG/DL 17 MG/DL Creatinine 1.11 MG/DL 1.10 MG/DL Random Glucose 99 MG/DL 116 MG/DL Total Protein 5.6 GM/DL 5.3 GM/DL Albumin 1.5 GM/DL 1.5 GM/DL Calcium Level 8.2 MG/DL 7.9 MG/DL Alkaline Phosphatase 513 U/L 462 U/L Aspartate Amino Transf (AST/SGOT) 198 U/L 199 U/L Alanine Aminotransferase (ALT/SGPT) 80 U/L 77 U/L Total Bilirubin 19.6 MG/DL 18.0 MG/DL Sodium Level 135 MEQ/L 134 MEQ/L Potassium Level 3.8 MEQ/L 3.2 MEQ/L Chloride Level 104 MEQ/L 103 MEQ/L Carbon Dioxide Level 19.7 MEQ/L 20.0 MEQ/L Anion Gap 11 MEQ/L 11 MEQ/L Estimat Glomerular Filtration Rate 80 ML/MIN 81 ML/MIN Stool C. difficile Toxin (PCR) NEGATIVE Stl C. difficile Toxin Epiderm 027 PRESUMPTIVE NEGATIVE Neutrophils (%) (Auto) 75.8 % Lymphocytes (%) (Auto) 18.4 % Monocytes (%) (Auto) 5.4 % Eosinophils (%) (Auto) 0.2 % Basophils (%) (Auto) 0.2 % Neutrophils # (Auto) 15.5 TH/MM3 Lymphocytes # (Auto) 3.8 TH/MM3 Monocytes # (Auto) 1.1 TH/MM3 Eosinophils # (Auto) 0.1 TH/MM3 Basophils # (Auto) 0.0 TH/MM3 Magnesium Level 1.9 MG/DL Lipase 207 U/L Imaging Last Impressions Ribs X-Ray 03/13/17 0000 Signed Impressions: Service Date/Time: Monday, March 13, 2017 10:14 - CONCLUSION: No acute disease. Weston Westbrook MD Liver Biopsy CT 03/12/17 0757 Signed Impressions: Service Date/Time: Sunday, March 12, 2017 10:46 - CONCLUSION: Uncomplicated CT guided biopsy. Aguila Solano MD Cyst Biopsy Asp-Paracentesis US 03/12/17 0000 Signed Impressions: Service Date/Time: Sunday, March 12, 2017 09:16 - CONCLUSION: Uncomplicated ultrasound guided paracentesis. Aguila Solano MD Abdomen/Pelvis CT 03/11/17 1033 Signed Impressions: Service Date/Time: February 12:12 - CONCLUSION: 1. Extensive hepatic masses consistent with primary or metastatic neoplasm. 2. Multiple non-calcified pulmonary nodules with the largest located in the left lower lobe measuring 2.3 cm consistent with metastatic disease until proven otherwise. 3. Biliary ductal dilatation of indeterminate etiology. MRI of the abdomen with contrast and MRCP may be helpful for further evaluation if clinically indicated. 4. 11 mm splenic nodules which are indeterminate. 5. 2.7 x 1.9 cm left adrenal mass which is indeterminate. 6. Ascites. Aguila Solano MD Lower Extremity Ultrasound 03/11/17 0000 Signed Impressions: Service Date/Time: February 19:37 - CONCLUSION: No DVT. Weston Maya MD Cholangiopancreatography MRI 03/11/17 0000 Signed Impressions: Service Date/Time: February 18:17 - CONCLUSION: Extensive metastatic disease of the liver and I believe the left lobe intrahepatic ductal dilatation is due to associated mass effect. No intraductal stone or definite tumor demonstrated. Gallbladder and common bile duct are nondistended. Weston Maya MD Chest X-Ray 03/11/17 0000 Signed Impressions: Service Date/Time: February 10:49 - CONCLUSION: Normal examination. José Miguel Martinez MD Objective Remarks GENERAL: AWAKE ALERT AND ORIENTED x3 SKIN: Warm and dry.JAUNDICE HEAD: Atraumatic. Normocephalic. EYES: Pupils equal and round. POSITIVE SCLERAL ICTERUS. No injection or drainage. ENT: No nasal bleeding or discharge. Mucous membranes pink and moist. TONGUE MIDLINE NECK: Trachea midline. No JVD. SUPPLE CARDIOVASCULAR: Regular rate and rhythm. S1, S2 NO S3 OR S4 NO HEAVE OR THRILL RESPIRATORY: No accessory muscle use. Clear to auscultation. Breath sounds equal bilaterally. GASTROINTESTINAL: Abdomen soft, non-tender, nondistended. HEPATOMEGALY. LESS DISTENDED MUSCULOSKELETAL: Extremities without clubbing, cyanosis, PLUS 1 LE EDEMA BL. No obvious deformities. NEUROLOGICAL: Awake and alert. No obvious cranial nerve deficits. Motor grossly within normal limits. Five out of 5 muscle strength in the arms and legs. Normal speech. PSYCHIATRIC: Appropriate mood and affect; insight and judgment normal. Procedures PARACENTESIS AND LIVER BIOPSIES Medications and IVs Current Medications Sodium Chloride (NS Flush) 2 ml UNSCH PRN IV FLUSH FLUSH AFTER USING IV ACCESS ; Start 03/11/17 at 10:45; Stop 03/11/17 at 14:42; Status DC Iohexol (Omnipaque 350 Inj) 99 ml STK-MED ONCE IVCONTRAST Last administered on 03/11/17 12:21; Start 03/11/17 at 12:21; Stop 03/11/17 at 12:22; Status DC Piperacillin Sod/ Tazobactam Sod 50 ml @ 100 mls/hr ONCE ONCE IV Last administered on 03/11/17 12:56; Start 03/11/17 at 12:45; Stop 03/11/17 at 13:14 ; Status DC Sodium Chloride 1,000 ml @ 75 mls/hr [id number] IV Last administered on 04:22; Start 03/11/17 at 15:00; Stop 03/12/17 at 16:58; Status DC Sodium Chloride (NS Flush) 2 ml UNSCH PRN IV FLUSH FLUSH AFTER USING IV ACCESS ; Start 03/11/17 at 14:45 Sodium Chloride (NS Flush) 2 ml BID IV FLUSH Last administered on 03/13/17 20: 23; Start 03/11/17 at 21:00 Ondansetron HCl (Zofran Inj) 4 mg Q6H PRN IVP NAUSEA OR VOMITING; Start at 14:45 Naloxone HCl (Narcan Inj) 0.4 mg UNSCH PRN IV PUSH SEE LABEL COMMENTS; Start at 14:45 Senna/Docusate Sodium (Oxana-Colace) 1 tab BID PO Last administered on 08:20; Start 03/11/17 at 21:00 Magnesium Hydroxide (Milk Of Magnesia Liq) 30 ml Q12H PRN PO MILD - MODERATE CONSTIPATION; Start 03/11/17 at 14:45 Sennosides (Senokot) 17.2 mg Q12H PRN PO MODERATE - SEVERE CONSTIPATION; Start 03/11/17 at 14:45 Bisacodyl (Dulcolax Supp) 10 mg DAILY PRN RECTAL SEVERE CONSITIPATION; Start at 14:45 Lactulose (Lactulose Liq) 30 ml DAILY PRN PO SEVERE CONSITIPATION; Start at 14:45 Acetaminophen/ Hydrocodone Bitart ([place] 5-325 Mg) 1 tab Q4H PRN PO PAIN SCALE 3 TO 6 Last administered on 03/12/17 21:08; Start 03/11/17 at 14:45 Acetaminophen/ Hydrocodone Bitart ([place] 7.5-325 Mg) 1 tab Q6H PRN PO PAIN SCALE 7 TO 10 Last administered on 03/14/17 05:54; Start 03/11/17 at 14:45 Digoxin (Lanoxin) 0.125 mg DAILY PO Last administered on 03/13/17 08:29; Start 03/12/17 at 09:00 Enalapril Maleate (Vasotec) 2.5 mg BID PO Last administered on 03/13/17 20:23 ; Start 03/11/17 at 21:00 Furosemide (Lasix) 40 mg DAILY PO Last administered on 03/13/17 08:29; Start 03/12/17 at 09:00 Metoprolol Tartrate (Lopressor) 50 mg BID PO Last administered on 03/13/17 20: 23; Start 03/11/17 at 21:00 Spironolactone (Aldactone) 25 mg BIDPC PO Last administered on 03/13/17 17:33 ; Start 03/11/17 at 18:00 Tamsulosin HCl (Flomax) 0.4 mg HS PO Last administered on 03/13/17 20:23; Start 03/11/17 at 21:00 Piperacillin Sod/ Tazobactam Sod 50 ml @ 100 mls/hr Q6H IV Last administered on 03/14/17 01:56; Start 03/11/17 at 20:00 Metronidazole (Flagyl) 500 mg Q6HR PO Last administered on 03/14/17 05:52; Start 03/11/17 at 18:00 Gadodiamide (Omniscan Pf Inj) 15 ml STK-MED ONCE IVCONTRAST Last administered on 03/11/17 19:05; Start 03/11/17 at 19:05; Stop 03/11/17 at 19:06; Status DC Lidocaine HCl (Xylocaine 1% Inj) 20 ml STK-MED ONCE .ROUTE Last administered on 03/12/17 10:03; Start 03/12/17 at 10:03; Stop 03/12/17 at 10:04; Status DC Fentanyl Citrate (fentaNYL INJ) 200 mcg STK-MED ONCE .ROUTE Last administered on 03/12/17 10:20; Start 03/12/17 at 10:20; Stop 03/12/17 at 10:21; Status DC Midazolam HCl (Versed Inj) 5 mg STK-MED ONCE .ROUTE Last administered on 10:21; Start 03/12/17 at 10:21; Stop 03/12/17 at 10:22; Status DC Potassium Chloride (KCl) 40 meq ONCE ONCE PO Last administered on 03/12/17 17 :56; Start 03/12/17 at 17:00; Stop 03/12/17 at 17:03; Status DC Pantoprazole Sodium (Protonix) 40 mg Q12HR PO Last administered on 03/13/17 20 :23; Start 03/12/17 at 21:00 Morphine Sulfate (Morphine Inj) 2 mg Q4HR PRN IV PUSH BREAKTHROUGH PAIN; Start 03/13/17 at 08:45 Urinary Catheter: No Vascular Central Line Catheter: No A/P Assessment and Plan Jaundice/liver masses/weight loss/abdominal pain/hyperbilirubinemia/ascites: - CT abdomen shows extensive hepatic masses consistent with primary or metastatic neoplasm. Multiple noncalcified pulmonary nodules with the largest located in the left lower lobe measuring 2.3 cm consistent with metastatic disease. Biliary ductal dilatation of indeterminate etiology. 11 mm splenic nodules which are indeterminate. 2.7 x 1.9 cm left adrenal mass which is indeterminate. - Ascites. s/p paracentesis. F/u on fluid studies which are pending. - GI following, appreciate their assistance. Recs are: "Palliative care was recommended if the bilirubin increases or if there are any signs of biliary sepsis, may consider ERCP versus PTCA supportive care" - MRCP shows extensive metastatic disease in the liver and likely the left lobe intrahepatic ductal dilatation due to associated mass effect. - Oncology also following, appreciate their assistance - s/p CT guided liver biopsy. Follow up on results. - CEA elevated 8427, AFP 1.6, CA19-9 3.1. suspecting metastatic colon cancer. - Patient presented with leukocytosis of 20.7 and a platelet count of 478. T bili of 22.2, AST 199, ALT 88. Alkaline phosphatase 640. Patient receive a dose of Zosyn in the emergency room. Continue IV Zosyn and Flagyl by mouth. Today T. Bili is 19.6 AST 198 ALT 80. Continue to monitor CMP, CBC and monitor Vitals. Anemia: 8.7 on admission, now 8.0. monitor closely and transfuse if <7.0. Patient admits to blood clots in his stools. hold aspirin. GI following. Hypokalemia: resolved Chest pain: Troponin 0.02 x 2. EKG no ST elevation or depression. atrial enlargement is noted on EKG. Chest pain is unchanged. Pt is known to Dr. Payne , will consult for further assistance. Continue pain control. I will check xray of ribs to r/o any bone lesions that could potentially cause pain as well since pt does have metastasis. blood clots per rectum: GI following. Hold ASA or any anticoagulation for now. BLE edema: Doppler US negative for DVT. Pancreatitis: Lipase level up to 1151. We'll hold off on giving IV fluids as patient already complaining of shortness of breath and has an EF of 30-35%. Clinically abdominal pain is improving. Hypertension:on lasix/spironolactone/enalapril/metoprolol/digoxin systolic CHF: Chest x-ray didn't show any pulm edema, BNP wnl. Suspect SOB is from ascites and increase abdominal girth. monitor. on lasix, digoxin, metoprolol and enalapril. DVT Proph: SCD. Avoid chemical anticoagulation due to anemia and pt passing blood clots. SP PARACENTESIS WILL CONSULT PALLIATIVE CARE Discharge Planning d/c pending further work-up and clinical improvement awaiting liver biopsies. monitor LFTs, T. Bili and pt becomes febrile may need ERCP versus PTCA supportive care As of now pt wishes to pursue aggressive management. GI and oncology following. Appreciate assistance from all consultants. PT AND OT Anselmo Kim DO Mar 14, 2017 09:57
[2017-03-14 10:21] LABS: BANDS 13 % (0-6); CORRECTED NUCLEATED RBC 1 /100 WBC (0-0); MYELOCYTES 1 % (0-0); NEUTROPHIL # MANUAL DIFF 19.3 TH/MM3 (1.8-7.7); PLATELET ESTIMATE SMEAR NORMAL (NORMAL); PLATELET MORPHOLOGY NORMAL (NORMAL); POLYS (SEG NEUTROPHILS) 80 % (16-70); SCAN/DIFF FINAL DIFF MANUAL; TARGET CELLS 2+ (NORMAL); WBC DIFF SAMPLE 100
[2017-03-14 12:00] VITALS: BP 102/57; PULSE 65; RESP 12; TEMP 98; O2SAT 100
[2017-03-14 16:00] VITALS: BP 102/55; PULSE 65; RESP 12; TEMP 98.1; O2SAT 100
[2017-03-14 20:00] VITALS: BP 96/47; PULSE 69; RESP 17; TEMP 97.8; O2SAT 99
[2017-03-14] MEDS: TAMSULOSIN HCL 0.4 MG CAP PO SCH (20:17)
[2017-03-15] VITALS (7 sets, daily range): BP systolic 91–111; BP diastolic 49–59; PULSE 61–80; RESP 16–21; TEMP 96.4–98.2; O2SAT 96–100
[2017-03-15] MEDS: PIPERACIL-TAZO 3.375 GM PREMIX 50 ML IV SCH ×4 (01:59→20:13)
[2017-03-15] MEDS: metroNIDAZOLE 500 MG TAB PO SCH ×3 (06:07→17:22)
[2017-03-15 06:09] LABS: AUTOMATED NEUTROPHIL # 16.2 TH/MM3 (1.8-7.7); BASOPHIL % 0.2 % (0.0-2.0); EOSINOPHIL % 0.2 % (0.0-4.0); HEMATOCRIT 23.5 % (39.0-51.0); LYMPH % 13.3 % (9.0-44.0); LYMPHOCYTE # 2.7 TH/MM3 (1.0-4.8); MEAN CELL VOLUME 94.2 FL (80.0-100.0); MEAN CORPUSCULAR HEMOGLOBIN 32.1 PG (27.0-34.0); MEAN CORPUSCULAR HGB CONC 34.1 % (32.0-36.0); MONO % 6.7 % (0.0-8.0); NEUT % 79.6 % (16.0-70.0); PLATELET COUNT 371 TH/MM3 (150-450); RED BLOOD COUNT 2.49 MIL/MM3 (4.50-5.90); RED CELL DISTRIBUTION WIDTH 20.1 % (11.6-17.2); WHITE BLOOD COUNT 20.3 TH/MM3 (4.0-11.0)
[2017-03-15 06:13] LABS: INTERNATIONAL NORMALIZED RATIO 1.3 RATIO
[2017-03-15 06:21] LABS: HEMO FLAGS AUTO DIFF
[2017-03-15 06:27] LABS: ALT (GPT) 70 U/L (12-78); ANION GAP 10 MEQ/L (5-15); AST (GOT) 186 U/L (15-37); BICARBONATE 20.4 MEQ/L (21.0-32.0); BLOOD UREA NITROGEN 18 MG/DL (7-18); CHLORIDE 104 MEQ/L (98-107); GLOMERULAR FILTRATION RATE 82 ML/MIN (>89); MAGNESIUM 1.9 MG/DL (1.5-2.5); POTASSIUM 3.5 MEQ/L (3.5-5.1); SODIUM (NA) 134 MEQ/L (136-145)
[2017-03-15 06:36] LABS: ALKALINE PHOSPHATASE 447 U/L (45-117); FREE T4 1.31 NG/DL (0.76-1.46); TOTAL BILIRUBIN ADULT 17.6 MG/DL (0.2-1.0)
[2017-03-15 07:36] LABS: BANDS 2 % (0-6); METAMYELOCYTES 1 % (0-1); MYELOCYTES 1 % (0-0); NEUTROPHIL # MANUAL DIFF 18.5 TH/MM3 (1.8-7.7); POLYS (SEG NEUTROPHILS) 87 % (16-70); WBC DIFF SAMPLE 100
[2017-03-15 07:37] LABS: SCAN/DIFF FINAL DIFF MANUAL; TARGET CELLS 2+ (NORMAL)
[2017-03-15] MEDS: DOCUSATE SODIUM 50 MG/SENNA 8.6 MG TAB PO SCH ×2 (09:00→20:16)
[2017-03-15] MEDS: SODIUM CHLORIDE 0.9% FLUSH 10 ML FLUSH IV FLUSH SCH ×2 (09:21→20:13)
[2017-03-15] MEDS: DIGOXIN 0.125 MG TAB PO SCH (09:21)
[2017-03-15] MEDS: SPIRONOLACTONE 25 MG TAB PO SCH ×2 (09:21→17:22)
[2017-03-15] MEDS: FUROSEMIDE 40 MG TAB PO SCH (09:22)
[2017-03-15] MEDS: PANTOPRAZOLE SOD 40 MG DELAYED RELEASE TAB PO SCH ×2 (09:22→20:16)
[2017-03-15] MEDS: METOPROLOL TARTRATE 50 MG TAB PO SCH ×2 (09:24→20:16)
[2017-03-15] MEDS: ENALAPRIL MALEATE 2.5 MG TAB PO SCH ×2 (09:24→20:16)
[2017-03-15] MEDS: ACETAMINOPHEN/HYDROcodone 325 MG/7.5 MG TAB PO PRN (09:25)
--- NOTE | 2017-03-15 09:33 | HHI.PR ---
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 STATUS AT THIS TIME DW RN AND PT PT AND OT TO CONSULT 03-15 TO SEE PALLIATIVE CARE TODAY HOPEFULLY NO NEW COMPLAINTS DW RN AND PT Objective Vitals Vital Signs Date Time Temp Pulse Resp B/P (MAP) Pulse Ox O2 Delivery O2 Flow Rate FiO2 03/15/17 09:23 80 16 100/56 (71) 100 03/15/17 04:00 97.8 61 17 91/49 (63) 99 03/15/17 00:30 20 03/15/17 00:00 97.4 67 16 106/58 (74) 100 03/14/17 20:00 97.8 69 17 96/47 (63) 99 03/14/17 16:00 98.1 65 12 102/55 (71) 100 03/14/17 12:00 98.0 65 12 102/57 (72) 100 I/O 03/14/17 03/14/17 03/14/17 03/15/17 03/15/17 03/15/17 07:00 15:00 23:00 07:00 15:00 23:00 Intake Total 240 ml 662 ml 830 ml 480 ml Output Total 1000 ml 300 ml 100 ml 450 ml Balance -760 ml 362 ml 730 ml 30 ml Intake Oral 240 ml 562 ml 480 ml 480 ml IV Total 100 ml 350 ml Output Urine Total 1000 ml 300 ml 100 ml 450 ml # Bowel Movements 1 2 2 Result Diagram: 03/15/17 0557 03/15/17 0548 Other Results Laboratory Tests Test 03/12/17 09:32 03/13/17 05:45 03/13/17 11:40 03/14/17 06:00 Body Fluid Amylase Source PERITONEAL FLUID Body Fluid Amylase 49 U/L Peritoneal Fluid WBC 100 /MM3 Peritoneal Fluid RBC 70 /MM3 Peritoneal Fluid Neutrophils 20 % Peritoneal Fluid Lymphocytes 56 % Peritoneal Fluid Monocytes 5 % Peritoneal Fluid Eosinophils 1 % Peritoneal Fluid Histiocytes 17 % Peritoneal Fluid Mesothelial Cells 1 % Peritoneal Fluid Comment Peritoneal Fluid Total Protein 1.9 GM/DL Peritoneal Fluid Albumin 0.6 G/DL Peritoneal Fluid LDH 187 U/L Peritoneal Fluid Glucose 80 MG/DL White Blood Count 18.9 TH/MM3 20.5 TH/MM3 Red Blood Count 2.46 MIL/MM3 2.37 MIL/MM3 Hemoglobin 8.0 GM/DL 7.8 GM/DL Hematocrit 23.3 % 22.4 % Mean Corpuscular Volume 94.8 FL 94.8 FL Mean Corpuscular Hemoglobin 32.4 PG 33.0 PG Mean Corpuscular Hemoglobin Concent 34.2 % 34.8 % Red Cell Distribution Width 20.7 % 21.1 % Platelet Count 366 TH/MM3 347 TH/MM3 Mean Platelet Volume 9.5 FL 10.0 FL CBC Comment AUTO DIFF AUTO DIFF Differential Total Cells Counted 100 100 Neutrophils % (Manual) 86 % 80 % Band Neutrophils % 3 % 13 % Lymphocytes % 5 % 2 % Monocytes % 5 % 4 % Neutrophils # (Manual) 17.0 TH/MM3 19.3 TH/MM3 Myelocytes 1 % 1 % Differential Comment FINAL DIFF MANUAL FINAL DIFF MANUAL Platelet Estimate NORMAL NORMAL Platelet Morphology Comment ENLARGED NORMAL Target Cells 2+ 2+ Blood Urea Nitrogen 19 MG/DL 17 MG/DL Creatinine 1.11 MG/DL 1.10 MG/DL Random Glucose 99 MG/DL 116 MG/DL Total Protein 5.6 GM/DL 5.3 GM/DL Albumin 1.5 GM/DL 1.5 GM/DL Calcium Level 8.2 MG/DL 7.9 MG/DL Alkaline Phosphatase 513 U/L 462 U/L Aspartate Amino Transf (AST/SGOT) 198 U/L 199 U/L Alanine Aminotransferase (ALT/SGPT) 80 U/L 77 U/L Total Bilirubin 19.6 MG/DL 18.0 MG/DL Sodium Level 135 MEQ/L 134 MEQ/L Potassium Level 3.8 MEQ/L 3.2 MEQ/L Chloride Level 104 MEQ/L 103 MEQ/L Carbon Dioxide Level 19.7 MEQ/L 20.0 MEQ/L Anion Gap 11 MEQ/L 11 MEQ/L Estimat Glomerular Filtration Rate 80 ML/MIN 81 ML/MIN Stool C. difficile Toxin (PCR) NEGATIVE Stl C. difficile Toxin Epiderm 027 PRESUMPTIVE NEGATIVE Neutrophils (%) (Auto) 75.8 % Lymphocytes (%) (Auto) 18.4 % Monocytes (%) (Auto) 5.4 % Eosinophils (%) (Auto) 0.2 % Basophils (%) (Auto) 0.2 % Neutrophils # (Auto) 15.5 TH/MM3 Lymphocytes # (Auto) 3.8 TH/MM3 Monocytes # (Auto) 1.1 TH/MM3 Eosinophils # (Auto) 0.1 TH/MM3 Basophils # (Auto) 0.0 TH/MM3 Nucleated Red Blood Cells 1 /100 WBC Magnesium Level 1.9 MG/DL Lipase 207 U/L Test 03/15/17 05:48 03/15/17 05:57 Blood Urea Nitrogen 18 MG/DL Creatinine 1.09 MG/DL Random Glucose 92 MG/DL Total Protein 5.6 GM/DL Albumin 1.5 GM/DL Calcium Level 8.1 MG/DL Phosphorus Level 1.8 MG/DL Magnesium Level 1.9 MG/DL Alkaline Phosphatase 447 U/L Aspartate Amino Transf (AST/SGOT) 186 U/L Alanine Aminotransferase (ALT/SGPT) 70 U/L Total Bilirubin 17.6 MG/DL Sodium Level 134 MEQ/L Potassium Level 3.5 MEQ/L Chloride Level 104 MEQ/L Carbon Dioxide Level 20.4 MEQ/L Anion Gap 10 MEQ/L Estimat Glomerular Filtration Rate 82 ML/MIN Free Thyroxine 1.31 NG/DL Thyroid Stimulating Hormone 3rd Gen 1.360 uIU/ML White Blood Count 20.3 TH/MM3 Red Blood Count 2.49 MIL/MM3 Hemoglobin 8.0 GM/DL Hematocrit 23.5 % Mean Corpuscular Volume 94.2 FL Mean Corpuscular Hemoglobin 32.1 PG Mean Corpuscular Hemoglobin Concent 34.1 % Red Cell Distribution Width 20.1 % Platelet Count 371 TH/MM3 Mean Platelet Volume 9.0 FL Neutrophils (%) (Auto) 79.6 % Lymphocytes (%) (Auto) 13.3 % Monocytes (%) (Auto) 6.7 % Eosinophils (%) (Auto) 0.2 % Basophils (%) (Auto) 0.2 % Neutrophils # (Auto) 16.2 TH/MM3 Lymphocytes # (Auto) 2.7 TH/MM3 Monocytes # (Auto) 1.4 TH/MM3 Eosinophils # (Auto) 0.0 TH/MM3 Basophils # (Auto) 0.0 TH/MM3 CBC Comment AUTO DIFF Differential Total Cells Counted 100 Neutrophils % (Manual) 87 % Band Neutrophils % 2 % Lymphocytes % 5 % Monocytes % 4 % Neutrophils # (Manual) 18.5 TH/MM3 Metamyelocytes 1 % Myelocytes 1 % Differential Comment FINAL DIFF MANUAL Target Cells 2+ Prothrombin Time 15.0 SEC Prothromb Time International Ratio 1.3 RATIO Ammonia LESS THAN 10 MCMOL/L Imaging Last Impressions Ribs X-Ray 03/13/17 0000 Signed Impressions: Service Date/Time: Monday, March 13, 2017 10:14 - CONCLUSION: No acute disease. Weston Westbrook MD Liver Biopsy CT 03/12/17 0757 Signed Impressions: Service Date/Time: Sunday, March 12, 2017 10:46 - CONCLUSION: Uncomplicated CT guided biopsy. Aguila Solano MD Cyst Biopsy Asp-Paracentesis US 03/12/17 0000 Signed Impressions: Service Date/Time: Sunday, March 12, 2017 09:16 - CONCLUSION: Uncomplicated ultrasound guided paracentesis. Aguila Solano MD Abdomen/Pelvis CT 03/11/17 1033 Signed Impressions: Service Date/Time: February 12:12 - CONCLUSION: 1. Extensive hepatic masses consistent with primary or metastatic neoplasm. 2. Multiple non-calcified pulmonary nodules with the largest located in the left lower lobe measuring 2.3 cm consistent with metastatic disease until proven otherwise. 3. Biliary ductal dilatation of indeterminate etiology. MRI of the abdomen with contrast and MRCP may be helpful for further evaluation if clinically indicated. 4. 11 mm splenic nodules which are indeterminate. 5. 2.7 x 1.9 cm left adrenal mass which is indeterminate. 6. Ascites. Aguila Solano MD Lower Extremity Ultrasound 03/11/17 0000 Signed Impressions: Service Date/Time: February 19:37 - CONCLUSION: No DVT. Weston Maya MD Cholangiopancreatography MRI 03/11/17 0000 Signed Impressions: Service Date/Time: February 18:17 - CONCLUSION: Extensive metastatic disease of the liver and I believe the left lobe intrahepatic ductal dilatation is due to associated mass effect. No intraductal stone or definite tumor demonstrated. Gallbladder and common bile duct are nondistended. Weston Maya MD Chest X-Ray 03/11/17 0000 Signed Impressions: Service Date/Time: February 10:49 - CONCLUSION: Normal examination. José Miguel Martinez MD Objective Remarks GENERAL: AWAKE ALERT AND ORIENTED x3 SKIN: Warm and dry.JAUNDICE HEAD: Atraumatic. Normocephalic. EYES: Pupils equal and round. POSITIVE SCLERAL ICTERUS. No injection or drainage. ENT: No nasal bleeding or discharge. Mucous membranes pink and moist. TONGUE MIDLINE NECK: Trachea midline. No JVD. SUPPLE CARDIOVASCULAR: Regular rate and rhythm. S1, S2 NO S3 OR S4 NO HEAVE OR THRILL RESPIRATORY: No accessory muscle use. Clear to auscultation. Breath sounds equal bilaterally. GASTROINTESTINAL: Abdomen soft, non-tender, nondistended. HEPATOMEGALY. LESS DISTENDED MUSCULOSKELETAL: Extremities without clubbing, cyanosis, PLUS 1 LE EDEMA BL. No obvious deformities. NEUROLOGICAL: Awake and alert. No obvious cranial nerve deficits. Motor grossly within normal limits. Five out of 5 muscle strength in the arms and legs. Normal speech. PSYCHIATRIC: Appropriate mood and affect; insight and judgment normal. Procedures PARACENTESIS AND LIVER BIOPSIES Medications and IVs Current Medications Sodium Chloride (NS Flush) 2 ml UNSCH PRN IV FLUSH FLUSH AFTER USING IV ACCESS ; Start 03/11/17 at 10:45; Stop 03/11/17 at 14:42; Status DC Iohexol (Omnipaque 350 Inj) 99 ml STK-MED ONCE IVCONTRAST Last administered on 03/11/17 12:21; Start 03/11/17 at 12:21; Stop 03/11/17 at 12:22; Status DC Piperacillin Sod/ Tazobactam Sod 50 ml @ 100 mls/hr ONCE ONCE IV Last administered on 03/11/17 12:56; Start 03/11/17 at 12:45; Stop 03/11/17 at 13:14 ; Status DC Sodium Chloride 1,000 ml @ 75 mls/hr [id number] IV Last administered on 04:22; Start 03/11/17 at 15:00; Stop 03/12/17 at 16:58; Status DC Sodium Chloride (NS Flush) 2 ml UNSCH PRN IV FLUSH FLUSH AFTER USING IV ACCESS ; Start 03/11/17 at 14:45 Sodium Chloride (NS Flush) 2 ml BID IV FLUSH Last administered on 03/15/17 09: 21; Start 03/11/17 at 21:00 Ondansetron HCl (Zofran Inj) 4 mg Q6H PRN IVP NAUSEA OR VOMITING; Start at 14:45 Naloxone HCl (Narcan Inj) 0.4 mg UNSCH PRN IV PUSH SEE LABEL COMMENTS; Start at 14:45 Senna/Docusate Sodium (Oxana-Colace) 1 tab BID PO Last administered on 08:20; Start 03/11/17 at 21:00 Magnesium Hydroxide (Milk Of Magnesia Liq) 30 ml Q12H PRN PO MILD - MODERATE CONSTIPATION; Start 03/11/17 at 14:45 Sennosides (Senokot) 17.2 mg Q12H PRN PO MODERATE - SEVERE CONSTIPATION; Start 03/11/17 at 14:45 Bisacodyl (Dulcolax Supp) 10 mg DAILY PRN RECTAL SEVERE CONSITIPATION; Start at 14:45 Lactulose (Lactulose Liq) 30 ml DAILY PRN PO SEVERE CONSITIPATION; Start at 14:45 Acetaminophen/ Hydrocodone Bitart (Elizabeth 5-325 Mg) 1 tab Q4H PRN PO PAIN SCALE 3 TO 6 Last administered on 03/12/17 21:08; Start 03/11/17 at 14:45 Acetaminophen/ Hydrocodone Bitart (Elizabeth 7.5-325 Mg) 1 tab Q6H PRN PO PAIN SCALE 7 TO 10 Last administered on 03/15/17 09:25; Start 03/11/17 at 14:45 Digoxin (Lanoxin) 0.125 mg DAILY PO Last administered on 03/15/17 09:21; Start 03/12/17 at 09:00 Enalapril Maleate (Vasotec) 2.5 mg BID PO Last administered on 03/15/17 09:24 ; Start 03/11/17 at 21:00 Furosemide (Lasix) 40 mg DAILY PO Last administered on 03/15/17 09:22; Start 03/12/17 at 09:00 Metoprolol Tartrate (Lopressor) 50 mg BID PO Last administered on 03/15/17 09: 24; Start 03/11/17 at 21:00 Spironolactone (Aldactone) 25 mg BIDPC PO Last administered on 03/15/17 09:21 ; Start 03/11/17 at 18:00 Tamsulosin HCl (Flomax) 0.4 mg HS PO Last administered on 03/14/17 20:17; Start 03/11/17 at 21:00 Piperacillin Sod/ Tazobactam Sod 50 ml @ 100 mls/hr Q6H IV Last administered on 03/15/17 09:20; Start 03/11/17 at 20:00 Metronidazole (Flagyl) 500 mg Q6HR PO Last administered on 03/15/17 06:07; Start 03/11/17 at 18:00 Gadodiamide (Omniscan Pf Inj) 15 ml STK-MED ONCE IVCONTRAST Last administered on 03/11/17 19:05; Start 03/11/17 at 19:05; Stop 03/11/17 at 19:06; Status DC Lidocaine HCl (Xylocaine 1% Inj) 20 ml STK-MED ONCE .ROUTE Last administered on 03/12/17 10:03; Start 03/12/17 at 10:03; Stop 03/12/17 at 10:04; Status DC Fentanyl Citrate (fentaNYL INJ) 200 mcg STK-MED ONCE .ROUTE Last administered on 03/12/17 10:20; Start 03/12/17 at 10:20; Stop 03/12/17 at 10:21; Status DC Midazolam HCl (Versed Inj) 5 mg STK-MED ONCE .ROUTE Last administered on 10:21; Start 03/12/17 at 10:21; Stop 03/12/17 at 10:22; Status DC Potassium Chloride (KCl) 40 meq ONCE ONCE PO Last administered on 03/12/17 17 :56; Start 03/12/17 at 17:00; Stop 03/12/17 at 17:03; Status DC Pantoprazole Sodium (Protonix) 40 mg Q12HR PO Last administered on 03/15/17 09 :22; Start 03/12/17 at 21:00 Morphine Sulfate (Morphine Inj) 2 mg Q4HR PRN IV PUSH BREAKTHROUGH PAIN; Start 03/13/17 at 08:45 Urinary Catheter: No Vascular Central Line Catheter: No A/P Assessment and Plan Jaundice/liver masses/weight loss/abdominal pain/hyperbilirubinemia/ascites: - CT abdomen shows extensive hepatic masses consistent with primary or metastatic neoplasm. Multiple noncalcified pulmonary nodules with the largest located in the left lower lobe measuring 2.3 cm consistent with metastatic disease. Biliary ductal dilatation of indeterminate etiology. 11 mm splenic nodules which are indeterminate. 2.7 x 1.9 cm left adrenal mass which is indeterminate. - Ascites. s/p paracentesis. F/u on fluid studies which are pending. - GI following, appreciate their assistance. Recs are: "Palliative care was recommended if the bilirubin increases or if there are any signs of biliary sepsis, may consider ERCP versus PTCA supportive care" - MRCP shows extensive metastatic disease in the liver and likely the left lobe intrahepatic ductal dilatation due to associated mass effect. - Oncology also following, appreciate their assistance - s/p CT guided liver biopsy. Follow up on results. - CEA elevated 8427, AFP 1.6, CA19-9 3.1. suspecting metastatic colon cancer. - Patient presented with leukocytosis of 20.7 and a platelet count of 478. T bili of 22.2, AST 199, ALT 88. Alkaline phosphatase 640. Patient receive a dose of Zosyn in the emergency room. Continue IV Zosyn and Flagyl by mouth. Today T. Bili is 19.6 AST 198 ALT 80. Continue to monitor CMP, CBC and monitor Vitals. Anemia: 8.7 on admission, now 8.0. monitor closely and transfuse if <7.0. Patient admits to blood clots in his stools. hold aspirin. GI following. Hypokalemia: resolved Chest pain: Troponin 0.02 x 2. EKG no ST elevation or depression. atrial enlargement is noted on EKG. Chest pain is unchanged. Pt is known to Dr. Payne , will consult for further assistance. Continue pain control. I will check xray of ribs to r/o any bone lesions that could potentially cause pain as well since pt does have metastasis. blood clots per rectum: GI following. Hold ASA or any anticoagulation for now. BLE edema: Doppler US negative for DVT. Pancreatitis: Lipase level up to 1151. We'll hold off on giving IV fluids as patient already complaining of shortness of breath and has an EF of 30-35%. Clinically abdominal pain is improving. Hypertension:on lasix/spironolactone/enalapril/metoprolol/digoxin systolic CHF: Chest x-ray didn't show any pulm edema, BNP wnl. Suspect SOB is from ascites and increase abdominal girth. monitor. on lasix, digoxin, metoprolol and enalapril. DVT Proph: SCD. Avoid chemical anticoagulation due to anemia and pt passing blood clots. SP PARACENTESIS WILL CONSULT PALLIATIVE CARE Discharge Planning d/c pending further work-up and clinical improvement awaiting liver biopsies. monitor LFTs, T. Bili and pt becomes febrile may need ERCP versus PTCA supportive care As of now pt wishes to pursue aggressive management. GI and oncology following. Appreciate assistance from all consultants. PT AND OT Anselmo Kim DO Mar 15, 2017 09:33
--- NOTE | 2017-03-15 10:08 | HHI.GIFU ---
Subjective Remarks Resting in bed. States he enjoyed his breakfast today. Only discomfort is his upper left axillary/chest/shoulder discomfort- states he has had this since he came in. No n/v. Diarrhea seems to be improving. Believes he had about 5 episodes yesterday, only 1 today. (Elaine Almeida) Objective Vitals I&O Vital Signs Date Time Temp Pulse Resp B/P (MAP) Pulse Ox O2 Delivery O2 Flow Rate FiO2 03/15/17 09:23 80 16 100/56 (71) 100 03/15/17 04:00 97.8 61 17 91/49 (63) 99 03/15/17 00:30 20 03/15/17 00:00 97.4 67 16 106/58 (74) 100 03/14/17 20:00 97.8 69 17 96/47 (63) 99 03/14/17 16:00 98.1 65 12 102/55 (71) 100 03/14/17 12:00 98.0 65 12 102/57 (72) 100 I/O 03/14/17 03/14/17 03/14/17 03/15/17 03/15/17 03/15/17 07:00 15:00 23:00 07:00 15:00 23:00 Intake Total 240 ml 662 ml 830 ml 480 ml Output Total 1000 ml 300 ml 100 ml 450 ml Balance -760 ml 362 ml 730 ml 30 ml Intake Oral 240 ml 562 ml 480 ml 480 ml IV Total 100 ml 350 ml Output Urine Total 1000 ml 300 ml 100 ml 450 ml # Bowel Movements 1 2 2 Laboratory Laboratory Tests Test 03/15/17 05:48 03/15/17 05:57 Blood Urea Nitrogen 18 Creatinine 1.09 Random Glucose 92 Total Protein 5.6 Albumin 1.5 Calcium Level 8.1 Phosphorus Level 1.8 Magnesium Level 1.9 Alkaline Phosphatase 447 Aspartate Amino Transf (AST/SGOT) 186 Alanine Aminotransferase (ALT/SGPT) 70 Total Bilirubin 17.6 Sodium Level 134 Potassium Level 3.5 Chloride Level 104 Carbon Dioxide Level 20.4 Anion Gap 10 Estimat Glomerular Filtration Rate 82 Free Thyroxine 1.31 Thyroid Stimulating Hormone 3rd Gen 1.360 White Blood Count 20.3 Red Blood Count 2.49 Hemoglobin 8.0 Hematocrit 23.5 Mean Corpuscular Volume 94.2 Mean Corpuscular Hemoglobin 32.1 Mean Corpuscular Hemoglobin Concent 34.1 Red Cell Distribution Width 20.1 Platelet Count 371 Mean Platelet Volume 9.0 Neutrophils (%) (Auto) 79.6 Lymphocytes (%) (Auto) 13.3 Monocytes (%) (Auto) 6.7 Eosinophils (%) (Auto) 0.2 Basophils (%) (Auto) 0.2 Neutrophils # (Auto) 16.2 Lymphocytes # (Auto) 2.7 Monocytes # (Auto) 1.4 Eosinophils # (Auto) 0.0 Basophils # (Auto) 0.0 CBC Comment AUTO DIFF Differential Total Cells Counted 100 Neutrophils % (Manual) 87 Band Neutrophils % 2 Lymphocytes % 5 Monocytes % 4 Neutrophils # (Manual) 18.5 Metamyelocytes 1 Myelocytes 1 Differential Comment FINAL DIFF MANUAL Target Cells 2+ Prothrombin Time 15.0 Prothromb Time International Ratio 1.3 Ammonia LESS THAN 10 Date/Time Source Procedure Growth Status 03/12/17 09:32 Fluid Peritoneal Fluid Gram Stain - Final Complete 03/12/17 09:32 Fluid Peritoneal Fluid Body Fluid Culture - Final NO GROWTH IN 72 HRS.--AEROBICALLY OR ... Complete Imaging Last Impressions Ribs X-Ray 03/13/17 0000 Signed Impressions: Service Date/Time: Monday, March 13, 2017 10:14 - CONCLUSION: No acute disease. Weston Westbrook MD Liver Biopsy CT 03/12/17 0757 Signed Impressions: Service Date/Time: Sunday, March 12, 2017 10:46 - CONCLUSION: Uncomplicated CT guided biopsy. Aguila Solano MD Cyst Biopsy Asp-Paracentesis US 03/12/17 0000 Signed Impressions: Service Date/Time: Sunday, March 12, 2017 09:16 - CONCLUSION: Uncomplicated ultrasound guided paracentesis. Aguila Solano MD Abdomen/Pelvis CT 03/11/17 1033 Signed Impressions: Service Date/Time: February 12:12 - CONCLUSION: 1. Extensive hepatic masses consistent with primary or metastatic neoplasm. 2. Multiple non-calcified pulmonary nodules with the largest located in the left lower lobe measuring 2.3 cm consistent with metastatic disease until proven otherwise. 3. Biliary ductal dilatation of indeterminate etiology. MRI of the abdomen with contrast and MRCP may be helpful for further evaluation if clinically indicated. 4. 11 mm splenic nodules which are indeterminate. 5. 2.7 x 1.9 cm left adrenal mass which is indeterminate. 6. Ascites. Aguila Solano MD Lower Extremity Ultrasound 03/11/17 0000 Signed Impressions: Service Date/Time: February 19:37 - CONCLUSION: No DVT. Weston Maya MD Cholangiopancreatography MRI 03/11/17 0000 Signed Impressions: Service Date/Time: February 18:17 - CONCLUSION: Extensive metastatic disease of the liver and I believe the left lobe intrahepatic ductal dilatation is due to associated mass effect. No intraductal stone or definite tumor demonstrated. Gallbladder and common bile duct are nondistended. Weston Maya MD Chest X-Ray 03/11/17 0000 Signed Impressions: Service Date/Time: February 10:49 - CONCLUSION: Normal examination. José Miguel Martinez MD Physical Exam HEENT: Normocephalic; atraumatic; + icterus CHEST: CTA CARDIAC: RRR ABDOMEN: Abdomen soft, distended, mild diffuse tenderness; hepatosplenomegaly; bowel sounds are present in all four quadrants. 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 (Elaine Almeida [facility]) Assessment and Plan Plan ASSESSMENT: - Extensive liver masses consistent with primary or metastatic neoplasm. CT Scan abdomen and pelvis (03/11/17)---> extensive hepatic masses consistent with primary or metastatic neoplasm. Multiple non-calcified pulmonary nodules with the largest located in the left lower lobe measuring 2.3 cm consistent with metastatic disease until proven otherwise. Biliary ductal dilatation of indeterminate etiology. MRI of the abdomen with contrast and MRCP may be helpful for further evaluation if clinically indicated. 11mm splenic nodules which are indeterminate. 2.7 x 1.9 cm left adrenal mass which is indeterminate. Ascites. MRCP ()---> Extensive metastatic disease of the liver and I believe the left lobe intrahepatic ductal dilatation is due to associated mass effect. No intraductal stone or definite tumor demonstrated. GB and CBD are nondistended. S/P liver biopsy, pathology pending. AFP 1.6, CEA 8427.8, Ca19.9 3.1. ? Metastatic colon cancer. Oncology following. Zosyn, Flagyl - Elevated LFTs secondary to above. no CBD dilatation on MRCP. T. Bili 17.6, AST 186, ALT 70, Alk Phosph 447. Liver bx pending. - Ascites. S/P US guided paracentesis (03/12/17)---> 3,200cc removed. CX with no WBC/Organisms seen. Cytology pending. Zosyn. Flagyl Spironolactone. - Leukocytosis. WBC 18.9. Flagyl, Zosyn. Is having significant diarrhea now- will check for Cdiff. - Diarrhea. Improving. 5 yesterday, 1 so far today. WBC 20.3. CDiff negative. Flagyl. - Lower GIB with hematochezia. Not currently having this, but has been having dark stool mixed with dark red clots at home. Of note his CEA was significantly elevated at 8427.8. Bx from liver mass pending. ? primary colon. - Anemia, acute blood loss. 8.0/23.5. - Abdominal pain, improved after paracentesis. - Elevated lipase. [address]/MRCP as above. Lipase 207. PLAN - MYCHAL - Await pathology from liver biopsy - Await cytology from peritoneal fluid - Zosyn/Flagyl - Spironolactone - Protonix - Monitor labs - Transfuse as necessary - Oncology following - Pt with poor prognosis. Pt would like to determine primary source and see what his treatment options to prolong his survival are. - ? Colonoscopy pending biopsy results - Further recommendations to follow based on results of above - Pt seen and examined by Dr. Fish and myself and this note is written on his behalf (Elaine Almeida) Physician Comments Patient seen and examined Agree with above Monitor labs Continue with current supportive care Not Much to add from a GI perspective at this point therefore we will sign off but if there is any need for us to pursue a colonoscopy please reconsult as needed (Von Fish MD) Elaine Almeida Mar 15, 2017 10:08 Von Fish MD Mar 15, 2017 21:00
--- NOTE | 2017-03-15 10:20 | PD.CONS ---
Consult Service Palliative Care Consult Requested By Dr Disla . Primary Care Physician Renzo Payne MD Reason for Consultation a. To assist with evaluation and management of symptoms including:dyspnea, malnutrition, pain b. To assist medical decision maker(s) with: better understanding of current medical conditions; weighing benefits/burdens of medical treatment options; making medical treatment decisions. HPI History of Present Illness This 66 yo patient presented to the ED on 03/11/17 with complaints of retrosternal chest pain, present for a few days. He also reported generalized abdominal pain and some shortness of breath especially with inspiration. Reported developing yellow discoloration of the eyes over the last day or 2. No vomiting or fever. Reports dark stool and red blood per rectum for several days. Denies alcohol abuse. * ED course: Troponin 0.02. BNP 59. Lipase 1151. Total bilirubin 22.2. LFTs elevated. EKG = sinus rhythm. CXR without acute process. Abdomen pelvis CT= extensive hepatic masses consistent with primary or metastatic neoplasm, multiple noncalcified pulmonary nodules with the largest located left lower lobe measuring 2.3 cm consistent with metastatic disease until proven otherwise. Biliary ductal dilation of indeterminate etiology. MRI/MRCP recommended. 11mm splenic nodules indeterminate. 2.7 x 1.9 cm left adrenal mass indeterminate. Ascites. Apparently liver findings are new. Patient was started on Zosyn. GI was consulted. Admitted for further evaluation and management. * Patient noted with bilateral leg edema some calf tenderness ultrasound to rule out DVT pending. * GI: Patient noted to have extensive metastatic disease in liver etiology of primary unknown. Obstructive jaundice present; most likely due to intrahepatic mass effect from metastatic disease, suspected metastatic lesion/possible colon cancer causing rectal bleed. Oncology is consulted, CT-guided liver biopsy planned. GI recommended palliative care. If bilirubin continues to increase or signs of biliary sepsis may consider ERCP versus PTCA. * Oncology consulted: Findings most consistent with malignancy heavily involving liver and causing visceral crisis. Request biopsy of hepatic lesions , possible ERCP versus percutaneous drainage of bile ducts for hyperbilirubinemia. 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 Treatment options would depend on primary unfortunately given the extent of liver involvement as well as comorbid medical conditions he is noted to be suboptimal candidate for any aggressive palliative systemic chemotherapy. Oncology also recommended palliative care. Patient wanted to pursue diagnosis before deciding on course. * 03/13 CT-guided biopsy of liver mass; path pending. CEA > 8000. Bilirubin still elevated 19.6. Patient reports improvement in abdominal pain. * 03/14 PT and OT consulted as patient with poor functional status, debility. Palliative care consulted to assist with clarification of goals of treatment. Pathology still pending. Patient vital signs stable, some hypotension systolic BP 90s. Patient seen in room, dual visit with Dale BAUMAN. He is seen in room, alert , oriented and pleasant. Upon exploration of hospitalization and conditions he initially tells me that the doctors really haven't told him what's going on however upon further exploration regarding identified liver lesions, possible widespread metastatic disease process he does indicate some discussion with oncologist regarding. At this time he is hopeful that they can get more information from biopsy to determine if there are any treatment possibilities, he is not ready to go with hospice as he would like to know more about his disease status. He is open to further discussions regarding hospice, possibly in the home setting when more information is known about cancer process. He is feeling okay today, fair appetite though he indicates he has never been a big eater. He does endorse weight loss 15-20 pounds in the past 4-6 months. He endorses abdominal discomfort for the past 4 months. He endorses his eyes "Turned yellow "maybe a few days ago. Function/Cognitive Trajectory Lives at home independently prior to this admission reported to still drive. 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 Past Family Social History Coded Allergies: No Known Allergies (Verified , 11/20/16) Past Medical History Hypertension Severe nonischemic cardiomyopathy with ejection fraction of 20% to 25% per echo September 2009 EF 20% -25%, ECHO 2017= EF 30-35%. Congestive heart failure Chronic deep venous insufficiency. Multivalvular disease with moderate to severe mitral regurgitation, moderate tricuspid regurgitation, moderate aortic insufficiency on 05/2013 echo . Past Surgical History No history of surgeries Reported Medications Flomax (Tamsulosin HCl) 0.4 Mg Cap 0.4 Mg PO HS Spironolactone 25 Mg Tab 25 Mg PO BIDPC Metoprolol Tartrate 50 Mg Tab 50 Mg PO BID Furosemide 40 Mg Tab 40 Mg PO DAILY Enalapril (Enalapril Maleate) 2.5 Mg Tab 2.5 Mg PO BID Digoxin 0.125 Mg Tab 0.125 Mg PO DAILY Aspirin DR (Aspirin) 81 Mg Tabdr 81 Mg PO DAILY . Current Medications Medications (Trade) Dose Ordered Sig/Wilder Route Start Time Stop Time Status Last Admin (NS Flush) 2 ml UNSCH PRN IV FLUSH 03/11/17 14:45 (NS Flush) 2 ml BID IV FLUSH 03/11/17 21:00 03/15/17 09:21 (Zofran Inj) 4 mg Q6H PRN IVP 03/11/17 14:45 (Narcan Inj) 0.4 mg UNSCH PRN IV PUSH 03/11/17 14:45 (Oxana-Colace) 1 tab BID PO 03/11/17 21:00 03/12/17 08:20 (Milk Of Magnesia Liq) 30 ml Q12H PRN PO 03/11/17 14:45 (Senokot) 17.2 mg Q12H PRN PO 03/11/17 14:45 (Dulcolax Supp) 10 mg DAILY PRN RECTAL 03/11/17 14:45 (Lactulose Liq) 30 ml DAILY PRN PO 03/11/17 14:45 ([place] 5-325 Mg) 1 tab Q4H PRN PO 03/11/17 14:45 03/12/17 21:08 ([place] 7.5-325 Mg) 1 tab Q6H PRN PO 03/11/17 14:45 03/15/17 09:25 (Lanoxin) 0.125 mg DAILY PO 03/12/17 09:00 03/15/17 09:21 (Vasotec) 2.5 mg BID PO 03/11/17 21:00 03/15/17 09:24 (Lasix) 40 mg DAILY PO 03/12/17 09:00 03/15/17 09:22 (Lopressor) 50 mg BID PO 03/11/17 21:00 03/15/17 09:24 (Aldactone) 25 mg BIDPC PO 03/11/17 18:00 03/15/17 09:21 (Flomax) 0.4 mg HS PO 03/11/17 21:00 03/14/17 20:17 Piperacillin Sod/ Tazobactam Sod 50 ml @ 100 mls/hr Q6H IV 03/11/17 20:00 03/15/17 09:20 (Flagyl) 500 mg Q6HR PO 03/11/17 18:00 03/15/17 06:07 (Protonix) 40 mg Q12HR PO 03/12/17 21:00 03/15/17 09:22 (Morphine Inj) 2 mg Q4HR PRN IV PUSH 03/13/17 08:45 Family History Mother from natural causes Father of an [place] Sister has hypertension Substance Use Tobacco: Smokes 30 years, records indicate heavy smoker starting his teenager Alcohol: Reports occasional beer, Prescription med abuse: None reported Illicits: None reported . 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 Adult child who lives out of the area, whom he has had no communication with. No children. Lives at home alone. Supported by a sister and brother. Born and raised in [facility]. Spiritual/Cultural Factors Believes in God, supported by his sister, does not want cooperative extension agent support at this time Living Will: Never completed Health Care Surrogate: Never completed Durable Power of Dining Car Server: Never completed Ethical and Legal Issues Pt appears capacitated to make decisions. He is considering designating his sister as healthcare surrogate but wishes to talk with her about this first. He is also supported by a local brother. He is . Does have an adult child somewhere that he does not have any communication with. . Physical Exam Vital Signs Date Time Temp Pulse Resp B/P (MAP) Pulse Ox O2 Delivery O2 Flow Rate FiO2 03/15/17 09:23 80 16 100/56 (71) 100 03/15/17 04:00 97.8 61 17 91/49 (63) 99 03/15/17 00:30 20 03/15/17 00:00 97.4 67 16 106/58 (74) 100 03/14/17 20:00 97.8 69 17 96/47 (63) 99 03/14/17 16:00 98.1 65 12 102/55 (71) 100 03/14/17 12:00 98.0 65 12 102/57 (72) 100 Exam CONSTITUTIONAL/GENERAL: This is a frail, ill-appearing patient TUBES/LINES/DRAINS:+ Peripheral IV right upper extremity SKIN: No jaundice, rashes, or lesions. . No wounds seen anteriorly. Skin temperature appropriate. Not diaphoretic. HEAD: Atraumatic. Normocephalic. EYES: Pupils equal and round and reactive. Extraocular motions intact.+ scleral icterus. No injection or drainage. Fundi not examined. ENT: Hearing grossly normal. Nose without bleeding or purulent drainage. Throat without visible erythema, exudates, masses, or lesions. NECK: Trachea midline. Supple, nontender. No palpable thyroid enlargement or nodularity. CARDIOVASCULAR: Regular rate and rhythm without murmurs. No JVD. Peripheral pulses symmetric. Trace pedal edema. RESPIRATORY/CHEST: Symmetric, unlabored respirations. On room air. Clear to auscultation. Breath sounds equal bilaterally. GASTROINTESTINAL: Abdomen firm, very tender, distended. limited palpation due to tenderness. Bowel sounds present. GENITOURINARY: Without palpable bladder distension. urinal at bedside w dark orange brown urine noted MUSCULOSKELETAL: Extremities without clubbing, cyanosis, or edema. No joint tenderness or effusion noted. No mottling or clubbing. LYMPHATICS: No palpable cervical or supraclavicular adenopathy. NEUROLOGICAL: Awake and alert. oriented x3, appropriate. Has simple insight. Cognitively sharp. Moves all 4 extremities. PSYCHIATRIC: No obvious anxiety/depression. no apparent hallucinations or other psychotic thought process. Diagnostic Tests Laboratory Laboratory Tests Test 03/13/17 05:45 03/13/17 11:40 03/14/17 06:00 03/15/17 05:48 White Blood Count 18.9 TH/MM3 (4.0-11.0) 20.5 TH/MM3 (4.0-11.0) Red Blood Count 2.46 MIL/MM3 (4.50-5.90) 2.37 MIL/MM3 (4.50-5.90) Hemoglobin 8.0 GM/DL (13.0-17.0) 7.8 GM/DL (13.0-17.0) Hematocrit 23.3 % (39.0-51.0) 22.4 % (39.0-51.0) Mean Corpuscular Volume 94.8 FL (80.0-100.0) 94.8 FL (80.0-100.0) Mean Corpuscular Hemoglobin 32.4 PG (27.0-34.0) 33.0 PG (27.0-34.0) Mean Corpuscular Hemoglobin Concent 34.2 % (32.0-36.0) 34.8 % (32.0-36.0) Red Cell Distribution Width 20.7 % (11.6-17.2) 21.1 % (11.6-17.2) Platelet Count 366 TH/MM3 (150-450) 347 TH/MM3 (150-450) Mean Platelet Volume 9.5 FL (7.0-11.0) 10.0 FL (7.0-11.0) CBC Comment AUTO DIFF AUTO DIFF Differential Total Cells Counted 100 100 Neutrophils % (Manual) 86 % (16-70) 80 % (16-70) Band Neutrophils % 3 % (0-6) 13 % (0-6) Lymphocytes % 5 % (9-44) 2 % (9-44) Monocytes % 5 % (0-8) 4 % (0-8) Neutrophils # (Manual) 17.0 TH/MM3 (1.8-7.7) 19.3 TH/MM3 (1.8-7.7) Myelocytes 1 % (0-0) 1 % (0-0) Differential Comment FINAL DIFF MANUAL FINAL DIFF MANUAL Platelet Estimate NORMAL (NORMAL) NORMAL (NORMAL) Platelet Morphology Comment ENLARGED (NORMAL) NORMAL (NORMAL) Target Cells 2+ (NORMAL) 2+ (NORMAL) Blood Urea Nitrogen 19 MG/DL (7-18) 17 MG/DL (7-18) 18 MG/DL (7-18) Creatinine 1.11 MG/DL (0.60-1.30) 1.10 MG/DL (0.60-1.30) 1.09 MG/DL (0.60-1.30) Random Glucose 99 MG/DL (74-106) 116 MG/DL (74-106) 92 MG/DL (74-106) Total Protein 5.6 GM/DL (6.4-8.2) 5.3 GM/DL (6.4-8.2) 5.6 GM/DL (6.4-8.2) Albumin 1.5 GM/DL (3.4-5.0) 1.5 GM/DL (3.4-5.0) 1.5 GM/DL (3.4-5.0) Calcium Level 8.2 MG/DL (8.5-10.1) 7.9 MG/DL (8.5-10.1) 8.1 MG/DL (8.5-10.1) Alkaline Phosphatase 513 U/L (45-117) 462 U/L (45-117) 447 U/L (45-117) Aspartate Amino Transf (AST/SGOT) 198 U/L (15-37) 199 U/L (15-37) 186 U/L (15-37) Alanine Aminotransferase (ALT/SGPT) 80 U/L (12-78) 77 U/L (12-78) 70 U/L (12-78) Total Bilirubin 19.6 MG/DL (0.2-1.0) 18.0 MG/DL (0.2-1.0) 17.6 MG/DL (0.2-1.0) Sodium Level 135 MEQ/L (136-145) 134 MEQ/L (136-145) 134 MEQ/L (136-145) Potassium Level 3.8 MEQ/L (3.5-5.1) 3.2 MEQ/L (3.5-5.1) 3.5 MEQ/L (3.5-5.1) Chloride Level 104 MEQ/L (98-107) 103 MEQ/L (98-107) 104 MEQ/L (98-107) Carbon Dioxide Level 19.7 MEQ/L (21.0-32.0) 20.0 MEQ/L (21.0-32.0) 20.4 MEQ/L (21.0-32.0) Anion Gap 11 MEQ/L (5-15) 11 MEQ/L (5-15) 10 MEQ/L (5-15) Estimat Glomerular Filtration Rate 80 ML/MIN (>89) 81 ML/MIN (>89) 82 ML/MIN (>89) Stool C. difficile Toxin (PCR) NEGATIVE (NEGATIVE) Stl C. difficile Toxin Epiderm 027 PRESUMPTIVE NEGATIVE Neutrophils (%) (Auto) 75.8 % (16.0-70.0) Lymphocytes (%) (Auto) 18.4 % (9.0-44.0) Monocytes (%) (Auto) 5.4 % (0.0-8.0) Eosinophils (%) (Auto) 0.2 % (0.0-4.0) Basophils (%) (Auto) 0.2 % (0.0-2.0) Neutrophils # (Auto) 15.5 TH/MM3 (1.8-7.7) Lymphocytes # (Auto) 3.8 TH/MM3 (1.0-4.8) Monocytes # (Auto) 1.1 TH/MM3 (0-0.9) Eosinophils # (Auto) 0.1 TH/MM3 (0-0.4) Basophils # (Auto) 0.0 TH/MM3 (0-0.2) Nucleated Red Blood Cells 1 /100 WBC (0-0) Magnesium Level 1.9 MG/DL (1.5-2.5) 1.9 MG/DL (1.5-2.5) Lipase 207 U/L (73-393) Phosphorus Level 1.8 MG/DL (2.5-4.9) Free Thyroxine 1.31 NG/DL (0.76-1.46) Thyroid Stimulating Hormone 3rd Gen 1.360 uIU/ML (0.358-3.740) Test 03/15/17 05:57 White Blood Count 20.3 TH/MM3 (4.0-11.0) Red Blood Count 2.49 MIL/MM3 (4.50-5.90) Hemoglobin 8.0 GM/DL (13.0-17.0) Hematocrit 23.5 % (39.0-51.0) Mean Corpuscular Volume 94.2 FL (80.0-100.0) Mean Corpuscular Hemoglobin 32.1 PG (27.0-34.0) Mean Corpuscular Hemoglobin Concent 34.1 % (32.0-36.0) Red Cell Distribution Width 20.1 % (11.6-17.2) Platelet Count 371 TH/MM3 (150-450) Mean Platelet Volume 9.0 FL (7.0-11.0) Neutrophils (%) (Auto) 79.6 % (16.0-70.0) Lymphocytes (%) (Auto) 13.3 % (9.0-44.0) Monocytes (%) (Auto) 6.7 % (0.0-8.0) Eosinophils (%) (Auto) 0.2 % (0.0-4.0) Basophils (%) (Auto) 0.2 % (0.0-2.0) Neutrophils # (Auto) 16.2 TH/MM3 (1.8-7.7) Lymphocytes # (Auto) 2.7 TH/MM3 (1.0-4.8) Monocytes # (Auto) 1.4 TH/MM3 (0-0.9) Eosinophils # (Auto) 0.0 TH/MM3 (0-0.4) Basophils # (Auto) 0.0 TH/MM3 (0-0.2) CBC Comment AUTO DIFF Differential Total Cells Counted 100 Neutrophils % (Manual) 87 % (16-70) Band Neutrophils % 2 % (0-6) Lymphocytes % 5 % (9-44) Monocytes % 4 % (0-8) Neutrophils # (Manual) 18.5 TH/MM3 (1.8-7.7) Metamyelocytes 1 % (0-1) Myelocytes 1 % (0-0) Differential Comment FINAL DIFF MANUAL Target Cells 2+ (NORMAL) Prothrombin Time 15.0 SEC (9.8-11.6) Prothromb Time International Ratio 1.3 RATIO Ammonia LESS THAN 10 MCMOL/L Result Diagram: 03/15/17 0557 03/15/17 0548 Microbiology Microbiology Date/Time Source Procedure Growth Status 03/12/17 09:32 Fluid Peritoneal Fluid Gram Stain - Final Complete 03/12/17 09:32 Fluid Peritoneal Fluid Body Fluid Culture - Final NO GROWTH IN 72 HRS.--AEROBICALLY OR ... Complete Imaging Last Impressions Ribs X-Ray 03/13/17 0000 Signed Impressions: Service Date/Time: Monday, March 13, 2017 10:14 - CONCLUSION: No acute disease. Weston Westbrook MD Liver Biopsy CT 03/12/17 0757 Signed Impressions: Service Date/Time: Sunday, March 12, 2017 10:46 - CONCLUSION: Uncomplicated CT guided biopsy. Aguila Solano MD Cyst Biopsy Asp-Paracentesis US 03/12/17 0000 Signed Impressions: Service Date/Time: Sunday, March 12, 2017 09:16 - CONCLUSION: Uncomplicated ultrasound guided paracentesis. Aguila Solano MD Abdomen/Pelvis CT 03/11/17 1033 Signed Impressions: Service Date/Time: February 12:12 - CONCLUSION: 1. Extensive hepatic masses consistent with primary or metastatic neoplasm. 2. Multiple non-calcified pulmonary nodules with the largest located in the left lower lobe measuring 2.3 cm consistent with metastatic disease until proven otherwise. 3. Biliary ductal dilatation of indeterminate etiology. MRI of the abdomen with contrast and MRCP may be helpful for further evaluation if clinically indicated. 4. 11 mm splenic nodules which are indeterminate. 5. 2.7 x 1.9 cm left adrenal mass which is indeterminate. 6. Ascites. Aguila Solano MD Lower Extremity Ultrasound 03/11/17 0000 Signed Impressions: Service Date/Time: February 19:37 - CONCLUSION: No DVT. Weston Maya MD Cholangiopancreatography MRI 03/11/17 0000 Signed Impressions: Service Date/Time: February 18:17 - CONCLUSION: Extensive metastatic disease of the liver and I believe the left lobe intrahepatic ductal dilatation is due to associated mass effect. No intraductal stone or definite tumor demonstrated. Gallbladder and common bile duct are nondistended. Weston Maya MD Chest X-Ray 03/11/17 0000 Signed Impressions: Service Date/Time: February 10:49 - CONCLUSION: Normal examination. José Miguel Martinez MD Patient/Family Conference Present at Family Conference: pt Family Conference Time (mins): 25 Family Conference Location: Bedside Issues Discussed: Met with patient at bedside, discussion included: * Palliative care role, purpose, approach * Additional medical, psychosocial, and spiritual history * Patients general health, functional status, and cognitive changes in the months leading up to the current hospitalization * Patient/family understanding of the current medical problems * Patient/family understanding of prognosis * CODE STATUS-- elects full code * Legal decision maker/advance directives; he is considering making his sister healthcare surrogate wishes to discuss with her first. Forms left at bedside, discussed with primary nurse to assist if he desires to do later * Patients goals of care as best understood from advance directives and/or conversations and/or values * Current medical treatment options and benefits/burdens of those options * Likely scenarios comparing ongoing aggressive care with a transition to comfort measures only-brief review of hospice role in services provided for end -stage disease processes. * Questions answered to the best of my ability * Palliative care contact information provided . Patient seems to have some limited insight to possible disease process/simple understanding. For right now he wishes to pursue biopsy for a confirmative diagnoses, to try to find out what his treatment options might be. He is open to ongoing discussions regarding treatment options and the possibility of hospice if there are no treatment options. I offered to call his sister to provide an update, he indicates that he has been in touch with her and is keeping her informed. Assessment and Plan Disease Oriented Problem List: (1) Congestive heart failure (2) Hypertension (3) Cardiomyopathy (4) LFT elevation (5) Hyperbilirubinemia (6) Pancreatitis (7) Liver masses Symptom Scale: (1) Pain (2) Malnutrition (3) Dyspnea Pertinent Non-Medical Issues Psychosocial: Spiritual: Legal:Pt appears capacitated to make decisions. He is considering designating his sister as healthcare surrogate but wishes to talk with her about this first. He is also supported by a local brother. He is . Does have an adult child somewhere that he does not have any communication with. Ethical issues impacting care: Important Contacts Sister Edita Polk [phone] Friend Bala Maxwell [phone] Prognosis This patient was admitted for abdominal pain, chest pain. He has new findings of widespread lesions throughout liver, lung, possible colon involvement. Presumed malignancy, though primary not known. Due to medical comorbidities, frail status not likely to be a candidate for systemic treatment. Appropriate for hospice if goals were compatible. Code Status: Full Code Plan * Legal decision maker:Pt appears capacitated to make decisions. He is considering designating his sister as healthcare surrogate but wishes to talk with her about this first. He is also supported by a local brother. He is . Does have an adult child somewhere that he does not have any communication with. * Goals: Patient seems to have some limited insight to possible disease process. For right now he wishes to pursue biopsy for a confirmative diagnoses , to try to find out what his treatment options might be. He is open to ongoing discussions regarding treatment options and the possibility of hospice if there are no treatment options. * CODE STATUS: Full code * SYMPTOMS: --Chest [id number] chest pain which radiates down and around back. Indicates a little better during hospital course but pretty much constant, sharp at times. Some relief when using oral pain medicine does not wish to use other pain medications. Concern for increasing pain medication given hypotension some systolic BPs in the 90s. If goals were comfort oriented could consider up titrating. Troponin less than 0.02. EKG sinus rhythm. Patient with known history of CHF, per records has previously been recommended for pacemaker, cardiovascular intervention which the patient refused. --Abdominal pain- 2/2 metastatic disease process in liver, ?primary etiology of malignancy. LFTs, bilirubin elevated. Patient endorses pain 7/10 little better during hospital course however still present. Again some concern and caution regarding increasing pain medication due to hypotension, if goals were comfort oriented could consider up titration. --Dyspnea-patient does not appear short of breath but subjectively endorses feeling short of breath even during conversation. This may be secondary to abdominal pressure and disease process. Lungs are clear and O2 sats have been 99-100%. Last CXR with no acute process identified. Will continue to evaluate. --Malnutrition-endorse appetite fair, never a big eater. Weight loss 15-20 pounds in the past 6 months . Albumin 1.5. If goals aggressive may benefit from nutrition supplement. * Palliative care will continue to follow during hospital course as condition evolves, to assist patient/decision-maker with understanding of medical conditions, weighing benefits/burdens of treatment options, for clarification of goals of treatment. Additionally will assist with any symptoms of palliative concern Time Spent Total Floor Time (mins): 60 Thank you for the opportunity to participate in the care of Mr. Nolasco. Attestation To help prompt me to consider important information that might be impacting today's encounter and assessment, information from prior notes written by myself or my colleagues may have been "brought forward" into today's note. My signature on this note, however, is an attestation that I personally performed the exam, history, and/or decision-making noted today, and, unless otherwise indicated, the interactions with patient, family, and staff as well as the review of records all occurred today. I also attest that the listed assessment and stated plan reflect my best clinical judgment today based on the combination of historical information, prior notes, and today's exam/ interactions. When time spent is documented, it refers only to time spent today by the signer, or if indicated, combined time spent today by collaborating physician/nurse practitioner. Abeba Evans Mar 15, 2017 10:20
--- NOTE | 2017-03-15 10:57 | PD.ONC.PN ---
Subjective Subjective Remarks Afebrile overnight. Patient resting in room in nad. States he slept well last night. Denies pain. Objective Data Date Time Temp Pulse Resp B/P (MAP) Pulse Ox O2 Delivery O2 Flow Rate FiO2 03/15/17 09:23 80 16 100/56 (71) 100 03/15/17 08:00 97.8 76 21 99/55 (70) 96 03/15/17 04:00 97.8 61 17 91/49 (63) 99 03/15/17 00:30 20 03/15/17 00:00 97.4 67 16 106/58 (74) 100 03/14/17 20:00 97.8 69 17 96/47 (63) 99 03/14/17 16:00 98.1 65 12 102/55 (71) 100 03/14/17 12:00 98.0 65 12 102/57 (72) 100 03/15/17 03/15/17 03/15/17 07:00 15:00 23:00 Intake Total 480 ml 50 ml Output Total 450 ml Balance 30 ml 50 ml Result Diagram: 03/15/17 0557 03/15/17 0548 Laboratory Results Laboratory Tests Test 03/15/17 05:48 03/15/17 05:57 Blood Urea Nitrogen 18 MG/DL Creatinine 1.09 MG/DL Random Glucose 92 MG/DL Total Protein 5.6 GM/DL Albumin 1.5 GM/DL Calcium Level 8.1 MG/DL Phosphorus Level 1.8 MG/DL Magnesium Level 1.9 MG/DL Alkaline Phosphatase 447 U/L Aspartate Amino Transf (AST/SGOT) 186 U/L Alanine Aminotransferase (ALT/SGPT) 70 U/L Total Bilirubin 17.6 MG/DL Sodium Level 134 MEQ/L Potassium Level 3.5 MEQ/L Chloride Level 104 MEQ/L Carbon Dioxide Level 20.4 MEQ/L Anion Gap 10 MEQ/L Estimat Glomerular Filtration Rate 82 ML/MIN Free Thyroxine 1.31 NG/DL Thyroid Stimulating Hormone 3rd Gen 1.360 uIU/ML White Blood Count 20.3 TH/MM3 Red Blood Count 2.49 MIL/MM3 Hemoglobin 8.0 GM/DL Hematocrit 23.5 % Mean Corpuscular Volume 94.2 FL Mean Corpuscular Hemoglobin 32.1 PG Mean Corpuscular Hemoglobin Concent 34.1 % Red Cell Distribution Width 20.1 % Platelet Count 371 TH/MM3 Mean Platelet Volume 9.0 FL Neutrophils (%) (Auto) 79.6 % Lymphocytes (%) (Auto) 13.3 % Monocytes (%) (Auto) 6.7 % Eosinophils (%) (Auto) 0.2 % Basophils (%) (Auto) 0.2 % Neutrophils # (Auto) 16.2 TH/MM3 Lymphocytes # (Auto) 2.7 TH/MM3 Monocytes # (Auto) 1.4 TH/MM3 Eosinophils # (Auto) 0.0 TH/MM3 Basophils # (Auto) 0.0 TH/MM3 CBC Comment AUTO DIFF Differential Total Cells Counted 100 Neutrophils % (Manual) 87 % Band Neutrophils % 2 % Lymphocytes % 5 % Monocytes % 4 % Neutrophils # (Manual) 18.5 TH/MM3 Metamyelocytes 1 % Myelocytes 1 % Differential Comment FINAL DIFF MANUAL Target Cells 2+ Prothrombin Time 15.0 SEC Prothromb Time International Ratio 1.3 RATIO Ammonia LESS THAN 10 MCMOL/L Administered Medications Medications (Trade) Dose Ordered Sig/Wilder Route PRN Reason Start Time Stop Time Status Last Admin Dose Admin Sodium Chloride (NS Flush) 2 ml BID IV FLUSH 03/11/17 21:00 03/15/17 09:21 Senna/Docusate Sodium (Oxana-Colace) 1 tab BID PO 03/11/17 21:00 03/12/17 08:20 Acetaminophen/ Hydrocodone Bitart ([place] 5-325 Mg) 1 tab Q4H PRN PO PAIN SCALE 3 TO 6 03/11/17 14:45 03/12/17 21:08 Acetaminophen/ Hydrocodone Bitart ([place] 7.5-325 Mg) 1 tab Q6H PRN PO PAIN SCALE 7 TO 10 03/11/17 14:45 03/15/17 09:25 Digoxin (Lanoxin) 0.125 mg DAILY PO 03/12/17 09:00 03/15/17 09:21 Enalapril Maleate (Vasotec) 2.5 mg BID PO 03/11/17 21:00 03/15/17 09:24 Furosemide (Lasix) 40 mg DAILY PO 03/12/17 09:00 03/15/17 09:22 Metoprolol Tartrate (Lopressor) 50 mg BID PO 03/11/17 21:00 03/15/17 09:24 Spironolactone (Aldactone) 25 mg BIDPC PO 03/11/17 18:00 03/15/17 09:21 Tamsulosin HCl (Flomax) 0.4 mg HS PO 03/11/17 21:00 03/14/17 20:17 Piperacillin Sod/ Tazobactam Sod 50 ml @ 100 mls/hr Q6H IV 03/11/17 20:00 03/15/17 09:20 Metronidazole (Flagyl) 500 mg Q6HR PO 03/11/17 18:00 03/15/17 06:07 Pantoprazole Sodium (Protonix) 40 mg Q12HR PO 03/12/17 21:00 03/15/17 09:22 Objective Remarks GENERAL: Middle aged male sitting up in bed in nad. SKIN: Warm and dry. HEAD: Normocephalic. EYES: ++ scleral icterus. No injection or drainage. NECK: Supple, trachea midline. CARDIOVASCULAR: Regular rate and rhythm RESPIRATORY: Breath sounds equal bilaterally. No accessory muscle use. GASTROINTESTINAL: Abdomen distended. non-tender. EXTREMITIES: No cyanosis NEUROLOGICAL: moving all extremities. aox3. normal speech. Assessment/Plan Problem List: (1) Liver masses ICD Codes: R16.0 - Hepatomegaly, not elsewhere classified Status: Acute Plan: -- Extensive replacement of the liver with malignancy with resultant visceral crisis: --s/p CT-guided biopsy of liver jazmin 03/13. pathology pending. CEA level greater than 8000. --likely has metastatic colon cancer given his previous history of hematochezia. --Hyperbilirubinemia is likely related to hepatic dysfunction due to the liver being heavily involved with malignancy. --patient desires to pursue aggressive therapeutic interventions. --Dr. Vasquez would like to await final pathology before talking to him about potential treatment options. --Dr. Vasquez has already talked to him about the possibility that the most reasonable treatment option may be hospice/palliative care. Assessment Mr. Nolasco is a very pleasant 66-year-old male who presents to the hospital with progressive abdominal pain and distension as well as jaundice. Imaging studies confirmed the presence of extensive and diffusely present masses in all quadrants and segments of the liver. There is intrahepatic biliary ductal dilatation and pulmonary nodules noted on imaging studies. His total bilirubin level is 22, his alkaline phosphatase, AST and ALT levels are all elevated. These findings are most consistent with a malignancy which is heavily involving the liver and is quite frankly causing a visceral crisis. The patient does report having a several week history of blood clots in the stool, he also reports abdominal distension pain and yellow jaundice. Significant medical comorbid conditions include ischemic cardiomyopathy with an LVEF ranging between 25 and 35%. He also has recent physical debility. Plan 1. monitor bilirubin 2. consult palliative care--we are still awaiting pathology but patient is not a great candidate for any type of treatment. Shu Villegas Mar 15, 2017 10:57
[2017-03-15 15:02] LABS: HEMOGLOBIN A1a 1.2 %; HEMOGLOBIN A1b 1.2 %; HEMOGLOBIN Ao 88.9 %; HEMOGLOBIN LA1C 1.6 %; HEMOGLOBIN P3 3.9 %
[2017-03-15] MEDS: DOCUSATE SODIUM 100 MG CAP PO SCH (17:22)
[2017-03-15] MEDS: TAMSULOSIN HCL 0.4 MG CAP PO SCH (20:16)
[2017-03-15] MEDS: SODIUM CHLORIDE 0.9% FLUSH 10 ML FLUSH IV FLUSH PRN (21:31)
[2017-03-16] VITALS (8 sets, daily range): BP systolic 91–112; BP diastolic 50–63; PULSE 62–78; RESP 17–18; TEMP 96.7–97.8; O2SAT 94–100
[2017-03-16] MEDS: metroNIDAZOLE 500 MG TAB PO SCH ×4 (00:44→18:09)
[2017-03-16] MEDS: SODIUM CHLORIDE 0.9% FLUSH 10 ML FLUSH IV FLUSH PRN ×3 (02:30→22:05)
[2017-03-16] MEDS: PIPERACIL-TAZO 3.375 GM PREMIX 50 ML IV SCH ×4 (02:30→20:58)
[2017-03-16] MEDS: PANTOPRAZOLE SOD 40 MG DELAYED RELEASE TAB PO SCH ×2 (08:05→21:00)
[2017-03-16] MEDS: DOCUSATE SODIUM 100 MG CAP PO SCH ×3 (08:05→18:09)
[2017-03-16] MEDS: METOPROLOL TARTRATE 50 MG TAB PO SCH ×2 (08:05→22:02)
[2017-03-16] MEDS: SODIUM CHLORIDE 0.9% FLUSH 10 ML FLUSH IV FLUSH SCH ×2 (08:06→20:58)
[2017-03-16] MEDS: SPIRONOLACTONE 25 MG TAB PO SCH ×2 (08:06→18:09)
[2017-03-16] MEDS: DOCUSATE SODIUM 50 MG/SENNA 8.6 MG TAB PO SCH ×2 (08:07→21:00)
[2017-03-16 08:44] LABS: BASOPHIL % 0.2 % (0.0-2.0); EOSINOPHIL % 0.2 % (0.0-4.0); HEMATOCRIT 22.6 % (39.0-51.0); LYMPH % 4.1 % (9.0-44.0); LYMPHOCYTE # 0.9 TH/MM3 (1.0-4.8); MEAN CORPUSCULAR HEMOGLOBIN 32.3 PG (27.0-34.0); MONO % 7.3 % (0.0-8.0); NEUT % 88.2 % (16.0-70.0); PLATELET COUNT 346 TH/MM3 (150-450); RED BLOOD COUNT 2.38 MIL/MM3 (4.50-5.90); RED CELL DISTRIBUTION WIDTH 21.3 % (11.6-17.2); WHITE BLOOD COUNT 21.6 TH/MM3 (4.0-11.0)
[2017-03-16 08:47] LABS: HEMO FLAGS AUTO DIFF
--- NOTE | 2017-03-16 08:57 | HHI.PR ---
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 STATUS AT THIS TIME DW RN AND PT PT AND OT TO CONSULT 03-15 TO SEE PALLIATIVE CARE TODAY HOPEFULLY NO NEW COMPLAINTS DW RN AND PT 03-16 PATIENT IS STILL A FULL CODE DOES NOT WANT TO BE A DNR YET PATHOLOGY IS PENDING STILL APPEARS TO WANT AGGRESSIVE TREATMENT CONTINUE CURRENT PAIN CONTROL MEDS ADJUSTED Objective Vitals Vital Signs Date Time Temp Pulse Resp B/P (MAP) Pulse Ox O2 Delivery O2 Flow Rate FiO2 03/16/17 08:00 97.8 76 18 112/62 (79) 99 03/16/17 04:00 96.7 74 17 91/53 (66) 100 03/16/17 00:00 97.5 78 18 94/57 (69) 94 03/15/17 20:00 98.2 75 17 111/59 (76) 98 03/15/17 16:00 97.3 74 20 104/58 (73) 100 03/15/17 12:48 96.4 70 20 100/55 (70) 100 03/15/17 09:23 80 16 100/56 (71) 100 I/O 03/15/17 03/15/17 03/15/17 03/16/17 03/16/17 03/16/17 07:00 15:00 23:00 07:00 15:00 23:00 Intake Total 480 ml 50 ml 1555 ml 300 ml Output Total 450 ml 3050 ml 300 ml Balance 30 ml 50 ml -1495 ml 0 ml Intake Oral 480 ml 1440 ml 240 ml IV Total 50 ml 115 ml 60 ml Output Urine Total 450 ml 3050 ml 300 ml # Bowel Movements 2 2 1 Result Diagram: 03/16/17 0700 03/15/17 0548 Other Results Laboratory Tests Test 03/13/17 11:40 03/14/17 06:00 03/15/17 05:48 03/15/17 05:57 Stool C. difficile Toxin (PCR) NEGATIVE Stl C. difficile Toxin Epiderm 027 PRESUMPTIVE NEGATIVE White Blood Count 20.5 TH/MM3 20.3 TH/MM3 Red Blood Count 2.37 MIL/MM3 2.49 MIL/MM3 Hemoglobin 7.8 GM/DL 8.0 GM/DL Hematocrit 22.4 % 23.5 % Mean Corpuscular Volume 94.8 FL 94.2 FL Mean Corpuscular Hemoglobin 33.0 PG 32.1 PG Mean Corpuscular Hemoglobin Concent 34.8 % 34.1 % Red Cell Distribution Width 21.1 % 20.1 % Platelet Count 347 TH/MM3 371 TH/MM3 Mean Platelet Volume 10.0 FL 9.0 FL Neutrophils (%) (Auto) 75.8 % 79.6 % Lymphocytes (%) (Auto) 18.4 % 13.3 % Monocytes (%) (Auto) 5.4 % 6.7 % Eosinophils (%) (Auto) 0.2 % 0.2 % Basophils (%) (Auto) 0.2 % 0.2 % Neutrophils # (Auto) 15.5 TH/MM3 16.2 TH/MM3 Lymphocytes # (Auto) 3.8 TH/MM3 2.7 TH/MM3 Monocytes # (Auto) 1.1 TH/MM3 1.4 TH/MM3 Eosinophils # (Auto) 0.1 TH/MM3 0.0 TH/MM3 Basophils # (Auto) 0.0 TH/MM3 0.0 TH/MM3 CBC Comment AUTO DIFF AUTO DIFF Differential Total Cells Counted 100 100 Neutrophils % (Manual) 80 % 87 % Band Neutrophils % 13 % 2 % Lymphocytes % 2 % 5 % Monocytes % 4 % 4 % Neutrophils # (Manual) 19.3 TH/MM3 18.5 TH/MM3 Myelocytes 1 % 1 % Nucleated Red Blood Cells 1 /100 WBC Differential Comment FINAL DIFF MANUAL FINAL DIFF MANUAL Platelet Estimate NORMAL Platelet Morphology Comment NORMAL Target Cells 2+ 2+ Blood Urea Nitrogen 17 MG/DL 18 MG/DL Creatinine 1.10 MG/DL 1.09 MG/DL Random Glucose 116 MG/DL 92 MG/DL Total Protein 5.3 GM/DL 5.6 GM/DL Albumin 1.5 GM/DL 1.5 GM/DL Calcium Level 7.9 MG/DL 8.1 MG/DL Magnesium Level 1.9 MG/DL 1.9 MG/DL Alkaline Phosphatase 462 U/L 447 U/L Aspartate Amino Transf (AST/SGOT) 199 U/L 186 U/L Alanine Aminotransferase (ALT/SGPT) 77 U/L 70 U/L Total Bilirubin 18.0 MG/DL 17.6 MG/DL Sodium Level 134 MEQ/L 134 MEQ/L Potassium Level 3.2 MEQ/L 3.5 MEQ/L Chloride Level 103 MEQ/L 104 MEQ/L Carbon Dioxide Level 20.0 MEQ/L 20.4 MEQ/L Anion Gap 11 MEQ/L 10 MEQ/L Estimat Glomerular Filtration Rate 81 ML/MIN 82 ML/MIN Lipase 207 U/L Phosphorus Level 1.8 MG/DL Hemoglobin A1c 3.9 % Free Thyroxine 1.31 NG/DL Thyroid Stimulating Hormone 3rd Gen 1.360 uIU/ML Metamyelocytes 1 % Prothrombin Time 15.0 SEC Prothromb Time International Ratio 1.3 RATIO Ammonia LESS THAN 10 MCMOL/L Test 03/16/17 07:00 White Blood Count 21.6 TH/MM3 Red Blood Count 2.38 MIL/MM3 Hemoglobin 7.7 GM/DL Hematocrit 22.6 % Mean Corpuscular Volume 95.0 FL Mean Corpuscular Hemoglobin 32.3 PG Mean Corpuscular Hemoglobin Concent 34.0 % Red Cell Distribution Width 21.3 % Platelet Count 346 TH/MM3 Mean Platelet Volume 9.3 FL Neutrophils (%) (Auto) 88.2 % Lymphocytes (%) (Auto) 4.1 % Monocytes (%) (Auto) 7.3 % Eosinophils (%) (Auto) 0.2 % Basophils (%) (Auto) 0.2 % Neutrophils # (Auto) 19.0 TH/MM3 Lymphocytes # (Auto) 0.9 TH/MM3 Monocytes # (Auto) 1.6 TH/MM3 Eosinophils # (Auto) 0.0 TH/MM3 Basophils # (Auto) 0.0 TH/MM3 CBC Comment AUTO DIFF Imaging Last Impressions Ribs X-Ray 03/13/17 0000 Signed Impressions: Service Date/Time: Monday, March 13, 2017 10:14 - CONCLUSION: No acute disease. Weston Westbrook MD Liver Biopsy CT 03/12/17 0757 Signed Impressions: Service Date/Time: Sunday, March 12, 2017 10:46 - CONCLUSION: Uncomplicated CT guided biopsy. Aguila Solano MD Cyst Biopsy Asp-Paracentesis US 03/12/17 0000 Signed Impressions: Service Date/Time: Sunday, March 12, 2017 09:16 - CONCLUSION: Uncomplicated ultrasound guided paracentesis. Aguila Solano MD Abdomen/Pelvis CT 03/11/17 1033 Signed Impressions: Service Date/Time: February 12:12 - CONCLUSION: 1. Extensive hepatic masses consistent with primary or metastatic neoplasm. 2. Multiple non-calcified pulmonary nodules with the largest located in the left lower lobe measuring 2.3 cm consistent with metastatic disease until proven otherwise. 3. Biliary ductal dilatation of indeterminate etiology. MRI of the abdomen with contrast and MRCP may be helpful for further evaluation if clinically indicated. 4. 11 mm splenic nodules which are indeterminate. 5. 2.7 x 1.9 cm left adrenal mass which is indeterminate. 6. Ascites. Aguila Solano MD Lower Extremity Ultrasound 03/11/17 0000 Signed Impressions: Service Date/Time: February 19:37 - CONCLUSION: No DVT. Weston Maya MD Cholangiopancreatography MRI 03/11/17 0000 Signed Impressions: Service Date/Time: February 18:17 - CONCLUSION: Extensive metastatic disease of the liver and I believe the left lobe intrahepatic ductal dilatation is due to associated mass effect. No intraductal stone or definite tumor demonstrated. Gallbladder and common bile duct are nondistended. Weston Maya MD Chest X-Ray 03/11/17 0000 Signed Impressions: Service Date/Time: February 10:49 - CONCLUSION: Normal examination. José Miguel Martinez MD Objective Remarks GENERAL: AWAKE ALERT AND ORIENTED x3 SKIN: Warm and dry.JAUNDICE HEAD: Atraumatic. Normocephalic. EYES: Pupils equal and round. POSITIVE SCLERAL ICTERUS. No injection or drainage. ENT: No nasal bleeding or discharge. Mucous membranes pink and moist. TONGUE MIDLINE NECK: Trachea midline. No JVD. SUPPLE CARDIOVASCULAR: Regular rate and rhythm. S1, S2 NO S3 OR S4 NO HEAVE OR THRILL RESPIRATORY: No accessory muscle use. Clear to auscultation. Breath sounds equal bilaterally. GASTROINTESTINAL: Abdomen soft, non-tender, nondistended. HEPATOMEGALY. LESS DISTENDED MUSCULOSKELETAL: Extremities without clubbing, cyanosis, PLUS 1 LE EDEMA BL. No obvious deformities. NEUROLOGICAL: Awake and alert. No obvious cranial nerve deficits. Motor grossly within normal limits. Five out of 5 muscle strength in the arms and legs. Normal speech. PSYCHIATRIC: Appropriate mood and affect; insight and judgment normal. Procedures PARACENTESIS AND LIVER BIOPSIES Medications and IVs Current Medications Sodium Chloride (NS Flush) 2 ml UNSCH PRN IV FLUSH FLUSH AFTER USING IV ACCESS ; Start 03/11/17 at 10:45; Stop 03/11/17 at 14:42; Status DC Iohexol (Omnipaque 350 Inj) 99 ml STK-MED ONCE IVCONTRAST Last administered on 03/11/17 12:21; Start 03/11/17 at 12:21; Stop 03/11/17 at 12:22; Status DC Piperacillin Sod/ Tazobactam Sod 50 ml @ 100 mls/hr ONCE ONCE IV Last administered on 03/11/17 12:56; Start 03/11/17 at 12:45; Stop 03/11/17 at 13:14 ; Status DC Sodium Chloride 1,000 ml @ 75 mls/hr [id number] IV Last administered on 04:22; Start 03/11/17 at 15:00; Stop 03/12/17 at 16:58; Status DC Sodium Chloride (NS Flush) 2 ml UNSCH PRN IV FLUSH FLUSH AFTER USING IV ACCESS Last administered on 03/16/17 03:10; Start 03/11/17 at 14:45 Sodium Chloride (NS Flush) 2 ml BID IV FLUSH Last administered on 03/16/17 08: 06; Start 03/11/17 at 21:00 Ondansetron HCl (Zofran Inj) 4 mg Q6H PRN IVP NAUSEA OR VOMITING; Start at 14:45 Naloxone HCl (Narcan Inj) 0.4 mg UNSCH PRN IV PUSH SEE LABEL COMMENTS; Start at 14:45 Senna/Docusate Sodium (Oxana-Colace) 1 tab BID PO Last administered on 08:20; Start 03/11/17 at 21:00; Stop 03/15/17 at 16:55; Status DC Magnesium Hydroxide (Milk Of Magnesia Liq) 30 ml Q12H PRN PO MILD - MODERATE CONSTIPATION; Start 03/11/17 at 14:45 Sennosides (Senokot) 17.2 mg Q12H PRN PO MODERATE - SEVERE CONSTIPATION; Start 03/11/17 at 14:45 Bisacodyl (Dulcolax Supp) 10 mg DAILY PRN RECTAL SEVERE CONSITIPATION; Start at 14:45 Lactulose (Lactulose Liq) 30 ml DAILY PRN PO SEVERE CONSITIPATION; Start at 14:45 Acetaminophen/ Hydrocodone Bitart ([place] 5-325 Mg) 1 tab Q4H PRN PO PAIN SCALE 3 TO 6 Last administered on 03/12/17 21:08; Start 03/11/17 at 14:45; Stop 03/15/17 at 16:32; Status DC Acetaminophen/ Hydrocodone Bitart ([place] 7.5-325 Mg) 1 tab Q6H PRN PO PAIN SCALE 7 TO 10 Last administered on 03/15/17 09:25; Start 03/11/17 at 14:45; Stop 03/15/17 at 16:32; Status DC Digoxin (Lanoxin) 0.125 mg DAILY PO Last administered on 03/15/17 09:21; Start 03/12/17 at 09:00 Enalapril Maleate (Vasotec) 2.5 mg BID PO Last administered on 03/15/17 20:16 ; Start 03/11/17 at 21:00 Furosemide (Lasix) 40 mg DAILY PO Last administered on 03/15/17 09:22; Start 03/12/17 at 09:00 Metoprolol Tartrate (Lopressor) 50 mg BID PO Last administered on 03/16/17 08: 05; Start 03/11/17 at 21:00 Spironolactone (Aldactone) 25 mg BIDPC PO Last administered on 03/16/17 08:06 ; Start 03/11/17 at 18:00 Tamsulosin HCl (Flomax) 0.4 mg HS PO Last administered on 03/15/17 20:16; Start 03/11/17 at 21:00 Piperacillin Sod/ Tazobactam Sod 50 ml @ 100 mls/hr Q6H IV Last administered on 03/16/17 08:05; Start 03/11/17 at 20:00 Metronidazole (Flagyl) 500 mg Q6HR PO Last administered on 03/16/17 05:58; Start 03/11/17 at 18:00 Gadodiamide (Omniscan Pf Inj) 15 ml STK-MED ONCE IVCONTRAST Last administered on 03/11/17 19:05; Start 03/11/17 at 19:05; Stop 03/11/17 at 19:06; Status DC Lidocaine HCl (Xylocaine 1% Inj) 20 ml STK-MED ONCE .ROUTE Last administered on 03/12/17 10:03; Start 03/12/17 at 10:03; Stop 03/12/17 at 10:04; Status DC Fentanyl Citrate (fentaNYL INJ) 200 mcg STK-MED ONCE .ROUTE Last administered on 03/12/17 10:20; Start 03/12/17 at 10:20; Stop 03/12/17 at 10:21; Status DC Midazolam HCl (Versed Inj) 5 mg STK-MED ONCE .ROUTE Last administered on 10:21; Start 03/12/17 at 10:21; Stop 03/12/17 at 10:22; Status DC Potassium Chloride (KCl) 40 meq ONCE ONCE PO Last administered on 03/12/17 17 :56; Start 03/12/17 at 17:00; Stop 03/12/17 at 17:03; Status DC Pantoprazole Sodium (Protonix) 40 mg Q12HR PO Last administered on 03/16/17 08 :05; Start 03/12/17 at 21:00 Morphine Sulfate (Morphine Inj) 2 mg Q4HR PRN IV PUSH BREAKTHROUGH PAIN; Start 03/13/17 at 08:45 Oxycodone HCl (Roxicodone) 10 mg Q4H PRN PO pain 6-10 Last administered on 03/16 08:08; Start 03/15/17 at 16:45 Oxycodone HCl (Roxicodone) 5 mg Q4H PRN PO pain 3-5; Start 03/15/17 at 16:45 Docusate Sodium (Colace) 100 mg TID PO Last administered on 03/16/17 08:05; Start 03/15/17 at 18:00 Senna/Docusate Sodium (Oxana-Colace) 2 tab BID PO ; Start 03/15/17 at 21:00 Urinary Catheter: No Vascular Central Line Catheter: No A/P Problem List: (1) Pain ICD Code: R52 - Pain, unspecified (2) LFT elevation ICD Code: R94.5 - Abnormal results of liver function studies Status: Acute (3) Cardiomyopathy ICD Code: I42.9 - Cardiomyopathy, unspecified Status: Chronic (4) Hypertension ICD Code: I10 - Essential (primary) hypertension Status: Acute (5) Malnutrition ICD Code: E46 - Unspecified protein-calorie malnutrition (6) Dyspnea ICD Code: R06.00 - Dyspnea, unspecified (7) Liver masses ICD Code: R16.0 - Hepatomegaly, not elsewhere classified Status: Acute Assessment and Plan Jaundice/liver masses/weight loss/abdominal pain/hyperbilirubinemia/ascites: - CT abdomen shows extensive hepatic masses consistent with primary or metastatic neoplasm. Multiple noncalcified pulmonary nodules with the largest located in the left lower lobe measuring 2.3 cm consistent with metastatic disease. Biliary ductal dilatation of indeterminate etiology. 11 mm splenic nodules which are indeterminate. 2.7 x 1.9 cm left adrenal mass which is indeterminate. - Ascites. s/p paracentesis. F/u on fluid studies which are pending. - GI following, appreciate their assistance. Recs are: "Palliative care was recommended if the bilirubin increases or if there are any signs of biliary sepsis, may consider ERCP versus PTCA supportive care" - MRCP shows extensive metastatic disease in the liver and likely the left lobe intrahepatic ductal dilatation due to associated mass effect. - Oncology also following, appreciate their assistance - s/p CT guided liver biopsy. Follow up on results. - CEA elevated 8427, AFP 1.6, CA19-9 3.1. suspecting metastatic colon cancer. - Patient presented with leukocytosis of 20.7 and a platelet count of 478. T bili of 22.2, AST 199, ALT 88. Alkaline phosphatase 640. Patient receive a dose of Zosyn in the emergency room. Continue IV Zosyn and Flagyl by mouth. Today T. Bili is 19.6 AST 198 ALT 80. Continue to monitor CMP, CBC and monitor Vitals. Anemia: 8.7 on admission, now 8.0. monitor closely and transfuse if <7.0. Patient admits to blood clots in his stools. hold aspirin. GI following. Hypokalemia: resolved Chest pain: Troponin 0.02 x 2. EKG no ST elevation or depression. atrial enlargement is noted on EKG. Chest pain is unchanged. Pt is known to Dr. Payne , will consult for further assistance. Continue pain control. I will check xray of ribs to r/o any bone lesions that could potentially cause pain as well since pt does have metastasis. blood clots per rectum: GI following. Hold ASA or any anticoagulation for now. BLE edema: Doppler US negative for DVT. Pancreatitis: Lipase level up to 1151. We'll hold off on giving IV fluids as patient already complaining of shortness of breath and has an EF of 30-35%. Clinically abdominal pain is improving. Hypertension:on lasix/spironolactone/enalapril/metoprolol/digoxin systolic CHF: Chest x-ray didn't show any pulm edema, BNP wnl. Suspect SOB is from ascites and increase abdominal girth. monitor. on lasix, digoxin, metoprolol and enalapril. DVT Proph: SCD. Avoid chemical anticoagulation due to anemia and pt passing blood clots. SP PARACENTESIS WILL CONSULT PALLIATIVE CARE Discharge Planning d/c pending further work-up and clinical improvement awaiting liver biopsies. monitor LFTs, T. Bili and pt becomes febrile may need ERCP versus PTCA supportive care As of now pt wishes to pursue aggressive management. GI and oncology following. Appreciate assistance from all consultants. PT AND OT EVAL PATIENT STILL WANTS AGGRESSIVE TREATMENT Anselmo Disla DO Mar 16, 2017 08:57
[2017-03-16 09:04] LABS: ANION GAP 12 MEQ/L (5-15); AST (GOT) 195 U/L (15-37); BICARBONATE 20.3 MEQ/L (21.0-32.0); BLOOD UREA NITROGEN 23 MG/DL (7-18); CHLORIDE 101 MEQ/L (98-107); GLOMERULAR FILTRATION RATE 66 ML/MIN (>89); MAGNESIUM 1.9 MG/DL (1.5-2.5); POTASSIUM 3.2 MEQ/L (3.5-5.1); SODIUM (NA) 133 MEQ/L (136-145)
[2017-03-16 09:05] LABS: ALT (GPT) 67 U/L (12-78)
[2017-03-16 09:07] LABS: ALKALINE PHOSPHATASE 444 U/L (45-117); TOTAL BILIRUBIN ADULT 17.3 MG/DL (0.2-1.0)
--- NOTE | 2017-03-16 10:21 | HHI.HCPN ---
Reason for visit a. To assist with evaluation and management of symptoms including:dyspnea, malnutrition, pain b. To assist medical decision maker(s) with: better understanding of current medical conditions; weighing benefits/burdens of medical treatment options; making medical treatment decisions. Subjective/Interval History Pt seen today to follow up on comfort, goals. stable overnight. WBC remains elevated 21. H&H 7.7/22.6. Bilirubin cont to be elevated 17.3. BUN 23/creatinine 1.31, trending up slightly. UOP adequate. D/w medical attending yesterday-- norco changed to oxycodone, scheduled bowel regimen added. pt seen in room, no visitors present. Dual visit w S. Lower [employer]PART[employer]. Pt alert, oriented, pleasant. He indicates feeling well overall. Pain is "exactly the same " as yesterday. Appetite decreased says because "it goes right through me", drank coffee and OJ this am. No nausea. +having bowel movements. Review of pain medication changes, PO available as well as IV for more severe pain. Review balancing pain relief w sedation/low bp effects of opiates/ limitations due to this. Review pathology still pending. Again offer to call his sister to update , he indicates he is in communication with her and she will be in tomorrow am, and that we can talk to her then. He has not completed HCS yet, wishes to review document with her first. . Advance Directives Living Will: Never completed Health Care Surrogate: Never completed Durable Power of Intelligence Senior Sergeant: Never completed Objective Vital Signs Date Time Temp Pulse Resp B/P (MAP) Pulse Ox O2 Delivery O2 Flow Rate FiO2 03/16/17 08:00 97.8 76 18 112/62 (79) 99 03/16/17 04:00 96.7 74 17 91/53 (66) 100 03/16/17 00:00 97.5 78 18 94/57 (69) 94 03/15/17 20:00 98.2 75 17 111/59 (76) 98 03/15/17 16:00 97.3 74 20 104/58 (73) 100 03/15/17 12:48 96.4 70 20 100/55 (70) 100 Intake & Output 03/16/17 03/16/17 07:00 19:00 Intake Total 365 ml Output Total 700 ml 100 ml Balance -335 ml -100 ml Intake Oral 240 ml IV Total 125 ml Output Urine Total 700 ml 100 ml # Bowel Movements 1 Physical Exam CONSTITUTIONAL/GENERAL: This is a frail, ill-appearing patient TUBES/LINES/DRAINS:+ Peripheral IV right upper extremity EYES: Pupils equal and round and reactive. Extraocular motions intact.+ scleral icterus. No injection or drainage. Fundi not examined. CARDIOVASCULAR: Regular rate and rhythm without murmurs. Peripheral pulses symmetric. Trace pedal edema. RESPIRATORY/CHEST: Symmetric, unlabored respirations. On room air. Clear to auscultation. Breath sounds equal bilaterally. GASTROINTESTINAL: Abdomen firm,tender, distended. limited palpation due to tenderness. Bowel sounds hypoactive GENITOURINARY: Without palpable bladder distension. urinal at bedside w dark orange brown urine noted NEUROLOGICAL: Awake and alert. oriented x3, appropriate. Has simple insight. Cognitively sharp. Moves all 4 extremities. PSYCHIATRIC: No obvious anxiety/depression. no apparent hallucinations or other psychotic thought process. Diagnostic Tests Laboratory Laboratory Tests Test 03/13/17 11:40 03/14/17 06:00 03/15/17 05:48 03/15/17 05:57 Stool C. difficile Toxin (PCR) NEGATIVE (NEGATIVE) Stl C. difficile Toxin Epiderm 027 PRESUMPTIVE NEGATIVE White Blood Count 20.5 TH/MM3 (4.0-11.0) 20.3 TH/MM3 (4.0-11.0) Red Blood Count 2.37 MIL/MM3 (4.50-5.90) 2.49 MIL/MM3 (4.50-5.90) Hemoglobin 7.8 GM/DL (13.0-17.0) 8.0 GM/DL (13.0-17.0) Hematocrit 22.4 % (39.0-51.0) 23.5 % (39.0-51.0) Mean Corpuscular Volume 94.8 FL (80.0-100.0) 94.2 FL (80.0-100.0) Mean Corpuscular Hemoglobin 33.0 PG (27.0-34.0) 32.1 PG (27.0-34.0) Mean Corpuscular Hemoglobin Concent 34.8 % (32.0-36.0) 34.1 % (32.0-36.0) Red Cell Distribution Width 21.1 % (11.6-17.2) 20.1 % (11.6-17.2) Platelet Count 347 TH/MM3 (150-450) 371 TH/MM3 (150-450) Mean Platelet Volume 10.0 FL (7.0-11.0) 9.0 FL (7.0-11.0) Neutrophils (%) (Auto) 75.8 % (16.0-70.0) 79.6 % (16.0-70.0) Lymphocytes (%) (Auto) 18.4 % (9.0-44.0) 13.3 % (9.0-44.0) Monocytes (%) (Auto) 5.4 % (0.0-8.0) 6.7 % (0.0-8.0) Eosinophils (%) (Auto) 0.2 % (0.0-4.0) 0.2 % (0.0-4.0) Basophils (%) (Auto) 0.2 % (0.0-2.0) 0.2 % (0.0-2.0) Neutrophils # (Auto) 15.5 TH/MM3 (1.8-7.7) 16.2 TH/MM3 (1.8-7.7) Lymphocytes # (Auto) 3.8 TH/MM3 (1.0-4.8) 2.7 TH/MM3 (1.0-4.8) Monocytes # (Auto) 1.1 TH/MM3 (0-0.9) 1.4 TH/MM3 (0-0.9) Eosinophils # (Auto) 0.1 TH/MM3 (0-0.4) 0.0 TH/MM3 (0-0.4) Basophils # (Auto) 0.0 TH/MM3 (0-0.2) 0.0 TH/MM3 (0-0.2) CBC Comment AUTO DIFF AUTO DIFF Differential Total Cells Counted 100 100 Neutrophils % (Manual) 80 % (16-70) 87 % (16-70) Band Neutrophils % 13 % (0-6) 2 % (0-6) Lymphocytes % 2 % (9-44) 5 % (9-44) Monocytes % 4 % (0-8) 4 % (0-8) Neutrophils # (Manual) 19.3 TH/MM3 (1.8-7.7) 18.5 TH/MM3 (1.8-7.7) Myelocytes 1 % (0-0) 1 % (0-0) Nucleated Red Blood Cells 1 /100 WBC (0-0) Differential Comment FINAL DIFF MANUAL FINAL DIFF MANUAL Platelet Estimate NORMAL (NORMAL) Platelet Morphology Comment NORMAL (NORMAL) Target Cells 2+ (NORMAL) 2+ (NORMAL) Blood Urea Nitrogen 17 MG/DL (7-18) 18 MG/DL (7-18) Creatinine 1.10 MG/DL (0.60-1.30) 1.09 MG/DL (0.60-1.30) Random Glucose 116 MG/DL (74-106) 92 MG/DL (74-106) Total Protein 5.3 GM/DL (6.4-8.2) 5.6 GM/DL (6.4-8.2) Albumin 1.5 GM/DL (3.4-5.0) 1.5 GM/DL (3.4-5.0) Calcium Level 7.9 MG/DL (8.5-10.1) 8.1 MG/DL (8.5-10.1) Magnesium Level 1.9 MG/DL (1.5-2.5) 1.9 MG/DL (1.5-2.5) Alkaline Phosphatase 462 U/L (45-117) 447 U/L (45-117) Aspartate Amino Transf (AST/SGOT) 199 U/L (15-37) 186 U/L (15-37) Alanine Aminotransferase (ALT/SGPT) 77 U/L (12-78) 70 U/L (12-78) Total Bilirubin 18.0 MG/DL (0.2-1.0) 17.6 MG/DL (0.2-1.0) Sodium Level 134 MEQ/L (136-145) 134 MEQ/L (136-145) Potassium Level 3.2 MEQ/L (3.5-5.1) 3.5 MEQ/L (3.5-5.1) Chloride Level 103 MEQ/L (98-107) 104 MEQ/L (98-107) Carbon Dioxide Level 20.0 MEQ/L (21.0-32.0) 20.4 MEQ/L (21.0-32.0) Anion Gap 11 MEQ/L (5-15) 10 MEQ/L (5-15) Estimat Glomerular Filtration Rate 81 ML/MIN (>89) 82 ML/MIN (>89) Lipase 207 U/L (73-393) Phosphorus Level 1.8 MG/DL (2.5-4.9) Hemoglobin A1c 3.9 % (4.3-6.0) Free Thyroxine 1.31 NG/DL (0.76-1.46) Thyroid Stimulating Hormone 3rd Gen 1.360 uIU/ML (0.358-3.740) Metamyelocytes 1 % (0-1) Prothrombin Time 15.0 SEC (9.8-11.6) Prothromb Time International Ratio 1.3 RATIO Ammonia LESS THAN 10 MCMOL/L Test 03/16/17 07:00 White Blood Count 21.6 TH/MM3 (4.0-11.0) Red Blood Count 2.38 MIL/MM3 (4.50-5.90) Hemoglobin 7.7 GM/DL (13.0-17.0) Hematocrit 22.6 % (39.0-51.0) Mean Corpuscular Volume 95.0 FL (80.0-100.0) Mean Corpuscular Hemoglobin 32.3 PG (27.0-34.0) Mean Corpuscular Hemoglobin Concent 34.0 % (32.0-36.0) Red Cell Distribution Width 21.3 % (11.6-17.2) Platelet Count 346 TH/MM3 (150-450) Mean Platelet Volume 9.3 FL (7.0-11.0) Neutrophils (%) (Auto) 88.2 % (16.0-70.0) Lymphocytes (%) (Auto) 4.1 % (9.0-44.0) Monocytes (%) (Auto) 7.3 % (0.0-8.0) Eosinophils (%) (Auto) 0.2 % (0.0-4.0) Basophils (%) (Auto) 0.2 % (0.0-2.0) Neutrophils # (Auto) 19.0 TH/MM3 (1.8-7.7) Lymphocytes # (Auto) 0.9 TH/MM3 (1.0-4.8) Monocytes # (Auto) 1.6 TH/MM3 (0-0.9) Eosinophils # (Auto) 0.0 TH/MM3 (0-0.4) Basophils # (Auto) 0.0 TH/MM3 (0-0.2) CBC Comment AUTO DIFF Blood Urea Nitrogen 23 MG/DL (7-18) Creatinine 1.31 MG/DL (0.60-1.30) Random Glucose 84 MG/DL (74-106) Total Protein 5.3 GM/DL (6.4-8.2) Albumin 1.5 GM/DL (3.4-5.0) Calcium Level 8.3 MG/DL (8.5-10.1) Phosphorus Level 2.0 MG/DL (2.5-4.9) Magnesium Level 1.9 MG/DL (1.5-2.5) Alkaline Phosphatase 444 U/L (45-117) Aspartate Amino Transf (AST/SGOT) 195 U/L (15-37) Alanine Aminotransferase (ALT/SGPT) 67 U/L (12-78) Total Bilirubin 17.3 MG/DL (0.2-1.0) Sodium Level 133 MEQ/L (136-145) Potassium Level 3.2 MEQ/L (3.5-5.1) Chloride Level 101 MEQ/L (98-107) Carbon Dioxide Level 20.3 MEQ/L (21.0-32.0) Anion Gap 12 MEQ/L (5-15) Estimat Glomerular Filtration Rate 66 ML/MIN (>89) Result Diagram: 03/16/17 0700 03/16/17 0700 Imaging Last Impressions Ribs X-Ray 03/13/17 0000 Signed Impressions: Service Date/Time: Monday, March 13, 2017 10:14 - CONCLUSION: No acute disease. Weston Westbrook MD Liver Biopsy CT 03/12/17 0757 Signed Impressions: Service Date/Time: Sunday, March 12, 2017 10:46 - CONCLUSION: Uncomplicated CT guided biopsy. Aguila Solano MD Cyst Biopsy Asp-Paracentesis US 03/12/17 0000 Signed Impressions: Service Date/Time: Sunday, March 12, 2017 09:16 - CONCLUSION: Uncomplicated ultrasound guided paracentesis. Aguila Solano MD Abdomen/Pelvis CT 03/11/17 1033 Signed Impressions: Service Date/Time: February 12:12 - CONCLUSION: 1. Extensive hepatic masses consistent with primary or metastatic neoplasm. 2. Multiple non-calcified pulmonary nodules with the largest located in the left lower lobe measuring 2.3 cm consistent with metastatic disease until proven otherwise. 3. Biliary ductal dilatation of indeterminate etiology. MRI of the abdomen with contrast and MRCP may be helpful for further evaluation if clinically indicated. 4. 11 mm splenic nodules which are indeterminate. 5. 2.7 x 1.9 cm left adrenal mass which is indeterminate. 6. Ascites. Aguila Solano MD Lower Extremity Ultrasound 03/11/17 Signed Impressions: Service Date/Time: February 19:37 - CONCLUSION: No DVT. Weston Maya MD Cholangiopancreatography MRI 03/11/17 Signed Impressions: Service Date/Time: February 18:17 - CONCLUSION: Extensive metastatic disease of the liver and I believe the left lobe intrahepatic ductal dilatation is due to associated mass effect. No intraductal stone or definite tumor demonstrated. Gallbladder and common bile duct are nondistended. Weston Maya MD Chest X-Ray 03/11/17 Signed Impressions: Service Date/Time: February 10:49 - CONCLUSION: Normal examination. José Miguel Martinez MD Procedures 03/12/17-liver biopsy- path pending . 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 Adult child who lives out of the area, whom he has had no communication with. No children. Lives at home alone. Supported by a sister and brother. Born and raised in [facility]. 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 He is considering designating his sister as healthcare surrogate but wishes to talk with her about this first. He is also supported by a local brother. He is . Does have an adult child somewhere that he does not have any communication with. Ethical issues impacting care: Important Contacts Sister Edita Polk [phone] Friend Bala Maxwell [phone] Prognosis This patient was admitted for abdominal pain, chest pain. He has new findings of widespread lesions throughout liver, lung, possible colon involvement. Presumed malignancy, though primary not known. Due to medical comorbidities, frail status not likely to be a candidate for systemic treatment. Appropriate for hospice if goals were compatible. Code Status: Full Code Plan * Legal decision maker:Pt appears capacitated to make decisions. He is considering designating his sister as healthcare surrogate but wishes to talk with her about this first. He is also supported by a local brother. He is . Does have an adult child somewhere that he does not have any communication with. * Goals: Patient seems to have simple insight to possible disease process. For right now he wishes to pursue biopsy for a confirmative diagnoses, to try to find out what his treatment options might be. He is open to ongoing discussions regarding treatment options and the possibility of hospice if there are no treatment options. * pathology of liver BX still pending * * CODE STATUS: Full code * SYMPTOMS: --Chest [id number] chest pain which radiates down and around back. Indicates a little better during hospital course but pretty much constant, sharp at times. Some relief when using oral pain medicine does not wish to use other pain medications. Concern for increasing pain medication given hypotension some systolic BPs in the 90s. If goals were comfort oriented could consider up titrating. Troponin less than 0.02. EKG sinus rhythm. Patient with known history of CHF, per records has previously been recommended for pacemaker, cardiovascular intervention which the patient refused. --Abdominal pain- 2/2 metastatic disease process in liver, ?primary etiology of malignancy. LFTs, bilirubin elevated. Patient endorses pain 7/10 little better during hospital course however still present. Again some concern and caution regarding increasing pain medication due to hypotension, if goals were comfort oriented could consider up titration. changed from Coin to oxycodone by med attending. Cont to have prn IV morphine available. --Dyspnea-patient does not appear short of breath but subjectively endorses feeling short of breath even during conversation. This may be secondary to abdominal pressure and disease process. Lungs are clear and O2 sats have been 99-100%. Last CXR with no acute process identified. Will continue to evaluate. --Malnutrition-endorse appetite fair, never a big eater. Weight loss 15-20 pounds in the past 6 months . Albumin 1.5. If goals aggressive may benefit from nutrition supplement. * Palliative care will continue to follow during hospital course as condition evolves, to assist patient/decision-maker with understanding of medical conditions, weighing benefits/burdens of treatment options, for clarification of goals of treatment. Additionally will assist with any symptoms of palliative concern Attestation To help prompt me to consider important information that might be impacting today's encounter and assessment, information from prior notes written by myself or my colleagues may have been "brought forward" into today's note. My signature on this note, however, is an attestation that I personally performed the exam, history, and/or decision-making noted today, and, unless otherwise indicated, the interactions with patient, family, and staff as well as the review of records all occurred today. I also attest that the listed assessment and stated plan reflect my best clinical judgment today based on the combination of historical information, prior notes, and today's exam/ interactions. When time spent is documented, it refers only to time spent today by the signer, or if indicated, combined time spent today by collaborating physician/nurse practitioner. Abeba Evans Mar 16, 2017 10:21
[2017-03-16 12:04] LABS: BANDS 6 % (0-6); BASOPHILS 1 % (0-2); METAMYELOCYTES 2 % (0-1); NEUTROPHIL # MANUAL DIFF 18.8 TH/MM3 (1.8-7.7); POLYS (SEG NEUTROPHILS) 79 % (16-70); TARGET CELLS 2+ (NORMAL); WBC DIFF SAMPLE 100
[2017-03-16 12:05] LABS: PLATELET ESTIMATE SMEAR NORMAL (NORMAL); PLATELET MORPHOLOGY NORMAL (NORMAL); SCAN/DIFF FINAL DIFF MANUAL
[2017-03-16] MEDS: FUROSEMIDE 40 MG TAB PO SCH (12:32)
[2017-03-16] MEDS: ENALAPRIL MALEATE 2.5 MG TAB PO SCH ×2 (12:32→21:00)
[2017-03-16] MEDS: DIGOXIN 0.125 MG TAB PO SCH (14:26)
--- NOTE | 2017-03-16 17:20 | PD.ONC.PN ---
Subjective Subjective Remarks Patient seen and examined, vital signs labs medications and pathology reviewed. Subjectively denies acute complaints other than abdominal discomfort. 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 We talked about goals of care and palliation/comfort oriented care versus disease directed therapy. Objective Data Date Time Temp Pulse Resp B/P (MAP) Pulse Ox O2 Delivery O2 Flow Rate FiO2 03/16/17 16:00 97.0 62 18 94/50 (65) 99 03/16/17 12:00 96.9 69 18 92/52 (65) 98 03/16/17 08:00 97.8 76 18 112/62 (79) 99 03/16/17 04:00 96.7 74 17 91/53 (66) 100 03/16/17 00:00 97.5 78 18 94/57 (69) 94 03/15/17 20:00 98.2 75 17 111/59 (76) 98 03/16/17 03/16/17 03/16/17 07:00 15:00 23:00 Intake Total 300 ml 770 ml Output Total 300 ml 350 ml Balance 0 ml 420 ml Result Diagram: 03/16/17 0700 03/16/17 0700 Laboratory Results Laboratory Tests Test 03/16/17 07:00 White Blood Count 21.6 TH/MM3 Red Blood Count 2.38 MIL/MM3 Hemoglobin 7.7 GM/DL Hematocrit 22.6 % Mean Corpuscular Volume 95.0 FL Mean Corpuscular Hemoglobin 32.3 PG Mean Corpuscular Hemoglobin Concent 34.0 % Red Cell Distribution Width 21.3 % Platelet Count 346 TH/MM3 Mean Platelet Volume 9.3 FL Neutrophils (%) (Auto) 88.2 % Lymphocytes (%) (Auto) 4.1 % Monocytes (%) (Auto) 7.3 % Eosinophils (%) (Auto) 0.2 % Basophils (%) (Auto) 0.2 % Neutrophils # (Auto) 19.0 TH/MM3 Lymphocytes # (Auto) 0.9 TH/MM3 Monocytes # (Auto) 1.6 TH/MM3 Eosinophils # (Auto) 0.0 TH/MM3 Basophils # (Auto) 0.0 TH/MM3 CBC Comment AUTO DIFF Differential Total Cells Counted 100 Neutrophils % (Manual) 79 % Band Neutrophils % 6 % Lymphocytes % 2 % Monocytes % 10 % Basophils % 1 % Neutrophils # (Manual) 18.8 TH/MM3 Metamyelocytes 2 % Differential Comment FINAL DIFF MANUAL Platelet Estimate NORMAL Platelet Morphology Comment NORMAL Target Cells 2+ Blood Urea Nitrogen 23 MG/DL Creatinine 1.31 MG/DL Random Glucose 84 MG/DL Total Protein 5.3 GM/DL Albumin 1.5 GM/DL Calcium Level 8.3 MG/DL Phosphorus Level 2.0 MG/DL Magnesium Level 1.9 MG/DL Alkaline Phosphatase 444 U/L Aspartate Amino Transf (AST/SGOT) 195 U/L Alanine Aminotransferase (ALT/SGPT) 67 U/L Total Bilirubin 17.3 MG/DL Sodium Level 133 MEQ/L Potassium Level 3.2 MEQ/L Chloride Level 101 MEQ/L Carbon Dioxide Level 20.3 MEQ/L Anion Gap 12 MEQ/L Estimat Glomerular Filtration Rate 66 ML/MIN Administered Medications Medications (Trade) Dose Ordered Sig/Wilder Route PRN Reason Start Time Stop Time Status Last Admin Dose Admin Sodium Chloride (NS Flush) 2 ml UNSCH PRN IV FLUSH FLUSH AFTER USING IV ACCESS 03/11/17 14:45 03/16/17 03:10 Sodium Chloride (NS Flush) 2 ml BID IV FLUSH 03/11/17 21:00 03/16/17 08:06 Digoxin (Lanoxin) 0.125 mg DAILY PO 03/12/17 09:00 03/16/17 14:26 Enalapril Maleate (Vasotec) 2.5 mg BID PO 03/11/17 21:00 03/15/17 20:16 Furosemide (Lasix) 40 mg DAILY PO 03/12/17 09:00 03/15/17 09:22 Metoprolol Tartrate (Lopressor) 50 mg BID PO 03/11/17 21:00 03/16/17 08:05 Spironolactone (Aldactone) 25 mg BIDPC PO 03/11/17 18:00 03/16/17 08:06 Tamsulosin HCl (Flomax) 0.4 mg HS PO 03/11/17 21:00 03/15/17 20:16 Piperacillin Sod/ Tazobactam Sod 50 ml @ 100 mls/hr Q6H IV 03/11/17 20:00 03/16/17 14:26 Metronidazole (Flagyl) 500 mg Q6HR PO 9/14/17 18:00 03/16/17 11:15 Pantoprazole Sodium (Protonix) 40 mg Q12HR PO 03/12/17 21:00 03/16/17 08:05 Oxycodone HCl (Roxicodone) 10 mg Q4H PRN PO pain 6-10 03/15/17 16:45 03/16/17 08:08 Docusate Sodium (Colace) 100 mg TID PO 03/15/17 18:00 03/16/17 08:05 Objective Remarks GENERAL APPEARANCE: Mr. Nolasco is an elderly male, he appears to be cachectic and chronically ill. He has a very pleasant disposition. HEAD, EYES, EARS, NOSE, AND THROAT: Head atraumatic, normocephalic, conjunctive a are pale sclerae are deeply icteric, EOMI, PERRLA, oral exam icteric. Mucous membranes, dry mucous membranes. NECK: Neck exam no palpable cervical or supraclavicular adenopathy. LUNGS: Respiratory exam; Good air movement bilaterally without any added breath sounds. CARDIOVASCULAR SYSTEM: Regular rate and rhythm, S1-S2 without any on his murmurs, gallops. He has good peripheral pulses. ABDOMEN: Abdominal exam; Belly is thin, it is distended, there is right upper quadrant tenderness, the liver is enlarged and is palpable 4 cm below the right and costal margin as well as the epigastric area. He has positive bowel sounds. There is free fluid in the abdomen noted. EXTREMITIES: Lower extremities: Bilateral pretibial edema. No calf tenderness. CENTRAL NERVOUS SYSTEM: No focal sensory motor deficits. Assessment/Plan Problem List: (1) Liver masses ICD Codes: R16.0 - Hepatomegaly, not elsewhere classified Status: Acute Plan: -- Extensive replacement of the liver with malignancy with resultant visceral crisis: --s/p CT-guided biopsy of liver jazmin 03/13. pathology pending. CEA level greater than 8000. --likely has metastatic colon cancer given his previous history of hematochezia. --Hyperbilirubinemia is likely related to hepatic dysfunction due to the liver being heavily involved with malignancy. --patient desires to pursue aggressive therapeutic interventions. --Dr. Vasquez would like to await final pathology before talking to him about potential treatment options. --Dr. Vasquez has already talked to him about the possibility that the most reasonable treatment option may be hospice/palliative care. Assessment Mr. Nolasco is a very pleasant 66-year-old male who presents to the hospital with progressive abdominal pain and distension as well as jaundice. Imaging studies confirmed the presence of extensive and diffusely present masses in all quadrants and segments of the liver. There is intrahepatic biliary ductal dilatation and pulmonary nodules noted on imaging studies. His total bilirubin level is 22, his alkaline phosphatase, AST and ALT levels are all elevated. These findings are most consistent with a malignancy which is heavily involving the liver and is quite frankly causing a visceral crisis. The patient does report having a several week history of blood clots in the stool, he also reports abdominal distension pain and yellow jaundice. Significant medical comorbid conditions include ischemic cardiomyopathy with an LVEF ranging between 25 and 35%. He also has recent physical debility. Plan 1. Metastatic adenocarcinoma of colonic primary: Extensive liver involvement with visceral crisis and hepatic dysfunction. He is a poor candidate for palliative systemic chemotherapy; even low intensity palliative systemic chemotherapy given his poor ECOG performance status and significant hepatic dysfunction. I therefore recommended comfort oriented care/hospice. The patient is agreeable to accept hospice level of care, I also spoke to his sister Mrs. Edita Polk I explained the diagnosis to her and the poor prognosis as well as barriers to disease directed therapy. I told her that I have recommended hospice level of care for her brother and she is agreeable to that. Mrs. Polk has requested the patient be transferred to the hospice care center because he lives alone and is in an apartment by himself most of the time. She does not think he will be able to care for himself at home alone. I therefore made a hospice referral for end-of-life care/comfort oriented care. Oncology will sign off. Sergio Vasquez MD Mar 16, 2017 17:20
[2017-03-16] MEDS: TAMSULOSIN HCL 0.4 MG CAP PO SCH (21:00)
[2017-03-17] VITALS: BP 104/51; PULSE 73; RESP 17; TEMP 97.9; O2SAT 99
[2017-03-17] MEDS: metroNIDAZOLE 500 MG TAB PO SCH ×5 (00:26→23:31)
[2017-03-17] MEDS: PIPERACIL-TAZO 3.375 GM PREMIX 50 ML IV SCH ×4 (02:25→21:46)
[2017-03-17] MEDS: SODIUM CHLORIDE 0.9% FLUSH 10 ML FLUSH IV FLUSH PRN ×2 (02:25→03:00)
[2017-03-17 04:00] VITALS: BP 105/55; PULSE 72; RESP 17; TEMP 96.7; O2SAT 99
[2017-03-17 08:00] VITALS: BP 99/52; PULSE 66; RESP 20; TEMP 96.7; O2SAT 97
--- NOTE | 2017-03-17 08:50 | HHI.PR ---
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 labs Objective Vitals Vital Signs Date Time Temp Pulse Resp B/P (MAP) Pulse Ox O2 Delivery O2 Flow Rate FiO2 03/17/17 04:00 96.7 72 17 105/55 (72) 99 03/17/17 00:00 97.9 73 17 104/51 (68) 99 03/16/17 22:00 68 105/58 (74) 03/16/17 20:00 97.1 72 17 106/63 (77) 100 03/16/17 18:09 64 94/53 (67) 03/16/17 16:00 97.0 62 18 94/50 (65) 99 03/16/17 12:00 96.9 69 18 92/52 (65) 98 I/O 03/16/17 03/16/17 03/16/17 03/17/17 03/17/17 03/17/17 07:00 15:00 23:00 07:00 15:00 23:00 Intake Total 300 ml 770 ml 105 ml 205 ml Output Total 300 ml 350 ml 100 ml 325 ml Balance 0 ml 420 ml 5 ml -120 ml Intake Oral 240 ml 720 ml 150 ml IV Total 60 ml 50 ml 105 ml 55 ml Output Urine Total 300 ml 350 ml 100 ml 325 ml # Bowel Movements 1 1 Result Diagram: 03/16/17 0700 03/16/17 07 Other Results Laboratory Tests Test 03/15/17 05:48 03/15/17 05:57 03/16/17 07:00 Blood Urea Nitrogen 18 MG/DL 23 MG/DL Creatinine 1.09 MG/DL 1.31 MG/DL Random Glucose 92 MG/DL 84 MG/DL Total Protein 5.6 GM/DL 5.3 GM/DL Albumin 1.5 GM/DL 1.5 GM/DL Calcium Level 8.1 MG/DL 8.3 MG/DL Phosphorus Level 1.8 MG/DL 2.0 MG/DL Magnesium Level 1.9 MG/DL 1.9 MG/DL Alkaline Phosphatase 447 U/L 444 U/L Aspartate Amino Transf (AST/SGOT) 186 U/L 195 U/L Alanine Aminotransferase (ALT/SGPT) 70 U/L 67 U/L Total Bilirubin 17.6 MG/DL 17.3 MG/DL Sodium Level 134 MEQ/L 133 MEQ/L Potassium Level 3.5 MEQ/L 3.2 MEQ/L Chloride Level 104 MEQ/L 101 MEQ/L Carbon Dioxide Level 20.4 MEQ/L 20.3 MEQ/L Anion Gap 10 MEQ/L 12 MEQ/L Estimat Glomerular Filtration Rate 82 ML/MIN 66 ML/MIN Hemoglobin A1c 3.9 % Free Thyroxine 1.31 NG/DL Thyroid Stimulating Hormone 3rd Gen 1.360 uIU/ML White Blood Count 20.3 TH/MM3 21.6 TH/MM3 Red Blood Count 2.49 MIL/MM3 2.38 MIL/MM3 Hemoglobin 8.0 GM/DL 7.7 GM/DL Hematocrit 23.5 % 22.6 % Mean Corpuscular Volume 94.2 FL 95.0 FL Mean Corpuscular Hemoglobin 32.1 PG 32.3 PG Mean Corpuscular Hemoglobin Concent 34.1 % 34.0 % Red Cell Distribution Width 20.1 % 21.3 % Platelet Count 371 TH/MM3 346 TH/MM3 Mean Platelet Volume 9.0 FL 9.3 FL Neutrophils (%) (Auto) 79.6 % 88.2 % Lymphocytes (%) (Auto) 13.3 % 4.1 % Monocytes (%) (Auto) 6.7 % 7.3 % Eosinophils (%) (Auto) 0.2 % 0.2 % Basophils (%) (Auto) 0.2 % 0.2 % Neutrophils # (Auto) 16.2 TH/MM3 19.0 TH/MM3 Lymphocytes # (Auto) 2.7 TH/MM3 0.9 TH/MM3 Monocytes # (Auto) 1.4 TH/MM3 1.6 TH/MM3 Eosinophils # (Auto) 0.0 TH/MM3 0.0 TH/MM3 Basophils # (Auto) 0.0 TH/MM3 0.0 TH/MM3 CBC Comment AUTO DIFF AUTO DIFF Differential Total Cells Counted 100 100 Neutrophils % (Manual) 87 % 79 % Band Neutrophils % 2 % 6 % Lymphocytes % 5 % 2 % Monocytes % 4 % 10 % Neutrophils # (Manual) 18.5 TH/MM3 18.8 TH/MM3 Metamyelocytes 1 % 2 % Myelocytes 1 % Differential Comment FINAL DIFF MANUAL FINAL DIFF MANUAL Target Cells 2+ 2+ Prothrombin Time 15.0 SEC Prothromb Time International Ratio 1.3 RATIO Ammonia LESS THAN 10 MCMOL/L Basophils % 1 % Platelet Estimate NORMAL Platelet Morphology Comment NORMAL Imaging Last Impressions Ribs X-Ray 03/13/17 0000 Signed Impressions: Service Date/Time: Monday, March 13, 2017 10:14 - CONCLUSION: No acute disease. Weston Westbrook MD Liver Biopsy CT 03/12/17 0757 Signed Impressions: Service Date/Time: Sunday, March 12, 2017 10:46 - CONCLUSION: Uncomplicated CT guided biopsy. Aguila Solano MD Cyst Biopsy Asp-Paracentesis US 03/12/17 0000 Signed Impressions: Service Date/Time: Sunday, March 12, 2017 09:16 - CONCLUSION: Uncomplicated ultrasound guided paracentesis. Aguila Solano MD Abdomen/Pelvis CT 03/11/17 1033 Signed Impressions: Service Date/Time: February 12:12 - CONCLUSION: 1. Extensive hepatic masses consistent with primary or metastatic neoplasm. 2. Multiple non-calcified pulmonary nodules with the largest located in the left lower lobe measuring 2.3 cm consistent with metastatic disease until proven otherwise. 3. Biliary ductal dilatation of indeterminate etiology. MRI of the abdomen with contrast and MRCP may be helpful for further evaluation if clinically indicated. 4. 11 mm splenic nodules which are indeterminate. 5. 2.7 x 1.9 cm left adrenal mass which is indeterminate. 6. Ascites. Aguila Solano MD Lower Extremity Ultrasound 03/11/17 0000 Signed Impressions: Service Date/Time: February 19:37 - CONCLUSION: No DVT. Wseton Maya MD Cholangiopancreatography MRI 03/11/17 0000 Signed Impressions: Service Date/Time: February 18:17 - CONCLUSION: Extensive metastatic disease of the liver and I believe the left lobe intrahepatic ductal dilatation is due to associated mass effect. No intraductal stone or definite tumor demonstrated. Gallbladder and common bile duct are nondistended. Weston Maya MD Chest X-Ray 03/11/17 0000 Signed Impressions: Service Date/Time: February 10:49 - CONCLUSION: Normal examination. José Miguel Martinez MD Objective Remarks GENERAL: AWAKE ALERT AND ORIENTED x3 SKIN: Warm and dry.JAUNDICE HEAD: Atraumatic. Normocephalic. EYES: Pupils equal and round. POSITIVE SCLERAL ICTERUS. No injection or drainage. ENT: No nasal bleeding or discharge. Mucous membranes pink and moist. TONGUE MIDLINE NECK: Trachea midline. No JVD. SUPPLE CARDIOVASCULAR: Regular rate and rhythm. S1, S2 NO S3 OR S4 NO HEAVE OR THRILL RESPIRATORY: No accessory muscle use. Clear to auscultation. Breath sounds equal bilaterally. GASTROINTESTINAL: Abdomen soft, non-tender, nondistended. HEPATOMEGALY. LESS DISTENDED MUSCULOSKELETAL: Extremities without clubbing, cyanosis, PLUS 1 LE EDEMA BL. No obvious deformities. NEUROLOGICAL: Awake and alert. No obvious cranial nerve deficits. Motor grossly within normal limits. Five out of 5 muscle strength in the arms and legs. Normal speech. PSYCHIATRIC: Appropriate mood and affect; insight and judgment normal. Procedures PARACENTESIS AND LIVER BIOPSIES Medications and IVs Current Medications Sodium Chloride (NS Flush) 2 ml UNSCH PRN IV FLUSH FLUSH AFTER USING IV ACCESS ; Start 03/11/17 at 10:45; Stop 03/11/17 at 14:42; Status DC Iohexol (Omnipaque 350 Inj) 99 ml STK-MED ONCE IVCONTRAST Last administered on 03/11/17 12:21; Start 03/11/17 at 12:21; Stop 03/11/17 at 12:22; Status DC Piperacillin Sod/ Tazobactam Sod 50 ml @ 100 mls/hr ONCE ONCE IV Last administered on 03/11/17 12:56; Start 03/11/17 at 12:45; Stop 03/11/17 at 13:14 ; Status DC Sodium Chloride 1,000 ml @ 75 mls/hr [id number] IV Last administered on 04:22; Start 03/11/17 at 15:00; Stop 03/12/17 at 16:58; Status DC Sodium Chloride (NS Flush) 2 ml UNSCH PRN IV FLUSH FLUSH AFTER USING IV ACCESS Last administered on 03/17/17 03:00; Start 03/11/17 at 14:45 Sodium Chloride (NS Flush) 2 ml BID IV FLUSH Last administered on 03/16/17 20: 58; Start 03/11/17 at 21:00 Ondansetron HCl (Zofran Inj) 4 mg Q6H PRN IVP NAUSEA OR VOMITING; Start at 14:45 Naloxone HCl (Narcan Inj) 0.4 mg UNSCH PRN IV PUSH SEE LABEL COMMENTS; Start at 14:45 Senna/Docusate Sodium (Oxana-Colace) 1 tab BID PO Last administered on 08:20; Start 03/11/17 at 21:00; Stop 03/15/17 at 16:55; Status DC Magnesium Hydroxide (Milk Of Magnesia Liq) 30 ml Q12H PRN PO MILD - MODERATE CONSTIPATION; Start 03/11/17 at 14:45 Sennosides (Senokot) 17.2 mg Q12H PRN PO MODERATE - SEVERE CONSTIPATION; Start 03/11/17 at 14:45 Bisacodyl (Dulcolax Supp) 10 mg DAILY PRN RECTAL SEVERE CONSITIPATION; Start at 14:45 Lactulose (Lactulose Liq) 30 ml DAILY PRN PO SEVERE CONSITIPATION; Start at 14:45 Acetaminophen/ Hydrocodone Bitart ([place] 5-325 Mg) 1 tab Q4H PRN PO PAIN SCALE 3 TO 6 Last administered on 03/12/17 21:08; Start 03/11/17 at 14:45; Stop 03/15/17 at 16:32; Status DC Acetaminophen/ Hydrocodone Bitart ([place] 7.5-325 Mg) 1 tab Q6H PRN PO PAIN SCALE 7 TO 10 Last administered on 03/15/17 09:25; Start 03/11/17 at 14:45; Stop 03/15/17 at 16:32; Status DC Digoxin (Lanoxin) 0.125 mg DAILY PO Last administered on 03/16/17 14:26; Start 03/12/17 at 09:00 Enalapril Maleate (Vasotec) 2.5 mg BID PO Last administered on 03/16/17 21:00 ; Start 03/11/17 at 21:00 Furosemide (Lasix) 40 mg DAILY PO Last administered on 03/15/17 09:22; Start 03/12/17 at 09:00 Metoprolol Tartrate (Lopressor) 50 mg BID PO Last administered on 03/16/17 22: 02; Start 03/11/17 at 21:00 Spironolactone (Aldactone) 25 mg BIDPC PO Last administered on 03/16/17 08:06 ; Start 03/11/17 at 18:00 Tamsulosin HCl (Flomax) 0.4 mg HS PO Last administered on 03/16/17 21:00; Start 03/11/17 at 21:00 Piperacillin Sod/ Tazobactam Sod 50 ml @ 100 mls/hr Q6H IV Last administered on 03/17/17 02:25; Start 03/11/17 at 20:00 Metronidazole (Flagyl) 500 mg Q6HR PO Last administered on 03/17/17 05:57; Start 03/11/17 at 18:00 Gadodiamide (Omniscan Pf Inj) 15 ml STK-MED ONCE IVCONTRAST Last administered on 03/11/17 19:05; Start 03/11/17 at 19:05; Stop 03/11/17 at 19:06; Status DC Lidocaine HCl (Xylocaine 1% Inj) 20 ml STK-MED ONCE .ROUTE Last administered on 03/12/17 10:03; Start 03/12/17 at 10:03; Stop 03/12/17 at 10:04; Status DC Fentanyl Citrate (fentaNYL INJ) 200 mcg STK-MED ONCE .ROUTE Last administered on 03/12/17 10:20; Start 03/12/17 at 10:20; Stop 03/12/17 at 10:21; Status DC Midazolam HCl (Versed Inj) 5 mg STK-MED ONCE .ROUTE Last administered on 10:21; Start 03/12/17 at 10:21; Stop 03/12/17 at 10:22; Status DC Potassium Chloride (KCl) 40 meq ONCE ONCE PO Last administered on 03/12/17 17 :56; Start 03/12/17 at 17:00; Stop 03/12/17 at 17:03; Status DC Pantoprazole Sodium (Protonix) 40 mg Q12HR PO Last administered on 03/16/17 21 :00; Start 03/12/17 at 21:00 Morphine Sulfate (Morphine Inj) 2 mg Q4HR PRN IV PUSH BREAKTHROUGH PAIN; Start 03/13/17 at 08:45 Oxycodone HCl (Roxicodone) 10 mg Q4H PRN PO pain 6-10 Last administered on 03/16 18:10; Start 03/15/17 at 16:45 Oxycodone HCl (Roxicodone) 5 mg Q4H PRN PO pain 3-5; Start 03/15/17 at 16:45 Docusate Sodium (Colace) 100 mg TID PO Last administered on 03/16/17 18:09; Start 03/15/17 at 18:00 Senna/Docusate Sodium (Oxana-Colace) 2 tab BID PO ; Start 03/15/17 at 21:00 Urinary Catheter: No Vascular Central Line Catheter: No A/P Problem List: (1) Pain ICD Code: R52 - Pain, unspecified (2) LFT elevation ICD Code: R94.5 - Abnormal results of liver function studies Status: Acute (3) Cardiomyopathy ICD Code: I42.9 - Cardiomyopathy, unspecified Status: Chronic (4) Hypertension ICD Code: I10 - Essential (primary) hypertension Status: Acute (5) Malnutrition ICD Code: E46 - Unspecified protein-calorie malnutrition (6) Dyspnea ICD Code: R06.00 - Dyspnea, unspecified (7) Liver masses ICD Code: R16.0 - Hepatomegaly, not elsewhere classified Status: Acute Assessment and Plan Jaundice/liver masses/weight loss/abdominal pain/hyperbilirubinemia/ascites: - CT abdomen shows extensive hepatic masses consistent with primary or metastatic neoplasm. Multiple noncalcified pulmonary nodules with the largest located in the left lower lobe measuring 2.3 cm consistent with metastatic disease. Biliary ductal dilatation of indeterminate etiology. 11 mm splenic nodules which are indeterminate. 2.7 x 1.9 cm left adrenal mass which is indeterminate. - Ascites. s/p paracentesis. F/u on fluid studies which are pending. - GI following, appreciate their assistance. Recs are: "Palliative care was recommended if the bilirubin increases or if there are any signs of biliary sepsis, may consider ERCP versus PTCA supportive care" - MRCP shows extensive metastatic disease in the liver and likely the left lobe intrahepatic ductal dilatation due to associated mass effect. - Oncology also following, appreciate their assistance - s/p CT guided liver biopsy. Follow up on results. - CEA elevated 8427, AFP 1.6, CA19-9 3.1. suspecting metastatic colon cancer. - Patient presented with leukocytosis of 20.7 and a platelet count of 478. T bili of 22.2, AST 199, ALT 88. Alkaline phosphatase 640. Patient receive a dose of Zosyn in the emergency room. Continue IV Zosyn and Flagyl by mouth. Today T. Bili is 19.6 AST 198 ALT 80. Continue to monitor CMP, CBC and monitor Vitals. Anemia: 8.7 on admission, now 8.0. monitor closely and transfuse if <7.0. Patient admits to blood clots in his stools. hold aspirin. GI following. Hypokalemia: resolved Chest pain: Troponin 0.02 x 2. EKG no ST elevation or depression. atrial enlargement is noted on EKG. Chest pain is unchanged. Pt is known to Dr. Payne , will consult for further assistance. Continue pain control. I will check xray of ribs to r/o any bone lesions that could potentially cause pain as well since pt does have metastasis. blood clots per rectum: GI following. Hold ASA or any anticoagulation for now. BLE edema: Doppler US negative for DVT. Pancreatitis: Lipase level up to 1151. We'll hold off on giving IV fluids as patient already complaining of shortness of breath and has an EF of 30-35%. Clinically abdominal pain is improving. Hypertension:on lasix/spironolactone/enalapril/metoprolol/digoxin systolic CHF: Chest x-ray didn't show any pulm edema, BNP wnl. Suspect SOB is from ascites and increase abdominal girth. monitor. on lasix, digoxin, metoprolol and enalapril. DVT Proph: SCD. Avoid chemical anticoagulation due to anemia and pt passing blood clots. SP PARACENTESIS WILL CONSULT PALLIATIVE CARE Discharge Planning d/c pending further work-up and clinical improvement awaiting liver biopsies. monitor LFTs, T. Bili and pt becomes febrile may need ERCP versus PTCA supportive care As of now pt wishes to pursue aggressive management. GI and oncology following. Appreciate assistance from all consultants. PT AND OT EVAL PATIENT STILL WANTS AGGRESSIVE TREATMENT Pathology came back positive for adenocarcinoma of the colon with metastases to the liver Still wants aggressive therapy Hypokalemia we'll replace Anselmo Disla DO Mar 17, 2017 08:50
[2017-03-17] MEDS: ENALAPRIL MALEATE 2.5 MG TAB PO SCH ×2 (09:00→21:00)
[2017-03-17] MEDS: METOPROLOL TARTRATE 50 MG TAB PO SCH ×2 (09:00→21:00)
[2017-03-17] MEDS: DOCUSATE SODIUM 100 MG CAP PO SCH ×3 (09:00→18:18)
[2017-03-17] MEDS: DOCUSATE SODIUM 50 MG/SENNA 8.6 MG TAB PO SCH ×2 (09:00→21:00)
[2017-03-17] MEDS ORDERED: POTASSIUM CHLORIDE 10 MEQ CONTROLLED RELEASE TAB PO ONE (09:00)
[2017-03-17 09:23] LABS: AUTOMATED NEUTROPHIL # 21.2 TH/MM3 (1.8-7.7); BASOPHIL % 0.1 % (0.0-2.0); EOSINOPHIL % 0.1 % (0.0-4.0); HEMATOCRIT 22.1 % (39.0-51.0); LYMPH % 3.3 % (9.0-44.0); LYMPHOCYTE # 0.8 TH/MM3 (1.0-4.8); MEAN CELL VOLUME 95.2 FL (80.0-100.0); MEAN CORPUSCULAR HEMOGLOBIN 33.2 PG (27.0-34.0); MEAN CORPUSCULAR HGB CONC 34.9 % (32.0-36.0); NEUT % 89.5 % (16.0-70.0); PLATELET COUNT 344 TH/MM3 (150-450); RED BLOOD COUNT 2.32 MIL/MM3 (4.50-5.90); RED CELL DISTRIBUTION WIDTH 20.9 % (11.6-17.2); WHITE BLOOD COUNT 23.7 TH/MM3 (4.0-11.0)
[2017-03-17 09:43] LABS: ANION GAP 12 MEQ/L (5-15); AST (GOT) 164 U/L (15-37); BICARBONATE 19.4 MEQ/L (21.0-32.0); BLOOD UREA NITROGEN 30 MG/DL (7-18); CHLORIDE 98 MEQ/L (98-107); GLOMERULAR FILTRATION RATE 53 ML/MIN (>89); POTASSIUM 3.9 MEQ/L (3.5-5.1); SODIUM (NA) 129 MEQ/L (136-145)
[2017-03-17 09:44] LABS: ALT (GPT) 60 U/L (12-78)
[2017-03-17 09:46] LABS: ALKALINE PHOSPHATASE 454 U/L (45-117); TOTAL BILIRUBIN ADULT 18.7 MG/DL (0.2-1.0)
[2017-03-17 09:50] LABS: HEMO FLAGS AUTO DIFF
[2017-03-17] MEDS: DIGOXIN 0.125 MG TAB PO SCH (09:50)
[2017-03-17] MEDS: SPIRONOLACTONE 25 MG TAB PO SCH ×2 (09:50→18:18)
[2017-03-17] MEDS: FUROSEMIDE 40 MG TAB PO SCH (09:50)
[2017-03-17] MEDS: PANTOPRAZOLE SOD 40 MG DELAYED RELEASE TAB PO SCH ×2 (09:50→21:45)
[2017-03-17] MEDS: SODIUM CHLORIDE 0.9% FLUSH 10 ML FLUSH IV FLUSH SCH ×2 (09:52→21:47)
[2017-03-17] MEDS: POTASSIUM CHLORIDE 10 MEQ CONTROLLED RELEASE TAB PO SCH (09:55)
[2017-03-17 12:00] VITALS: BP 97/58; PULSE 88; RESP 16; TEMP 96.6; O2SAT 100
[2017-03-17 12:55] LABS: BANDS 15 % (0-6); METAMYELOCYTES 1 % (0-1); NEUTROPHIL # MANUAL DIFF 18.5 TH/MM3 (1.8-7.7); PLATELET ESTIMATE SMEAR NORMAL (NORMAL); PLATELET MORPHOLOGY NORMAL (NORMAL); POLYS (SEG NEUTROPHILS) 62 % (16-70); SCAN/DIFF FINAL DIFF MANUAL; TARGET CELLS 2+ (NORMAL); WBC DIFF SAMPLE 100
--- NOTE | 2017-03-17 15:46 | HHI.HCPN ---
Reason for visit a. To assist with evaluation and management of symptoms including:dyspnea, malnutrition, pain b. To assist medical decision maker(s) with: better understanding of current medical conditions; weighing benefits/burdens of medical treatment options; making medical treatment decisions. Subjective/Interval History Follow up today regarding goals of care and comfort. Patient seen and examined in room, sitting up in bed, resting comfortably, eating lunch. No acute events overnight. Patient denies any nausea or vomiting. States his pain remains unresolved, he describes the pain as constant and rates the pain 7/10, he states that when he utilizes his pain medication he has some relief. Received 4 doses of oxicodone 10mg PRN for pain in the past 24 hours, no utilization of morphine 2mg PRN for pain since admission. Dr. 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 Results of the pathology were again discussed today with the patient during my exam, the patient states he is aware of the results and recalls his conversation with Dr. Vasquez. It was then reiterated to the patient that options are very limited and it has been recommend by his medical team that comfort oriented goals are appropriate, the patient states he still wants to pursue aggressive care. Palliative care will continue to follow to assist with goals of care to provide support/guidance regarding medical treatment benefit/burden medical treatment options . Advance Directives Living Will: Never completed Health Care Surrogate: Copy in medical record Durable Power of Valet Attendant: Never completed Advance Directive Specifics Date completed: 03/17/17. . Health Care Surrogate(s): Edita Polk (sister) [phone], . Objective Vital Signs Date Time Temp Pulse Resp B/P (MAP) Pulse Ox O2 Delivery O2 Flow Rate FiO2 03/17/17 12:00 96.6 88 16 97/58 (71) 100 03/17/17 08:00 96.7 66 20 99/52 (68) 97 03/17/17 04:00 96.7 72 17 105/55 (72) 99 03/17/17 00:00 97.9 73 17 104/51 (68) 99 03/16/17 22:00 68 105/58 (74) 03/16/17 20:00 97.1 72 17 106/63 (77) 100 03/16/17 18:09 64 94/53 (67) 03/16/17 16:00 97.0 62 18 94/50 (65) 99 Intake & Output 03/17/17 03/17/17 07:00 19:00 Intake Total 260 ml Output Total 425 ml Balance -165 ml Intake Oral 150 ml IV Total 110 ml Output Urine Total 425 ml . Physical Exam CONSTITUTIONAL/GENERAL: This is a frail, ill-appearing patient TUBES/LINES/DRAINS: PIV x 1 RUE EYES: Pupils equal and round and reactive. Extraocular motions intact.+ scleral icterus. No injection or drainage. Fundi not examined. CARDIOVASCULAR: Regular rate and rhythm without murmurs. Peripheral pulses symmetric. Trace edema BLE. RESPIRATORY/CHEST: Symmetric, unlabored respirations. On room air. Clear to auscultation. Breath sounds equal bilaterally. GASTROINTESTINAL: Abdomen firm, tender, distended. Limited palpation due to tenderness. Bowel sounds active. GENITOURINARY: Without palpable bladder distension. Urinal at bedside w dark orange brown urine noted again today. NEUROLOGICAL: Awake, alert, appropriate. Oriented x 3. Has simple insight. Moves all 4 extremities. PSYCHIATRIC: No obvious anxiety/depression. no apparent hallucinations or other psychotic thought process. . Diagnostic Tests Laboratory Laboratory Tests Test 03/15/17 05:48 03/15/17 05:57 03/16/17 07:00 03/17/17 07:21 Blood Urea Nitrogen 18 MG/DL (7-18) 23 MG/DL (7-18) 30 MG/DL (7-18) Creatinine 1.09 MG/DL (0.60-1.30) 1.31 MG/DL (0.60-1.30) 1.58 MG/DL (0.60-1.30) Random Glucose 92 MG/DL (74-106) 84 MG/DL (74-106) 82 MG/DL (74-106) Total Protein 5.6 GM/DL (6.4-8.2) 5.3 GM/DL (6.4-8.2) 5.4 GM/DL (6.4-8.2) Albumin 1.5 GM/DL (3.4-5.0) 1.5 GM/DL (3.4-5.0) 1.5 GM/DL (3.4-5.0) Calcium Level 8.1 MG/DL (8.5-10.1) 8.3 MG/DL (8.5-10.1) 8.5 MG/DL (8.5-10.1) Phosphorus Level 1.8 MG/DL (2.5-4.9) 2.0 MG/DL (2.5-4.9) 2.1 MG/DL (2.5-4.9) Magnesium Level 1.9 MG/DL (1.5-2.5) 1.9 MG/DL (1.5-2.5) 2.0 MG/DL (1.5-2.5) Alkaline Phosphatase 447 U/L (45-117) 444 U/L (45-117) 454 U/L (45-117) Aspartate Amino Transf (AST/SGOT) 186 U/L (15-37) 195 U/L (15-37) 164 U/L (15-37) Alanine Aminotransferase (ALT/SGPT) 70 U/L (12-78) 67 U/L (12-78) 60 U/L (12-78) Total Bilirubin 17.6 MG/DL (0.2-1.0) 17.3 MG/DL (0.2-1.0) 18.7 MG/DL (0.2-1.0) Sodium Level 134 MEQ/L (136-145) 133 MEQ/L (136-145) 129 MEQ/L (136-145) Potassium Level 3.5 MEQ/L (3.5-5.1) 3.2 MEQ/L (3.5-5.1) 3.9 MEQ/L (3.5-5.1) Chloride Level 104 MEQ/L (98-107) 101 MEQ/L (98-107) 98 MEQ/L (98-107) Carbon Dioxide Level 20.4 MEQ/L (21.0-32.0) 20.3 MEQ/L (21.0-32.0) 19.4 MEQ/L (21.0-32.0) Anion Gap 10 MEQ/L (5-15) 12 MEQ/L (5-15) 12 MEQ/L (5-15) Estimat Glomerular Filtration Rate 82 ML/MIN (>89) 66 ML/MIN (>89) 53 ML/MIN (>89) Hemoglobin A1c 3.9 % (4.3-6.0) Free Thyroxine 1.31 NG/DL (0.76-1.46) Thyroid Stimulating Hormone 3rd Gen 1.360 uIU/ML (0.358-3.740) White Blood Count 20.3 TH/MM3 (4.0-11.0) 21.6 TH/MM3 (4.0-11.0) 23.7 TH/MM3 (4.0-11.0) Red Blood Count 2.49 MIL/MM3 (4.50-5.90) 2.38 MIL/MM3 (4.50-5.90) 2.32 MIL/MM3 (4.50-5.90) Hemoglobin 8.0 GM/DL (13.0-17.0) 7.7 GM/DL (13.0-17.0) 7.7 GM/DL (13.0-17.0) Hematocrit 23.5 % (39.0-51.0) 22.6 % (39.0-51.0) 22.1 % (39.0-51.0) Mean Corpuscular Volume 94.2 FL (80.0-100.0) 95.0 FL (80.0-100.0) 95.2 FL (80.0-100.0) Mean Corpuscular Hemoglobin 32.1 PG (27.0-34.0) 32.3 PG (27.0-34.0) 33.2 PG (27.0-34.0) Mean Corpuscular Hemoglobin Concent 34.1 % (32.0-36.0) 34.0 % (32.0-36.0) 34.9 % (32.0-36.0) Red Cell Distribution Width 20.1 % (11.6-17.2) 21.3 % (11.6-17.2) 20.9 % (11.6-17.2) Platelet Count 371 TH/MM3 (150-450) 346 TH/MM3 (150-450) 344 TH/MM3 (150-450) Mean Platelet Volume 9.0 FL (7.0-11.0) 9.3 FL (7.0-11.0) 9.6 FL (7.0-11.0) Neutrophils (%) (Auto) 79.6 % (16.0-70.0) 88.2 % (16.0-70.0) 89.5 % (16.0-70.0) Lymphocytes (%) (Auto) 13.3 % (9.0-44.0) 4.1 % (9.0-44.0) 3.3 % (9.0-44.0) Monocytes (%) (Auto) 6.7 % (0.0-8.0) 7.3 % (0.0-8.0) 7.0 % (0.0-8.0) Eosinophils (%) (Auto) 0.2 % (0.0-4.0) 0.2 % (0.0-4.0) 0.1 % (0.0-4.0) Basophils (%) (Auto) 0.2 % (0.0-2.0) 0.2 % (0.0-2.0) 0.1 % (0.0-2.0) Neutrophils # (Auto) 16.2 TH/MM3 (1.8-7.7) 19.0 TH/MM3 (1.8-7.7) 21.2 TH/MM3 (1.8-7.7) Lymphocytes # (Auto) 2.7 TH/MM3 (1.0-4.8) 0.9 TH/MM3 (1.0-4.8) 0.8 TH/MM3 (1.0-4.8) Monocytes # (Auto) 1.4 TH/MM3 (0-0.9) 1.6 TH/MM3 (0-0.9) 1.7 TH/MM3 (0-0.9) Eosinophils # (Auto) 0.0 TH/MM3 (0-0.4) 0.0 TH/MM3 (0-0.4) 0.0 TH/MM3 (0-0.4) Basophils # (Auto) 0.0 TH/MM3 (0-0.2) 0.0 TH/MM3 (0-0.2) 0.0 TH/MM3 (0-0.2) CBC Comment AUTO DIFF AUTO DIFF AUTO DIFF Differential Total Cells Counted 100 100 100 Neutrophils % (Manual) 87 % (16-70) 79 % (16-70) 62 % (16-70) Band Neutrophils % 2 % (0-6) 6 % (0-6) 15 % (0-6) Lymphocytes % 5 % (9-44) 2 % (9-44) 10 % (9-44) Monocytes % 4 % (0-8) 10 % (0-8) 12 % (0-8) Neutrophils # (Manual) 18.5 TH/MM3 (1.8-7.7) 18.8 TH/MM3 (1.8-7.7) 18.5 TH/MM3 (1.8-7.7) Metamyelocytes 1 % (0-1) 2 % (0-1) 1 % (0-1) Myelocytes 1 % (0-0) Differential Comment FINAL DIFF MANUAL FINAL DIFF MANUAL FINAL DIFF MANUAL Target Cells 2+ (NORMAL) 2+ (NORMAL) 2+ (NORMAL) Prothrombin Time 15.0 SEC (9.8-11.6) Prothromb Time International Ratio 1.3 RATIO Ammonia LESS THAN 10 MCMOL/L Basophils % 1 % (0-2) Platelet Estimate NORMAL (NORMAL) NORMAL (NORMAL) Platelet Morphology Comment NORMAL (NORMAL) NORMAL (NORMAL) . Result Diagram: 03/17/17 0721 03/17/17 0721 Procedures 03/12/17-Liver biopsy: findings most consistent with metastatic colonic adenocarcinoma. . 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 Adult child who lives out of the area, whom he has had no communication with. No children. Lives at home alone. Supported by a sister and brother. Born and raised in [facility]. Spiritual: Believes in God, supported by his sister, does not want comprehensive ophthalmologist support at this time Legal: None known. Ethical issues impacting care: None known. . Important Contacts Sister Edita Polk [phone], Friend Bala Maxwell [phone] Prognosis This patient was admitted for abdominal pain, chest pain. Liver biopsy pathology findings consistent with metastatic colonic adenocarcinoma. Due to patient's poor ECOG performance status and hepatic dysfunction he is a poor candidate for treatment. Appropriate for hospice if goals were compatible. Code Status: Full Code Plan * Legal decision maker:Pt appears capacitated to make decisions. Patient designated his sister Edita Polk [phone], as his HCS. * Goals: Patient seems to have simple insight to possible disease process. Patient states today his goals remain aggressive despite recent results of biopsy and discussion with oncology regarding limited treatment options. Further discussion today regarding treatment options and transition to comfort focused goals. * Patient states he does not want Hospice. crinkling machine operator notified, will follow peripherally available PRN. * Discussed with bedside RN, Hong. * CODE STATUS: Full code. Further discussion today regarding code status. Discussed risks, benefits, and limitations of cardiopulmonary resuscitation given patient's overall poor prognosis and progressive metastatic disease. Patient states he would like to remain a full code. * SYMPTOMS: --Chest [id number] chest pain which radiates down and around back. Indicates a little better during hospital course but pretty much constant, sharp at times. Some relief when using oral pain medicine does not wish to use other pain medications. Concern for increasing pain medication given hypotension some systolic BPs in the 90s. If goals were comfort oriented could consider up titrating. Patient with known history of CHF, per records has previously been recommended for pacemaker, cardiovascular intervention which the patient refused. --Abdominal pain- 2/2 metastatic disease process. Patient endorses pain 7/10 and unchanged. Again some concern and caution regarding increasing pain medication due to hypotension, if goals were comfort oriented could consider up titration. Oxycodone 10mg q 4hr PRN. Cont to have PRN IV morphine available. --Dyspnea-patient does not appear short of breath but subjectively endorses feeling short of breath even during conversation. This may be secondary to abdominal pressure and disease process. Lungs are clear and O2 sats have been 99-100%. Will continue to monitor. No recommendations at this time. --Malnutrition- Endorses fair appetite, states he has never had a big appetite. Weight loss 15-20 pounds in the past 6 months. Albumin 1.5. May benefit from nutrition supplement. * Palliative care will continue to follow during hospital course as condition evolves, to assist patient/decision-maker with understanding of medical conditions, weighing benefits/burdens of treatment options, for clarification of goals of treatment. Additionally will assist with any symptoms of palliative concern Attestation To help prompt me to consider important information that might be impacting today's encounter and assessment, information from prior notes written by myself or my colleagues may have been "brought forward" into today's note. My signature on this note, however, is an attestation that I personally performed the exam, history, and/or decision-making noted today, and, unless otherwise indicated, the interactions with patient, family, and staff as well as the review of records all occurred today. I also attest that the listed assessment and stated plan reflect my best clinical judgment today based on the combination of historical information, prior notes, and today's exam/ interactions. When time spent is documented, it refers only to time spent today by the signer, or if indicated, combined time spent today by collaborating physician/nurse practitioner. Madalyn Giraldo Mar 17, 2017 15:46
[2017-03-17 16:00] VITALS: BP 97/58; PULSE 76; RESP 16; TEMP 96.1; O2SAT 99
[2017-03-17 20:00] VITALS: BP 94/45; PULSE 75; RESP 17; TEMP 97.1; O2SAT 98
[2017-03-17] MEDS: TAMSULOSIN HCL 0.4 MG CAP PO SCH (21:45)
[2017-03-18] VITALS: BP 93/53; PULSE 76; RESP 17; TEMP 98; O2SAT 98
[2017-03-18] MEDS: PIPERACIL-TAZO 3.375 GM PREMIX 50 ML IV SCH ×2 (02:49→08:50)
[2017-03-18 04:00] VITALS: BP 120/65; PULSE 83; RESP 17; TEMP 97.7; O2SAT 99
[2017-03-18] MEDS: metroNIDAZOLE 500 MG TAB PO SCH ×4 (05:20→23:08)
[2017-03-18 06:50] LABS: AUTOMATED NEUTROPHIL # 18.4 TH/MM3 (1.8-7.7); BASOPHIL % 0.1 % (0.0-2.0); EOSINOPHIL % 0.2 % (0.0-4.0); HEMATOCRIT 22.5 % (39.0-51.0); LYMPH % 3.3 % (9.0-44.0); LYMPHOCYTE # 0.7 TH/MM3 (1.0-4.8); MEAN CELL VOLUME 95.7 FL (80.0-100.0); MEAN CORPUSCULAR HEMOGLOBIN 32.9 PG (27.0-34.0); MEAN CORPUSCULAR HGB CONC 34.4 % (32.0-36.0); MONO % 7.3 % (0.0-8.0); NEUT % 89.1 % (16.0-70.0); PLATELET COUNT 376 TH/MM3 (150-450); RED BLOOD COUNT 2.35 MIL/MM3 (4.50-5.90); RED CELL DISTRIBUTION WIDTH 21.1 % (11.6-17.2); WHITE BLOOD COUNT 20.7 TH/MM3 (4.0-11.0)
[2017-03-18 06:53] LABS: HEMO FLAGS AUTO DIFF
[2017-03-18 07:15] LABS: ALKALINE PHOSPHATASE 420 U/L (45-117); ALT (GPT) 56 U/L (12-78); ANION GAP 12 MEQ/L (5-15); AST (GOT) 148 U/L (15-37); BICARBONATE 18.6 MEQ/L (21.0-32.0); BLOOD UREA NITROGEN 34 MG/DL (7-18); CHLORIDE 98 MEQ/L (98-107); GLOMERULAR FILTRATION RATE 48 ML/MIN (>89); MAGNESIUM 2.2 MG/DL (1.5-2.5); POTASSIUM 4.8 MEQ/L (3.5-5.1); SODIUM (NA) 129 MEQ/L (136-145); TOTAL BILIRUBIN ADULT 19.1 MG/DL (0.2-1.0)
[2017-03-18 08:00] VITALS: BP 100/62; PULSE 86; RESP 20; TEMP 98.1; O2SAT 98
[2017-03-18 08:05] LABS: BANDS 3 % (0-6); MYELOCYTES 2 % (0-0); PLATELET ESTIMATE SMEAR NORMAL (NORMAL); PLATELET MORPHOLOGY NORMAL (NORMAL); POLYS (SEG NEUTROPHILS) 87 % (16-70); SCAN/DIFF FINAL DIFF MANUAL; TARGET CELLS 1+ (NORMAL); WBC DIFF SAMPLE 100
--- NOTE | 2017-03-18 08:15 | HHI.PR ---
Subjective Remarks Pt states that his abd pain is about 7/10. would like some pain meds and would also like 2 cups of orange juice and 1 cup of coffee. States his leg swelling is increasing again. When asked about hospice, he tells me that he is very independent and wants to keep his place. he would like to go w his sister and still keep his place. He is agreeable to speak w the hospice nurse in the presence of his sister and see what other options he would have. Maybe go to his sister's house w hospice care? Objective Vitals Vital Signs Date Time Temp Pulse Resp B/P (MAP) Pulse Ox O2 Delivery O2 Flow Rate FiO2 03/18/17 04:00 97.7 83 17 120/65 (83) 99 03/18/17 00:00 98.0 76 17 93/53 (66) 98 03/17/17 20:00 97.1 75 17 94/45 (61) 98 03/17/17 16:00 96.1 76 16 97/58 (71) 99 03/17/17 12:00 96.6 88 16 97/58 (71) 100 I/O 03/17/17 03/17/17 03/17/17 03/18/17 03/18/17 03/18/17 07:00 15:00 23:00 07:00 15:00 23:00 Intake Total 205 ml 720 ml Output Total 325 ml 3 ml 300 ml Balance -120 ml 717 ml -300 ml Intake Oral 150 ml 720 ml IV Total 55 ml Output Urine Total 325 ml 3 ml 300 ml # Bowel Movements 2 Result Diagram: 03/18/17 0546 03/18/17 0546 Imaging Last Impressions Ribs X-Ray 03/13/17 0000 Signed Impressions: Service Date/Time: Monday, March 13, 2017 10:14 - CONCLUSION: No acute disease. Weston Westbrook MD Liver Biopsy CT 03/12/17 0757 Signed Impressions: Service Date/Time: Sunday, March 12, 2017 10:46 - CONCLUSION: Uncomplicated CT guided biopsy. Aguila Solano MD Cyst Biopsy Asp-Paracentesis US 03/12/17 0000 Signed Impressions: Service Date/Time: Sunday, March 12, 2017 09:16 - CONCLUSION: Uncomplicated ultrasound guided paracentesis. Aguila Solano MD Abdomen/Pelvis CT 03/11/17 1033 Signed Impressions: Service Date/Time: February 12:12 - CONCLUSION: 1. Extensive hepatic masses consistent with primary or metastatic neoplasm. 2. Multiple non-calcified pulmonary nodules with the largest located in the left lower lobe measuring 2.3 cm consistent with metastatic disease until proven otherwise. 3. Biliary ductal dilatation of indeterminate etiology. MRI of the abdomen with contrast and MRCP may be helpful for further evaluation if clinically indicated. 4. 11 mm splenic nodules which are indeterminate. 5. 2.7 x 1.9 cm left adrenal mass which is indeterminate. 6. Ascites. Aguila Solano MD Lower Extremity Ultrasound 03/11/17 0000 Signed Impressions: Service Date/Time: February 19:37 - CONCLUSION: No DVT. Weston Maya MD Cholangiopancreatography MRI 03/11/17 0000 Signed Impressions: Service Date/Time: February 18:17 - CONCLUSION: Extensive metastatic disease of the liver and I believe the left lobe intrahepatic ductal dilatation is due to associated mass effect. No intraductal stone or definite tumor demonstrated. Gallbladder and common bile duct are nondistended. Weston Maya MD Chest X-Ray 03/11/17 0000 Signed Impressions: Service Date/Time: February 10:49 - CONCLUSION: Normal examination. José Miguel Martinez MD Objective Remarks GENERAL: cachectic male, laying in bed, very pleasant. Awake and alert. EYES: scleral icterus noted. No injection or drainage. ENT: Nose without drainage. Airway patent. NECK: Trachea midline. CARDIOVASCULAR: Regular rate and rhythm . unreproducible chest pain RESPIRATORY: Mild crackles noted in right base. No wheezes appreciated. GASTROINTESTINAL: Abdomen soft, somewhat distended. Less tenderness to palpation. (+)Hepatomegaly. MUSCULOSKELETAL: Extremities pitting 1+ edema especially at the feet and ankles left greater than right. NEUROLOGICAL: Awake and alert. Able to move all extremities. Normal speech. Procedures PARACENTESIS AND LIVER BIOPSIES A/P Problem List: (1) Pain ICD Code: R52 - Pain, unspecified (2) LFT elevation ICD Code: R94.5 - Abnormal results of liver function studies Status: Acute (3) Cardiomyopathy ICD Code: I42.9 - Cardiomyopathy, unspecified Status: Chronic (4) Hypertension ICD Code: I10 - Essential (primary) hypertension Status: Acute (5) Malnutrition ICD Code: E46 - Unspecified protein-calorie malnutrition (6) Dyspnea ICD Code: R06.00 - Dyspnea, unspecified (7) Liver masses ICD Code: R16.0 - Hepatomegaly, not elsewhere classified Status: Acute Assessment and Plan Jaundice/liver masses/weight loss/abdominal pain/hyperbilirubinemia/ascites: - CT abdomen shows extensive hepatic masses consistent with primary or metastatic neoplasm. Multiple noncalcified pulmonary nodules with the largest located in the left lower lobe measuring 2.3 cm consistent with metastatic disease. Biliary ductal dilatation of indeterminate etiology. 11 mm splenic nodules which are indeterminate. 2.7 x 1.9 cm left adrenal mass which is indeterminate. - Ascites. s/p paracentesis. F/u on fluid studies which are pending. - GI following, appreciate their assistance. Recs are: "Palliative care was recommended if the bilirubin increases or if there are any signs of biliary sepsis, may consider ERCP versus PTCA supportive care" - MRCP shows extensive metastatic disease in the liver and likely the left lobe intrahepatic ductal dilatation due to associated mass effect. - Oncology evaluated the patient. Liver biopsy showed metastatic adenocarcinoma w colon CA as primary. Oncology recommends hospice. Pt refused to go to the care center because he states he is independant. He is agreeable to speak w business team leader in the presence of his sister. He wishes to go to his sister's house and keep his home. Discussed w his RN and ask that she contact business team leader and notify her of this. - CEA elevated 8427, AFP 1.6, CA19-9 3.1. suspecting metastatic colon cancer. - Patient presented with leukocytosis of 20.7 and a platelet count of 478. T bili of 22.2, AST 199, ALT Continue to monitor CMP, CBC and monitor Vitals. Anemia: 8.7 on admission, now 7.7. monitor closely and transfuse if <7.0. hold aspirin. GI following. Hypokalemia: resolved Chest pain: Troponin 0.02 x 2. EKG no ST elevation or depression. atrial enlargement is noted on EKG. Chest pain is unchanged. Pt is known to Dr. Payne , will consult for further assistance. Continue pain control. xray of ribs neg blood clots per rectum: GI following. Hold ASA or any anticoagulation for now. BLE edema: Doppler US negative for DVT. Pancreatitis: Lipase level up to 1151. We'll hold off on giving IV fluids as patient already complaining of shortness of breath and has an EF of 30-35%. Clinically abdominal pain is improving. Hypertension:on lasix/spironolactone/enalapril/metoprolol/digoxin systolic CHF: Chest x-ray didn't show any pulm edema, BNP wnl. Suspect SOB is from ascites and increase abdominal girth. monitor. on lasix, digoxin, metoprolol and enalapril. DVT Proph: SCD. Avoid chemical anticoagulation due to anemia and pt passing blood clots. Discharge Planning oncology recommends hospice. palliative care following. will re-consult hospice as pt would like to meet w them in the presence of his sister. Alejandra Pool MD Mar 18, 2017 08:15
[2017-03-18] MEDS: FUROSEMIDE 40 MG TAB PO SCH (08:51)
[2017-03-18] MEDS: PANTOPRAZOLE SOD 40 MG DELAYED RELEASE TAB PO SCH ×2 (08:51→20:28)
[2017-03-18] MEDS: SPIRONOLACTONE 25 MG TAB PO SCH ×2 (08:51→18:28)
[2017-03-18] MEDS: SODIUM CHLORIDE 0.9% FLUSH 10 ML FLUSH IV FLUSH SCH ×2 (08:52→20:29)
[2017-03-18] MEDS: DOCUSATE SODIUM 100 MG CAP PO SCH ×3 (08:52→18:28)
[2017-03-18] MEDS: DOCUSATE SODIUM 50 MG/SENNA 8.6 MG TAB PO SCH ×2 (08:52→20:29)
[2017-03-18] MEDS: DIGOXIN 0.125 MG TAB PO SCH (08:53)
[2017-03-18] MEDS: METOPROLOL TARTRATE 50 MG TAB PO SCH ×2 (08:53→20:25)
[2017-03-18] MEDS: ENALAPRIL MALEATE 2.5 MG TAB PO SCH ×2 (08:53→20:25)
[2017-03-18] MEDS: POTASSIUM CHLORIDE 10 MEQ CONTROLLED RELEASE TAB PO SCH (08:54)
[2017-03-18 12:00] VITALS: BP 96/55; PULSE 71; RESP 20; TEMP 96.4; O2SAT 100
[2017-03-18 16:00] VITALS: BP 95/52; PULSE 87; RESP 20; TEMP 98.4; O2SAT 100
[2017-03-18 20:00] VITALS: BP 92/55; PULSE 78; RESP 18; TEMP 98.2; O2SAT 98
[2017-03-18] MEDS: TAMSULOSIN HCL 0.4 MG CAP PO SCH (20:28)
[2017-03-19 00:33] VITALS: BP 103/57; PULSE 88; RESP 16; TEMP 98.3; O2SAT 99
[2017-03-19 04:00] VITALS: BP 108/88; PULSE 88; RESP 18; TEMP 96.6; O2SAT 97
[2017-03-19] MEDS: metroNIDAZOLE 500 MG TAB PO SCH ×2 (05:23→13:52)
[2017-03-19 08:30] VITALS: BP 114/64; PULSE 94; RESP 20; TEMP 96.5; O2SAT 97
[2017-03-19] MEDS: PANTOPRAZOLE SOD 40 MG DELAYED RELEASE TAB PO SCH (09:15)
[2017-03-19] MEDS: METOPROLOL TARTRATE 50 MG TAB PO SCH (09:15)
[2017-03-19] MEDS: SODIUM CHLORIDE 0.9% FLUSH 10 ML FLUSH IV FLUSH SCH (09:15)
[2017-03-19] MEDS: SPIRONOLACTONE 25 MG TAB PO SCH (09:15)
[2017-03-19] MEDS: FUROSEMIDE 40 MG TAB PO SCH (09:15)
[2017-03-19] MEDS: DOCUSATE SODIUM 100 MG CAP PO SCH ×2 (09:16→13:50)
[2017-03-19] MEDS: DIGOXIN 0.125 MG TAB PO SCH (09:16)
[2017-03-19] MEDS: POTASSIUM CHLORIDE 10 MEQ CONTROLLED RELEASE TAB PO SCH (09:17)
[2017-03-19] MEDS: DOCUSATE SODIUM 50 MG/SENNA 8.6 MG TAB PO SCH (09:19)
[2017-03-19] MEDS: ENALAPRIL MALEATE 2.5 MG TAB PO SCH (09:26)
--- NOTE | 2017-03-19 12:04 | HHI.PR ---
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 labs 03-18 SIGNED UP WITH HOSPICE WILL GO HOME TO HIS [facility] TODAY 03-19 AWAIT DELIVERY OF EQUIPMENT AT [facility] AND WILL DC UNDER HOME HOSPICE CARE TODAY COMPLAINS OF ABDOMINAL PAIN Objective Vitals Vital Signs Date Time Temp Pulse Resp B/P (MAP) Pulse Ox O2 Delivery O2 Flow Rate FiO2 03/19/17 08:30 96.5 94 20 114/64 (81) 97 03/19/17 04:00 96.6 88 18 108/88 (95) 97 03/19/17 00:33 98.3 88 16 103/57 (72) 99 03/18/17 20:00 98.2 78 18 92/55 (67) 98 03/18/17 16:00 98.4 87 20 95/52 (66) 100 I/O 03/18/17 03/18/17 03/18/17 03/19/17 03/19/17 03/19/17 07:00 15:00 23:00 07:00 15:00 23:00 Intake Total 50 ml 720 ml Output Total 300 ml 1000 ml 150 ml Balance -300 ml 50 ml -280 ml -150 ml Intake Oral 720 ml IV Total 50 ml Output Urine Total 300 ml 1000 ml 150 ml # Bowel Movements 1 Result Diagram: 03/18/17 0546 03/18/17 0546 Other Results Laboratory Tests Test 03/17/17 07:21 03/18/17 05:46 White Blood Count 23.7 TH/MM3 20.7 TH/MM3 Red Blood Count 2.32 MIL/MM3 2.35 MIL/MM3 Hemoglobin 7.7 GM/DL 7.7 GM/DL Hematocrit 22.1 % 22.5 % Mean Corpuscular Volume 95.2 FL 95.7 FL Mean Corpuscular Hemoglobin 33.2 PG 32.9 PG Mean Corpuscular Hemoglobin Concent 34.9 % 34.4 % Red Cell Distribution Width 20.9 % 21.1 % Platelet Count 344 TH/MM3 376 TH/MM3 Mean Platelet Volume 9.6 FL 9.2 FL Neutrophils (%) (Auto) 89.5 % 89.1 % Lymphocytes (%) (Auto) 3.3 % 3.3 % Monocytes (%) (Auto) 7.0 % 7.3 % Eosinophils (%) (Auto) 0.1 % 0.2 % Basophils (%) (Auto) 0.1 % 0.1 % Neutrophils # (Auto) 21.2 TH/MM3 18.4 TH/MM3 Lymphocytes # (Auto) 0.8 TH/MM3 0.7 TH/MM3 Monocytes # (Auto) 1.7 TH/MM3 1.5 TH/MM3 Eosinophils # (Auto) 0.0 TH/MM3 0.0 TH/MM3 Basophils # (Auto) 0.0 TH/MM3 0.0 TH/MM3 CBC Comment AUTO DIFF AUTO DIFF Differential Total Cells Counted 100 100 Neutrophils % (Manual) 62 % 87 % Band Neutrophils % 15 % 3 % Lymphocytes % 10 % 4 % Monocytes % 12 % 4 % Neutrophils # (Manual) 18.5 TH/MM3 19.0 TH/MM3 Metamyelocytes 1 % Differential Comment FINAL DIFF MANUAL FINAL DIFF MANUAL Platelet Estimate NORMAL NORMAL Platelet Morphology Comment NORMAL NORMAL Target Cells 2+ 1+ Blood Urea Nitrogen 30 MG/DL 34 MG/DL Creatinine 1.58 MG/DL 1.72 MG/DL Random Glucose 82 MG/DL 85 MG/DL Total Protein 5.4 GM/DL 5.7 GM/DL Albumin 1.5 GM/DL 1.4 GM/DL Calcium Level 8.5 MG/DL 8.4 MG/DL Phosphorus Level 2.1 MG/DL 2.2 MG/DL Magnesium Level 2.0 MG/DL 2.2 MG/DL Alkaline Phosphatase 454 U/L 420 U/L Aspartate Amino Transf (AST/SGOT) 164 U/L 148 U/L Alanine Aminotransferase (ALT/SGPT) 60 U/L 56 U/L Total Bilirubin 18.7 MG/DL 19.1 MG/DL Sodium Level 129 MEQ/L 129 MEQ/L Potassium Level 3.9 MEQ/L 4.8 MEQ/L Chloride Level 98 MEQ/L 98 MEQ/L Carbon Dioxide Level 19.4 MEQ/L 18.6 MEQ/L Anion Gap 12 MEQ/L 12 MEQ/L Estimat Glomerular Filtration Rate 53 ML/MIN 48 ML/MIN Myelocytes 2 % Imaging Last Impressions Ribs X-Ray 03/13/17 0000 Signed Impressions: Service Date/Time: Monday, March 13, 2017 10:14 - CONCLUSION: No acute disease. Weston Westbrook MD Liver Biopsy CT 03/12/17 0757 Signed Impressions: Service Date/Time: Sunday, March 12, 2017 10:46 - CONCLUSION: Uncomplicated CT guided biopsy. Aguila Solano MD Cyst Biopsy Asp-Paracentesis US 03/12/17 0000 Signed Impressions: Service Date/Time: Sunday, March 12, 2017 09:16 - CONCLUSION: Uncomplicated ultrasound guided paracentesis. Aguila Solano MD Abdomen/Pelvis CT 03/11/17 1033 Signed Impressions: Service Date/Time: February 12:12 - CONCLUSION: 1. Extensive hepatic masses consistent with primary or metastatic neoplasm. 2. Multiple non-calcified pulmonary nodules with the largest located in the left lower lobe measuring 2.3 cm consistent with metastatic disease until proven otherwise. 3. Biliary ductal dilatation of indeterminate etiology. MRI of the abdomen with contrast and MRCP may be helpful for further evaluation if clinically indicated. 4. 11 mm splenic nodules which are indeterminate. 5. 2.7 x 1.9 cm left adrenal mass which is indeterminate. 6. Ascites. Aguila Solano MD Lower Extremity Ultrasound 03/11/17 0000 Signed Impressions: Service Date/Time: February 19:37 - CONCLUSION: No DVT. Weston Maya MD Cholangiopancreatography MRI 03/11/17 0000 Signed Impressions: Service Date/Time: February 18:17 - CONCLUSION: Extensive metastatic disease of the liver and I believe the left lobe intrahepatic ductal dilatation is due to associated mass effect. No intraductal stone or definite tumor demonstrated. Gallbladder and common bile duct are nondistended. Weston Maya MD Chest X-Ray 03/11/17 0000 Signed Impressions: Service Date/Time: February 10:49 - CONCLUSION: Normal examination. José Miguel Martinez MD Objective Remarks GENERAL: AWAKE ALERT AND ORIENTED x3 SKIN: Warm and dry.JAUNDICE HEAD: Atraumatic. Normocephalic. EYES: Pupils equal and round. POSITIVE SCLERAL ICTERUS. No injection or drainage. ENT: No nasal bleeding or discharge. Mucous membranes pink and moist. TONGUE MIDLINE NECK: Trachea midline. No JVD. SUPPLE CARDIOVASCULAR: Regular rate and rhythm. S1, S2 NO S3 OR S4 NO HEAVE OR THRILL RESPIRATORY: No accessory muscle use. Clear to auscultation. Breath sounds equal bilaterally. GASTROINTESTINAL: Abdomen soft, non-tender, nondistended. HEPATOMEGALY. LESS DISTENDED MUSCULOSKELETAL: Extremities without clubbing, cyanosis, PLUS 1 LE EDEMA BL. No obvious deformities. NEUROLOGICAL: Awake and alert. No obvious cranial nerve deficits. Motor grossly within normal limits. Five out of 5 muscle strength in the arms and legs. Normal speech. PSYCHIATRIC: Appropriate mood and affect; insight and judgment normal. Procedures PARACENTESIS AND LIVER BIOPSIES Medications and IVs Current Medications Sodium Chloride (NS Flush) 2 ml UNSCH PRN IV FLUSH FLUSH AFTER USING IV ACCESS ; Start 03/11/17 at 10:45; Stop 03/11/17 at 14:42; Status DC Iohexol (Omnipaque 350 Inj) 99 ml STK-MED ONCE IVCONTRAST Last administered on 03/11/17 12:21; Start 03/11/17 at 12:21; Stop 03/11/17 at 12:22; Status DC Piperacillin Sod/ Tazobactam Sod 50 ml @ 100 mls/hr ONCE ONCE IV Last administered on 03/11/17 12:56; Start 03/11/17 at 12:45; Stop 03/11/17 at 13:14 ; Status DC Sodium Chloride 1,000 ml @ 75 mls/hr [id number] IV Last administered on 04:22; Start 03/11/17 at 15:00; Stop 03/12/17 at 16:58; Status DC Sodium Chloride (NS Flush) 2 ml UNSCH PRN IV FLUSH FLUSH AFTER USING IV ACCESS Last administered on 03/17/17 03:00; Start 03/11/17 at 14:45 Sodium Chloride (NS Flush) 2 ml BID IV FLUSH Last administered on 03/19/17 09: 15; Start 03/11/17 at 21:00 Ondansetron HCl (Zofran Inj) 4 mg Q6H PRN IVP NAUSEA OR VOMITING; Start at 14:45 Naloxone HCl (Narcan Inj) 0.4 mg UNSCH PRN IV PUSH SEE LABEL COMMENTS; Start at 14:45 Senna/Docusate Sodium (Oxana-Colace) 1 tab BID PO Last administered on 08:20; Start 03/11/17 at 21:00; Stop 03/15/17 at 16:55; Status DC Magnesium Hydroxide (Milk Of Magnesia Liq) 30 ml Q12H PRN PO MILD - MODERATE CONSTIPATION; Start 03/11/17 at 14:45 Sennosides (Senokot) 17.2 mg Q12H PRN PO MODERATE - SEVERE CONSTIPATION; Start 03/11/17 at 14:45 Bisacodyl (Dulcolax Supp) 10 mg DAILY PRN RECTAL SEVERE CONSITIPATION; Start at 14:45 Lactulose (Lactulose Liq) 30 ml DAILY PRN PO SEVERE CONSITIPATION; Start at 14:45 Acetaminophen/ Hydrocodone Bitart ([place] 5-325 Mg) 1 tab Q4H PRN PO PAIN SCALE 3 TO 6 Last administered on 03/12/17 21:08; Start 03/11/17 at 14:45; Stop 03/15/17 at 16:32; Status DC Acetaminophen/ Hydrocodone Bitart ([place] 7.5-325 Mg) 1 tab Q6H PRN PO PAIN SCALE 7 TO 10 Last administered on 03/15/17 09:25; Start 03/11/17 at 14:45; Stop 03/15/17 at 16:32; Status DC Digoxin (Lanoxin) 0.125 mg DAILY PO Last administered on 03/19/17 09:16; Start 03/12/17 at 09:00 Enalapril Maleate (Vasotec) 2.5 mg BID PO Last administered on 03/18/17 08:53 ; Start 03/11/17 at 21:00 Furosemide (Lasix) 40 mg DAILY PO Last administered on 03/19/17 09:15; Start 03/12/17 at 09:00 Metoprolol Tartrate (Lopressor) 50 mg BID PO Last administered on 03/19/17 09: 15; Start 03/11/17 at 21:00 Spironolactone (Aldactone) 25 mg BIDPC PO Last administered on 03/19/17 09:15 ; Start 03/11/17 at 18:00 Tamsulosin HCl (Flomax) 0.4 mg HS PO Last administered on 03/18/17 20:28; Start 03/11/17 at 21:00 Piperacillin Sod/ Tazobactam Sod 50 ml @ 100 mls/hr Q6H IV Last administered on 03/18/17 08:50; Start 03/11/17 at 20:00; Stop 03/18/17 at 10:47; Status DC Metronidazole (Flagyl) 500 mg Q6HR PO Last administered on 03/19/17 05:23; Start 03/11/17 at 18:00 Gadodiamide (Omniscan Pf Inj) 15 ml STK-MED ONCE IVCONTRAST Last administered on 03/11/17 19:05; Start 03/11/17 at 19:05; Stop 03/11/17 at 19:06; Status DC Lidocaine HCl (Xylocaine 1% Inj) 20 ml STK-MED ONCE .ROUTE Last administered on 03/12/17 10:03; Start 03/12/17 at 10:03; Stop 03/12/17 at 10:04; Status DC Fentanyl Citrate (fentaNYL INJ) 200 mcg STK-MED ONCE .ROUTE Last administered on 03/12/17 10:20; Start 03/12/17 at 10:20; Stop 03/12/17 at 10:21; Status DC Midazolam HCl (Versed Inj) 5 mg STK-MED ONCE .ROUTE Last administered on 10:21; Start 03/12/17 at 10:21; Stop 03/12/17 at 10:22; Status DC Potassium Chloride (KCl) 40 meq ONCE ONCE PO Last administered on 03/12/17 17 :56; Start 03/12/17 at 17:00; Stop 03/12/17 at 17:03; Status DC Pantoprazole Sodium (Protonix) 40 mg Q12HR PO Last administered on 03/19/17 09 :15; Start 03/12/17 at 21:00 Morphine Sulfate (Morphine Inj) 2 mg Q4HR PRN IV PUSH BREAKTHROUGH PAIN; Start 03/13/17 at 08:45 Oxycodone HCl (Roxicodone) 10 mg Q4H PRN PO pain 6-10 Last administered on 03/19 09:28; Start 03/15/17 at 16:45 Oxycodone HCl (Roxicodone) 5 mg Q4H PRN PO pain 3-5; Start 03/15/17 at 16:45 Docusate Sodium (Colace) 100 mg TID PO Last administered on 03/18/17 13:30; Start 03/15/17 at 18:00 Senna/Docusate Sodium (Oxana-Colace) 2 tab BID PO Last administered on 08:52; Start 03/15/17 at 21:00 Potassium Chloride (KCl) 40 meq ONCE ONCE PO Last administered on 03/17/17 09 :54; Start 03/17/17 at 09:00; Stop 03/17/17 at 09:01; Status DC Potassium Chloride (KCl) 40 meq DAILY PO Last administered on 03/19/17 09:17; Start 03/17/17 at 09:00 Urinary Catheter: No Vascular Central Line Catheter: No A/P Problem List: (1) Pain ICD Code: R52 - Pain, unspecified (2) LFT elevation ICD Code: R94.5 - Abnormal results of liver function studies Status: Acute (3) Cardiomyopathy ICD Code: I42.9 - Cardiomyopathy, unspecified Status: Chronic (4) Hypertension ICD Code: I10 - Essential (primary) hypertension Status: Acute (5) Malnutrition ICD Code: E46 - Unspecified protein-calorie malnutrition (6) Dyspnea ICD Code: R06.00 - Dyspnea, unspecified (7) Liver masses ICD Code: R16.0 - Hepatomegaly, not elsewhere classified Status: Acute Assessment and Plan Jaundice/liver masses/weight loss/abdominal pain/hyperbilirubinemia/ascites: - CT abdomen shows extensive hepatic masses consistent with primary or metastatic neoplasm. Multiple noncalcified pulmonary nodules with the largest located in the left lower lobe measuring 2.3 cm consistent with metastatic disease. Biliary ductal dilatation of indeterminate etiology. 11 mm splenic nodules which are indeterminate. 2.7 x 1.9 cm left adrenal mass which is indeterminate. - Ascites. s/p paracentesis. F/u on fluid studies which are pending. - GI following, appreciate their assistance. Recs are: "Palliative care was recommended if the bilirubin increases or if there are any signs of biliary sepsis, may consider ERCP versus PTCA supportive care" - MRCP shows extensive metastatic disease in the liver and likely the left lobe intrahepatic ductal dilatation due to associated mass effect. - Oncology also following, appreciate their assistance - s/p CT guided liver biopsy. Follow up on results. - CEA elevated 8427, AFP 1.6, CA19-9 3.1. suspecting metastatic colon cancer. - Patient presented with leukocytosis of 20.7 and a platelet count of 478. T bili of 22.2, AST 199, ALT 88. Alkaline phosphatase 640. Patient receive a dose of Zosyn in the emergency room. Continue IV Zosyn and Flagyl by mouth. Today T. Bili is 19.6 AST 198 ALT 80. Continue to monitor CMP, CBC and monitor Vitals. Anemia: 8.7 on admission, now 8.0. monitor closely and transfuse if <7.0. Patient admits to blood clots in his stools. hold aspirin. GI following. Hypokalemia: resolved Chest pain: Troponin 0.02 x 2. EKG no ST elevation or depression. atrial enlargement is noted on EKG. Chest pain is unchanged. Pt is known to Dr. Payne , will consult for further assistance. Continue pain control. I will check xray of ribs to r/o any bone lesions that could potentially cause pain as well since pt does have metastasis. blood clots per rectum: GI following. Hold ASA or any anticoagulation for now. BLE edema: Doppler US negative for DVT. Pancreatitis: Lipase level up to 1151. We'll hold off on giving IV fluids as patient already complaining of shortness of breath and has an EF of 30-35%. Clinically abdominal pain is improving. Hypertension:on lasix/spironolactone/enalapril/metoprolol/digoxin systolic CHF: Chest x-ray didn't show any pulm edema, BNP wnl. Suspect SOB is from ascites and increase abdominal girth. monitor. on lasix, digoxin, metoprolol and enalapril. DVT Proph: SCD. Avoid chemical anticoagulation due to anemia and pt passing blood clots. SP PARACENTESIS WILL CONSULT PALLIATIVE CARE- SIGNED UP WITH HOSPICE GI and oncology following. Appreciate assistance from all consultants. PT AND OT EVAL Pathology came back positive for adenocarcinoma of the colon with metastases to the liver Still wants aggressive therapy Hypokalemia we'll replace PATIENT HAS SIGNED UP WITH HOSPICE WILL GO HOME TO [facility] WITH HOME HOSPICE TODAY Anselmo Disla DO Mar 19, 2017 12:04
[2017-03-19] MEDS ORDERED: DOCU1CAP39 PO (12:10)
[2017-03-19] MEDS ORDERED: SENN8.6T15 PO (12:10)
[2017-03-19] MEDS ORDERED: TAMS5CAP PO (12:10)
[2017-03-19] MEDS ORDERED: SPIR25TA PO (12:10)
[2017-03-19] MEDS ORDERED: BISA10R RECTAL (12:10)
[2017-03-19] MEDS ORDERED: POTA-243 PO (12:10)
[2017-03-19] MEDS ORDERED: DIGO0.12 PO (12:10)
[2017-03-19] MEDS ORDERED: PANT40TA3 PO (12:10)
[2017-03-19] MEDS ORDERED: METO50TA PO (12:10)
[2017-03-19] MEDS ORDERED: Lactulose Liq PO (12:10)
[2017-03-19] MEDS ORDERED: METR-1 PO (12:10)
[2017-03-19] MEDS ORDERED: FURO40TA PO (12:10)
[2017-03-19] MEDS ORDERED: ENAL2.5T PO (12:10)
[2017-03-19] MEDS ORDERED: OXYC-395 PO (12:10)
--- NOTE | 2017-03-19 12:15 | HHI.DS ---
Discharge Summary Admission Date Mar 11, 2017 at 14:40 Discharge Date: Mar 19, 2017 Admitting Diagnosis Hyperbilirubinemia, Pancreatitis, Liver Masses (1) Pain ICD Code: R52 - Pain, unspecified Diagnosis: Secondary (2) LFT elevation ICD Code: R94.5 - Abnormal results of liver function studies Diagnosis: Secondary Status: Acute (3) Cardiomyopathy ICD Code: I42.9 - Cardiomyopathy, unspecified Diagnosis: Secondary Status: Chronic (4) Hypertension ICD Code: I10 - Essential (primary) hypertension Status: Acute (5) Malnutrition ICD Code: E46 - Unspecified protein-calorie malnutrition Diagnosis: Secondary (6) Dyspnea ICD Code: R06.00 - Dyspnea, unspecified Diagnosis: Secondary (7) Liver masses ICD Code: R16.0 - Hepatomegaly, not elsewhere classified Diagnosis: Principal Status: Acute (8) Colon cancer metastasized to liver ICD Code: C18.9 - Malignant neoplasm of colon, unspecified; C78.7 - Secondary malignant neoplasm of liver and intrahepatic bile duct Diagnosis: Principal Procedures PARACENTESIS AND LIVER BIOPSIES Brief History - From Admission Patient is a 66-year-old male with past medical history of severe nonischemic cardiomyopathy with an ejection fraction of 30-35% per echo in 2017, CHF, chronic deep venous insufficiency, multivalvular disease, hypertension presents to the emergency room with complaints of severe abdominal pain which started about 2 months ago. He states that his pain got worse today that he decided to come to the emergency room. He rates the pain a 7 out of 10 located diffusely but mainly points in the epigastric, and right upper quadrant area. Patient states that he has noticed swelling for the past 2 weeks in his legs and also in his abdomen. He noticed that his eyes are turning yellow. He also states he has the "runs "for the past month and a half. He hasn't seen his primary care doctor due to financial reasons. He also notes blood clots in his stools for the past 3 weeks. His urine is very dark however his stools that are very light in color. He also complains of chest pain on the left side around a 9 out of 10. He has no cough however he does have shortness of breath and he gets pain with inspiration. He was told by his military source operations officer that he would need a pacemaker at that time he didn't decide on it and he thinks he would like to discuss this with his military source operations officer. Currently, pain seems to be improving. He denies any nausea or vomiting. He denies any sore throat or runny nose. Pt admits to loosing 15 lbs in the past 2 months. CBC/BMP: 03/18/17 0546 03/18/17 0546 Significant Findings Laboratory Tests Test 03/17/17 07:21 03/18/17 05:46 White Blood Count 23.7 TH/MM3 (4.0-11.0) 20.7 TH/MM3 (4.0-11.0) Red Blood Count 2.32 MIL/MM3 (4.50-5.90) 2.35 MIL/MM3 (4.50-5.90) Hemoglobin 7.7 GM/DL (13.0-17.0) 7.7 GM/DL (13.0-17.0) Hematocrit 22.1 % (39.0-51.0) 22.5 % (39.0-51.0) Red Cell Distribution Width 20.9 % (11.6-17.2) 21.1 % (11.6-17.2) Neutrophils (%) (Auto) 89.5 % (16.0-70.0) 89.1 % (16.0-70.0) Lymphocytes (%) (Auto) 3.3 % (9.0-44.0) 3.3 % (9.0-44.0) Neutrophils # (Auto) 21.2 TH/MM3 (1.8-7.7) 18.4 TH/MM3 (1.8-7.7) Lymphocytes # (Auto) 0.8 TH/MM3 (1.0-4.8) 0.7 TH/MM3 (1.0-4.8) Monocytes # (Auto) 1.7 TH/MM3 (0-0.9) 1.5 TH/MM3 (0-0.9) Band Neutrophils % 15 % (0-6) Monocytes % 12 % (0-8) Neutrophils # (Manual) 18.5 TH/MM3 (1.8-7.7) 19.0 TH/MM3 (1.8-7.7) Target Cells 2+ (NORMAL) 1+ (NORMAL) Blood Urea Nitrogen 30 MG/DL (7-18) 34 MG/DL (7-18) Creatinine 1.58 MG/DL (0.60-1.30) 1.72 MG/DL (0.60-1.30) Total Protein 5.4 GM/DL (6.4-8.2) 5.7 GM/DL (6.4-8.2) Albumin 1.5 GM/DL (3.4-5.0) 1.4 GM/DL (3.4-5.0) Phosphorus Level 2.1 MG/DL (2.5-4.9) 2.2 MG/DL (2.5-4.9) Alkaline Phosphatase 454 U/L (45-117) 420 U/L (45-117) Aspartate Amino Transf (AST/SGOT) 164 U/L (15-37) 148 U/L (15-37) Total Bilirubin 18.7 MG/DL (0.2-1.0) 19.1 MG/DL (0.2-1.0) Sodium Level 129 MEQ/L (136-145) 129 MEQ/L (136-145) Carbon Dioxide Level 19.4 MEQ/L (21.0-32.0) 18.6 MEQ/L (21.0-32.0) Estimat Glomerular Filtration Rate 53 ML/MIN (>89) 48 ML/MIN (>89) Neutrophils % (Manual) 87 % (16-70) Lymphocytes % 4 % (9-44) Myelocytes 2 % (0-0) Calcium Level 8.4 MG/DL (8.5-10.1) Imaging Last Impressions Ribs X-Ray 03/13/17 0000 Signed Impressions: Service Date/Time: Monday, March 13, 2017 10:14 - CONCLUSION: No acute disease. Weston Westbrook MD Liver Biopsy CT 03/12/17 0757 Signed Impressions: Service Date/Time: Sunday, March 12, 2017 10:46 - CONCLUSION: Uncomplicated CT guided biopsy. Aguila Solano MD Cyst Biopsy Asp-Paracentesis US 03/12/17 0000 Signed Impressions: Service Date/Time: Sunday, March 12, 2017 09:16 - CONCLUSION: Uncomplicated ultrasound guided paracentesis. Aguila Solano MD Abdomen/Pelvis CT 03/11/17 1033 Signed Impressions: Service Date/Time: February 12:12 - CONCLUSION: 1. Extensive hepatic masses consistent with primary or metastatic neoplasm. 2. Multiple non-calcified pulmonary nodules with the largest located in the left lower lobe measuring 2.3 cm consistent with metastatic disease until proven otherwise. 3. Biliary ductal dilatation of indeterminate etiology. MRI of the abdomen with contrast and MRCP may be helpful for further evaluation if clinically indicated. 4. 11 mm splenic nodules which are indeterminate. 5. 2.7 x 1.9 cm left adrenal mass which is indeterminate. 6. Ascites. Aguila Solano MD Lower Extremity Ultrasound 03/11/17 0000 Signed Impressions: Service Date/Time: February 19:37 - CONCLUSION: No DVT. Weston Maya MD Cholangiopancreatography MRI 03/11/17 0000 Signed Impressions: Service Date/Time: February 18:17 - CONCLUSION: Extensive metastatic disease of the liver and I believe the left lobe intrahepatic ductal dilatation is due to associated mass effect. No intraductal stone or definite tumor demonstrated. Gallbladder and common bile duct are nondistended. Weston Maya MD Chest X-Ray 03/11/17 0000 Signed Impressions: Service Date/Time: February 10:49 - CONCLUSION: Normal examination. José Miguel Martinez MD PE at Discharge GENERAL: cachectic male, laying in bed, very pleasant. Awake and alert. EYES: scleral icterus noted. No injection or drainage. ENT: Nose without drainage. Airway patent. NECK: Trachea midline. CARDIOVASCULAR: Regular rate and rhythm . unreproducible chest pain RESPIRATORY: Mild crackles noted in right base. No wheezes appreciated. GASTROINTESTINAL: Abdomen soft, somewhat distended. Less tenderness to palpation. (+)Hepatomegaly. MUSCULOSKELETAL: Extremities pitting 1+ edema especially at the feet and ankles left greater than right. NEUROLOGICAL: Awake and alert. Able to move all extremities. Normal speech. Hospital Course Patient is a 66-year-old male with past medical history of severe nonischemic cardiomyopathy with an ejection fraction of 30-35% per echo in 2017, CHF, chronic deep venous insufficiency, multivalvular disease, hypertension presents to the emergency room with complaints of severe abdominal pain which started about 2 months ago. He states that his pain got worse today that he decided to come to the emergency room. He rates the pain a 7 out of 10 located diffusely but mainly points in the epigastric, and right upper quadrant area. Patient states that he has noticed swelling for the past 2 weeks in his legs and also in his abdomen. He noticed that his eyes are turning yellow. He also states he has the "runs "for the past month and a half. He hasn't seen his primary care doctor due to financial reasons. He also notes blood clots in his stools for the past 3 weeks. His urine is very dark however his stools that are very light in color. He also complains of chest pain on the left side around a 9 out of 10. He has no cough however he does have shortness of breath and he gets pain with inspiration. He was told by his military source operations officer that he would need a pacemaker at that time he didn't decide on it and he thinks he would like to discuss this with his military source operations officer. Currently, pain seems to be improving. He denies any nausea or vomiting. He denies any sore throat or runny nose. Pt admits to loosing 15 lbs in the past 2 months. STATES BREATHING BETTER TODAY CONSULT PALLIATIVE CARE POOR PERFORMANCE STATUS AT THIS TIME DW RN AND PT PT AND OT TO CONSULT 03-15 TO SEE PALLIATIVE CARE TODAY HOPEFULLY NO NEW COMPLAINTS DW RN AND PT 03-16 PATIENT IS STILL A FULL CODE DOES NOT WANT TO BE A DNR YET PATHOLOGY IS PENDING STILL APPEARS TO WANT AGGRESSIVE TREATMENT CONTINUE CURRENT PAIN CONTROL MEDS ADJUSTED 03-17 pathology came back positive for adenocarcinoma of the colon Metastatic colon cancer with metastases to the liver Discussed with patient and RN discussed with oncology Has been seen by palliative care already Has poor oral intake Replace potassium 40 mEq 2 today A.m. labs 03-18 SIGNED UP WITH HOSPICE WILL GO HOME TO HIS SISTER'S HOUSE TODAY 03-19 AWAIT DELIVERY OF EQUIPMENT AT [facility] AND WILL DC UNDER HOME HOSPICE CARE TODAY COMPLAINS OF ABDOMINAL PAIN POOR PROGNOSIS ONCOLOGY RECOMMENDED HOSPICE Pt Condition on Discharge: Deteriorating Discharge Disposition: Hospice/ Home Discharge Time: > 30 minutes Discharge Instructions DIET: Follow Instructions for: As Tolerated, No Restrictions Speech Therapy-Diet Recommends: Regular Activities you can perform: Regular-No Restrictions Other Activity Instructions: TOLERATED Follow up Referrals: PCP Follow-up - 1 Week with Daniel Correa MD New Medications: Bisacodyl Supp (Bisac-Evac Supp) 10 Mg Supp 10 MG RECTAL DAILY PRN for SEVERE CONSITIPATION, #30 SUPP Docusate Sodium (Dok) 100 Mg Cap 100 MG PO TID for Constipation, #90 CAP Metronidazole (Flagyl) 500 Mg Tab 500 MG PO Q6HR for Infection, #40 TAB Oxycodone (Oxycodone) 10 Mg Tab 10 MG PO Q4H PRN for pain 6-10, #100 TAB 1 TO 2 TABS PRN PAIN Pantoprazole (Pantoprazole) 40 Mg Tab 40 MG PO Q12HR for Heartburn Management, #60 TAB Potassium Chloride ER (Klor-Con 10) 10 Meq Tab 40 MEQ PO DAILY for Electrolyte Replacement, #60 TAB Sennosides (Senna Lax) 8.6 Mg Tab 17.2 MG PO Q12H PRN for MODERATE - SEVERE CONSTIPATION, #120 TAB [Lactulose Liq] () 30 ML SYRP 30 ML PO DAILY PRN for SEVERE CONSITIPATION, #900 ML Continued Medications: Digoxin (Digoxin) 0.125 Mg Tab 0.125 MG PO DAILY for Regulate Heart Beat, #30 TAB 0 Refills (This prescription has been renewed) Enalapril (Enalapril) 2.5 Mg Tab 2.5 MG PO BID for Blood Pressure Management, #60 TAB 0 Refills (This prescription has been renewed) Furosemide (Furosemide) 40 Mg Tab 40 MG PO DAILY for Blood Pressure Management, #30 TAB 0 Refills (This prescription has been renewed) Metoprolol Tartrate (Metoprolol Tartrate) 50 Mg Tab 50 MG PO BID for Blood Pressure Management, #60 TAB 0 Refills (This prescription has been renewed) Spironolactone (Spironolactone) 25 Mg Tab 25 MG PO BIDPC for Blood Pressure Management, #60 TAB 0 Refills (This prescription has been renewed) Tamsulosin (Flomax) 0.4 Mg Cap 0.4 MG PO HS for Manage Prostate Problems, #30 CAP 0 Refills (This prescription has been renewed) Discontinued Medications: Aspirin DR (Aspirin DR) 81 Mg Tabdr 81 MG PO DAILY, TAB 0 Refills Additional Information HOSPICE TO FOLLOW AT HOME Anselmo Disla DO Mar 19, 2017 12:15
[2017-03-19 12:20] VITALS: BP 109/58; PULSE 77; RESP 20; TEMP 97.3; O2SAT 97
== END 2017-03-19 15:51 | disposition hospice, home (50) | DRG 374 ==
LOC: NEPC 09:59 → NEDA 14:40 → HOCA 16:20
PROVIDERS: ADMIT Hospitalist; ATTEND Hospitalist
PROC: 0FB03ZX Excision of Liver, Percutaneous Approach, Diagnostic (ICD-10-PCS; principal; 2017-03-12)
PROC: 0W9G3ZX Drainage of Peritoneal Cavity, Percutaneous Approach, Diagnostic (ICD-10-PCS; 2017-03-12)
DX: C18.9 Malignant neoplasm of colon, unspecified (principal); K85.90 Acute pancreatitis without necrosis or infection, unspecified; R64 Cachexia; C78.7 Secondary malignant neoplasm of liver and intrahepatic bile duct; I11.0 Hypertensive heart disease with heart failure; E46 Unspecified protein-calorie malnutrition; R18.8 Other ascites; I50.20 Unspecified systolic (congestive) heart failure; D62 Acute posthemorrhagic anemia; K92.1 Melena; E27.8 Other specified disorders of adrenal gland; I08.3 Combined rheumatic disorders of mitral, aortic and tricuspid valves; I87.2 Venous insufficiency (chronic) (peripheral); Z79.82 Long term (current) use of aspirin; Z86.718 Personal history of other venous thrombosis and embolism; I25.5 Ischemic cardiomyopathy; E87.6 Hypokalemia; Z51.5 Encounter for palliative care; Z68.21 Body mass index [BMI] 21.0-21.9, adult
CPT/HCPCS: 47000; 49083; 71010; 71111; 74177; 74183; 76377; 76937; 77012; 80053; 82042; 82105; 82140; 82150; 82378; 82550; 82945; 83036; 83615; 83690; 83735; 83880; 84100; 84155; 84157; 84439; 84443; 84484; 85007; 85027; 85610; 85730; 86301; 87070; 87205; 87493; 88112; 88305; 88307; 88341; 88342; 89051; 93005; 93970; 96374; A9579; C1729; J2250; J2543; J3010; J7030; Q9967